=== PATIENT | male | born 1935 | race Caucasian/White ===

== ENCOUNTER 2017-03-25 14:51 | Emergency (ER) | payer OTHER, MEDICARE ==
[2017-03-25] MEDS ORDERED: DIPH/PERTUSS(ACELL)/TETANUS VAC/PF 0.5 ML SYR (>=10YO) IM ONE (15:54)
[2017-03-25] MEDS ORDERED: ONDANSETRON 4 MG TAB.RAPDIS PO ONE (15:54)
[2017-03-25] MEDS ORDERED: OXYCODONE HCL IR 5 MG TABLET PO ONE (15:54)
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
[2017-03-25] MEDS ORDERED: OXYCODONE-ACETAMINOPHEN 5-325 MG TABLET PO ONE (17:33)
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
--- NOTE | 2017-03-25 19:08 | EKG REPORT ---
SEVERITY:- ABNORMAL ECG - ATRIAL FIBRILLATION, V-RATE 50-76 : Confirmed by: Pola Last MD 25-Mar-2017 19:07:03
[2017-03-25 19:31] VITALS: BP 149/79
== END 2017-03-25 18:40 | disposition home or self-care (01) ==
LOC: ER 14:51
DX: S20.212A Contusion of left front wall of thorax, initial encounter (principal); S30.1XXA Contusion of abdominal wall, initial encounter; S80.11XA Contusion of right lower leg, initial encounter; S51.811A Laceration without foreign body of right forearm, initial encounter; R07.81 Pleurodynia; V43.52XA Car driver injured in collision with other type car in traffic accident, initial encounter; I48.91 Unspecified atrial fibrillation; I25.10 Atherosclerotic heart disease of native coronary artery without angina pectoris; E78.00 Pure hypercholesterolemia, unspecified; I10 Essential (primary) hypertension; E11.9 Type 2 diabetes mellitus without complications; K21.9 Gastro-esophageal reflux disease without esophagitis; G89.29 Other chronic pain; M54.9 Dorsalgia, unspecified; Z79.02 Long term (current) use of antithrombotics/antiplatelets; I25.2 Old myocardial infarction; Z23 Encounter for immunization
CPT/HCPCS: 93005; 99284; 90471; 71020; 73562; 73590; 70450; 90715; 93010; S0119

== ENCOUNTER 2017-07-19 10:28 | Day surgery (SDC) | payer MEDICARE ==
[2017-07-08 12:21] LABS: HEMATOCRIT 39.5 % (37.9-51.0); HEMOGLOBIN 13.1 g/dL (13.5-17.0); HGB HCT DIFFERENCE -0.2; MEAN CORPUSCULAR HEMOGLOBIN 31.2 pg (27.0-33.4); MEAN CORPUSCULAR HGB CONC 33.1 g/dL (32.0-36.0); MEAN CORPUSCULAR VOLUME 94 fl (80-97); RED CELL DISTRIBUTION WIDTH 13.9 % (11.5-14.0); WHITE BLOOD COUNT 6.4 10^3/uL (4.0-10.5)
[2017-07-08 12:24] LABS: PROTHROMBIN TIME 15.2 SEC (11.4-15.4)
[2017-07-08 12:25] LABS: PARTIAL THROMBOPLASTIN TIME 38.3 SEC (23.5-35.8)
[2017-07-08 12:56] LABS: ANION GAP 11 (5-19); BLOOD UREA NITROGEN 25 mg/dL (7-20); CALCIUM 9.8 mg/dL (8.4-10.2); CARBON DIOXIDE 26 mmol/L (22-30); CHLORIDE 103 mmol/L (98-107); CREATININE RESULT 1.49 mg/dL (0.52-1.25); GLUCOSE 159 mg/dL (75-110); POTASSIUM 4.2 mmol/L (3.6-5.0); SODIUM 140.1 mmol/L (137-145)
--- NOTE | 2017-07-08 18:44 | EKG REPORT ---
SEVERITY:- ABNORMAL ECG - ATRIAL FIBRILLATION NONSPECIFIC T ABNORMALITIES, LATERAL LEADS : Confirmed by: Pola Last MD 08-Jul-2017 18:43:58
--- NOTE | 2017-07-11 14:24 | RADIOLOGY REPORT (SQ) ---
EXAM DESCRIPTION: CHEST PA/LATERAL COMPLETED DATE/TIME: 07/11/2017 1:40 pm REASON FOR STUDY: PRE OP COMPARISON: None. EXAM PARAMETERS: NUMBER OF VIEWS: two views TECHNIQUE: Digital Frontal and Lateral radiographic views of the chest acquired. RADIATION DOSE: NA LIMITATIONS: none FINDINGS: LUNGS AND PLEURA: No opacities, masses or pneumothorax. No pleural effusion. MEDIASTINUM AND HILAR STRUCTURES: No masses or contour abnormalities. HEART AND VASCULAR STRUCTURES: Heart normal size. No evidence for failure. Tortuous thoracic aorta is identified. BONES: No acute findings. HARDWARE: None in the chest. OTHER: No other significant finding. IMPRESSION: NO SIGNIFICANT RADIOGRAPHIC FINDING IN THE CHEST. TECHNICAL DOCUMENTATION: JOB ID: [id number] [employer]- All Rights Reserved
[~2017-07-19 10:28] MED LIST: CEFAZOLIN 1 GM/D5W RTU 1 GM/50 ML RTUPB IV PRN; LIDOCAINE 1% INJ-PF (10 MG/ML) 30 ML SDV ONE; NORMAL SALINE 1000 ML 1,000 ML IV PRN; SODIUM BICARBONATE 8.4% INJ 50 MEQ/50 ML DISP.SYRIN ONE
[2017-07-19] MEDS ORDERED: KETAMINE HCL INJ 500 MG/10 ML VIAL ONE (11:23)
[2017-07-19] MEDS ORDERED: LIDOCAINE 2% INJ-PF (20 MG/ML) 10 ML AMPUL ONE (11:23)
[2017-07-19] MEDS ORDERED: ACETAMINOPHEN 100 ML IV ONE (11:24)
[2017-07-19] MEDS ORDERED: MIDAZOLAM 2 MG/2 ML INJ ONE (11:24)
[2017-07-19] MEDS ORDERED: FENTANYL CITRATE INJ/PF 100 MCG/2 ML AMPUL ONE (11:24)
[2017-07-19] MEDS ORDERED: PROPOFOL INJ 200 MG/20 ML VIAL IV ONE (11:24)
[2017-07-19] MEDS ORDERED: LIDOCAINE 0.5%/EPINEPHRINE INJ 50 ML VIAL ONE (11:30)
[2017-07-19 11:33] LABS: POTASSIUM 4.1 mmol/L (3.6-5.0)
[2017-07-19] MEDS ORDERED: DIPHENHYDRAMINE HCL 50 MG/ML VIAL IV PRN (12:32)
[2017-07-19] MEDS ORDERED: FENTANYL CITRATE INJ/PF 100 MCG/2 ML AMPUL IV PRN ×3 (12:32)
[2017-07-19] MEDS ORDERED: PROMETHAZINE HCL INJ 25 MG/1 ML VIAL IV PRN ×2 (12:32)
[2017-07-19] MEDS ORDERED: OXYCODONE-ACETAMINOPHEN 5-325 MG TABLET PO PRN ×2 (12:32)
[2017-07-19] MEDS ORDERED: MORPHINE SULFATE 10 MG/ML INJ IV PRN (12:32)
[2017-07-19] MEDS ORDERED: MEPERIDINE HCL/PF INJ 25 MG/1 ML DISP.SYRIN IV PRN (12:32)
[2017-07-19] MEDS ORDERED: ONDANSETRON HCL INJ/PF 4 MG/2 ML SDV IV PRN (12:32)
--- NOTE | 2017-07-19 13:31 | Operative Report ---
Operative Report DATE OF SURGERY: 07/19/17 PREOPERATIVE DIAGNOSIS: Basal cell carcinoma of the left distal forearm POSTOPERATIVE DIAGNOSIS: Same deep and lateral margins are free. OPERATION: Excision of basal cell carcinoma of the left distal forearm with frozen section margin control and reconstruction with a boomerang sliding advancement flap SURGEON: JERRELL BBO ANESTHESIA: LMAC TISSUE REMOVED OR ALTERED: Basal cell carcinoma COMPLICATIONS: None ESTIMATED BLOOD LOSS: Minimal PROCEDURE: Patient seen and was marked prior to being brought into the operating room. Patient was brought into the operating room and placed on the operating room table in a [supine] position. Patient was then prepped with a Betadine scrub and Betadine solution and draped in a sterile and aseptic manner. The area was then marked. 12 O'clock was marked towards the elbow 3 O'clock was marked towards the ulnar forearm 6:00 was marked towards the wrist 9:00 was marked towards the radial forearm The area was then anesthetized with half percent lidocaine with epinephrine and bicarbonate for its anesthetic and hemostatic effects. The area was then excised and marked at 12:00. The specimen was sent for frozen section. The results came back that the deep and lateral margins were free. We had considered a primary closure but this would go against the natural relaxed skin tension lines. A primary closure would be too tight and would have increased chance of dehiscence. This will leave more of a scar so we decided to use a boomerang flap reconstruction which would camouflage the scar better and take tension off of the closure so that would be less chances of complications. Then went ahead and outlined the flap and anesthetized it. Then incised the flap and developed a flap maintaining the subdermal plexus. Then we undermined 360 to allow for plate like scarring and minimize trap door deformity. Throughout the case hemostasis was achieved with the bipolar. The skin was very fragile and it was difficult to perform the reconstruction. Again the flap was designed so that would be the least amount of tension especially when the patient flexes his wrist. We were unable to do a deep closure because the tissue was so poor quality and so thin. We then sutured the flap into its new position using 4-0 Prolene . Skin was closed with a simple interrupted and vertical mattress sutures using 4- 0 Prolene with knots being tied on the outside. We then applied tincture benzoin and Steri-Strips followed by a light pressure dressing. A splint was applied to protect the repair. It was good that we had placed a splint with the wrist in extension because the patient was combative on awakening and this would have tore the reconstruction if we did not have a splint. Patient was then reversed from anesthesia and taken to the [facility] for recovery. The patient tolerated well. There were no complications. Lesion size was [approximately 1 cm] please see pathology for actual size. Portions of this note may be dictated using [employer] voice recognition software. Occasional variations and spelling and vocabulary could be possible and are unintentional. Additionally, there is a chance that some errors may not be caught or corrected. Please notify the offer of any discrepancies noted or if any statements are unclear. Subjective: No complaints Objective: Vital signs stable afebrile No bleeding Dressing intact Assessment and plan: Doing well. Elevate the operative site. Resume medications. Take antibiotics for 1 day Follow-up Full instructions were given to the patient and family and they understand Portions of this note may be dictated using [employer] voice recognition software. Occasional variations and spelling and vocabulary could be possible and are unintentional. Additionally, there is a chance that some errors may not be caught or corrected. Please notify the offer of any discrepancies noted or if any statements are unclear.
--- NOTE | 2017-07-19 13:33 | PDOC DISCHARGE SUMMARY ---
Discharge Summary (SDC) - Discharge Final Diagnosis: Basal cell carcinoma of the left distal forearm Date of Surgery: 07/19/17 Condition: Good Treatment or Instructions: Leave the top dressing on for 2 days, then removed. Leave the steri-strip tapes on for 5 days, then removal. Then cleaning wound with peroxide and apply Neosporin/bacitracin 3 times per day. Antibiotics for 1 day, then discontinue. Elevate operative area to decrease swelling. Do not strain, or lift heavy objects. Call for excessive bleeding, increased temperature of 101, uncontrolled pain, or excessive nausea or vomiting. You may reach Dr. Burger through his office at [phone]. In the event of an emergency after hours, then contact Dr. Burger through [facility]. Return to the office for a postop check on . The time will be scheduled by the nursing staff of [facility] prior to discharge. Please give the patient a copy of their labs and EKG so they can bring this to their PMD. Thank you Portions of this note may be dictated using [employer] voice recognition software. Occasional variations and spelling and vocabulary could be possible and are unintentional. Additionally, there is a chance that some errors may not be caught or corrected. Please notify the offer of any discrepancies noted or if any statements are unclear. Referrals: ANNA MARTI MD [Primary Care Provider] - Discharge Activity: No Lifting Over 10 Pounds, No Lifting/Push/Pulling - Keep the arm elevated. Limited activities with the arm that was operated on.
[2017-07-19 15:02] VITALS: BP 146/81
== END 2017-07-19 15:01 | disposition home or self-care (01) ==
LOC: OROUT 10:28
PROVIDERS: ATTEND Plastic Surgery
PROC: 0HBEXZZ Excision of Left Lower Arm Skin, External Approach (ICD-10-PCS; 2017-07-19)
PROC: 0HXEXZZ Transfer Left Lower Arm Skin, External Approach (ICD-10-PCS; principal; 2017-07-19 12:30)
DX: C44.699 Other specified malignant neoplasm of skin of left upper limb, including shoulder (principal); E11.9 Type 2 diabetes mellitus without complications; E78.5 Hyperlipidemia, unspecified; I10 Essential (primary) hypertension; K21.9 Gastro-esophageal reflux disease without esophagitis; I48.2 Chronic atrial fibrillation; N40.0 Benign prostatic hyperplasia without lower urinary tract symptoms; C44.619 Basal cell carcinoma of skin of left upper limb, including shoulder; M19.90 Unspecified osteoarthritis, unspecified site; E66.9 Obesity, unspecified; Z68.30 Body mass index [BMI] 30.0-30.9, adult; Z79.82 Long term (current) use of aspirin; Z79.01 Long term (current) use of anticoagulants; Z79.899 Other long term (current) drug therapy
CPT/HCPCS: 93005; 36415 ×2; 82947; 84132; 85027; 85610; 85730; 80048; 88305 ×2; 88331 ×2; 71020; 93010; 14020; J2250; J0690; J3010; J3490 ×4; J2704; J0131; 400

== ENCOUNTER 2017-10-15 18:27 | Emergency (ER) | payer MEDICARE ==
--- NOTE | 2017-10-15 20:10 | RADIOLOGY REPORT (SQ) ---
EXAM DESCRIPTION: CT HEAD WITHOUT COMPLETED DATE/TIME: 10/15/2017 7:58 pm REASON FOR STUDY: fall COMPARISON: 03/25/2017 TECHNIQUE: Axial images acquired through the brain without intravenous contrast. Images reviewed wi th bone, brain and subdural windows. Images stored on PACS. All CT scanners at this facility use dose modulation, iterative reconstruction, and/or weight based d osing when appropriate to reduce radiation dose to as low as reasonably achievable (ALARA). [facility]: Dose Right [facility]: CareDose [facility]: Dose Right [facility]: Teradose 4D [facility]: Smart DataSync RADIATION DOSE: CT Rad equipment meets quality standard of care and radiation dose reduction techniq ues were employed. CTDIvol: 64.6 mGy. DLP: 1163 mGy-cm.mGy. LIMITATIONS: None. FINDINGS: VENTRICLES: Stable size and configuration. CEREBRUM: No masses. No hemorrhage. No midline shift. Areas of low density in the white matter mos t likely due to chronic micro-vascular ischemic change. No evidence for acute infarction. CEREBELLUM: No masses. No hemorrhage. No alteration of density. No evidence for acute infarction. EXTRAAXIAL SPACES: Age-related involutional change. No fluid collections. No masses. ORBITS AND GLOBE: No intra- or extraconal masses. Normal contour of globe without masses. CALVARIUM: No fracture. PARANASAL SINUSES: Left maxillary mucous retention cyst versus polyp. SOFT TISSUES: No mass or hematoma. OTHER: Atherosclerotic vascular calcifications are seen within the cavernous segments of the internal carotid arteries. IMPRESSION: CHRONIC CHANGES OF ATROPHY AND MICROVASCULAR ISCHEMIA. NO ACUTE PROCESS. EVIDENCE OF ACUTE STROKE: NO. TECHNICAL DOCUMENTATION: JOB ID: [id number] Quality ID # [id number]: Final reports with documentation of one or more dose reduction techniques (e.g., Au tomated exposure control, adjustment of the mA and/or kV according to patient size, use of iterative reconstruction technique) 2010 [employer]- All Rights Reserved
[2017-10-15 20:23] VITALS: BP 162/80
--- NOTE | 2017-10-15 20:23 | ER Document Report ---
ED General - General Chief Complaint: Fall Injury Stated Complaint: FALL HEAD INJURY Time Seen by Provider: 10/15/17 19:51 TRAVEL OUTSIDE OF THE [place] IN LAST 30 DAYS: No - HPI Patient complains to provider of: Fall head injury Notes: Patient coming in for evaluation of fall and head injury. Patient states he is on Eliquis due to a "heart condition". Patient states tripped and fall hitting the left side of his head. Patient does have obvious contusion. Patient has other abrasions as well. Denies any chest pain abdominal pain fever chills nausea vomiting denies any syncope denies any loss of consciousness. - Related Data Allergies/Adverse Reactions: adhesive tape Adverse Reaction (Intermediate, Verified 10/15/17 18:49) Pruritis Past Medical History - Social History Smoking Status: Never Smoker Frequency of alcohol use: None Drug Abuse: None Family History: CAD Patient has suicidal ideation: No Patient has homicidal ideation: No - Past Medical History Cardiac Medical History: Reports: Hx Atrial Fibrillation, Hx Coronary Artery Disease, Hx Heart Attack - [place] X 2, Hx Hypercholesterolemia, Hx Hypertension Denies: Hx Congestive Heart Failure, Hx Heart Murmur Pulmonary Medical History: Denies: Hx Asthma, Hx Bronchitis, Hx COPD, Hx Pneumonia, Hx Tuberculosis Neurological Medical History: Denies: Hx Cerebrovascular Accident, Hx Seizures Endocrine Medical History: Reports: Hx Diabetes Mellitus Type 2 Renal/ Medical History: Denies: Hx Peritoneal Dialysis GI Medical History: Reports: Hx Gastroesophageal Reflux Disease, Hx Hiatal Hernia. Denies: Hx Hepatitis, Hx Ulcer Musculoskeltal Medical History: Reports Hx Arthritis, Denies Hx Muscle Weakness Psychiatric Medical History: Denies: Hx Depression Infectious Medical History: Denies: Hx Hepatitis Past Surgical History: Reports: Hx Cardiac Catheterization, Hx Coronary Stent, Hx Herniorrhaphy. Denies: Hx Pacemaker. Comment Only: Hx Open Heart Surgery - STENT PLACED - Immunizations Hx Diphtheria, Pertussis, Tetanus Vaccination: Yes Hx Pneumococcal Vaccination: 03/04/14 Review of Systems - Review of Systems Constitutional: No symptoms reported EENT: No symptoms reported Cardiovascular: No symptoms reported Respiratory: No symptoms reported Gastrointestinal: No symptoms reported Genitourinary: No symptoms reported Male Genitourinary: No symptoms reported Musculoskeletal: No symptoms reported Skin: No symptoms reported Hematologic/Lymphatic: No symptoms reported Neurological/Psychological: Other - Abrasions to the head fall head injury Physical Exam - Vital signs Vitals: Temp Pulse Resp BP Pulse Ox 98.3 F 51 L 22 H 151/69 H 96 10/15/17 18:41 10/15/17 18:41 10/15/17 18:41 10/15/17 18:41 10/15/17 18:41 Interpretation: Normal - General General appearance: Appears well, Alert - HEENT Head: Normocephalic, Other - Swelling to the left orbit some bruising lateral left orbit. No pain to palpation the pain to palpation of the poles of the face. Eyes: Normal Pupils: PERRL - Respiratory Respiratory status: No respiratory distress Chest status: Nontender Breath sounds: Normal Chest palpation: Normal - Cardiovascular Rhythm: Regular Heart sounds: Normal auscultation Murmur: No - Abdominal Inspection: Normal Distension: No distension Bowel sounds: Normal Tenderness: Nontender Organomegaly: No organomegaly - Back Back: Normal, Nontender - Extremities General upper extremity: Normal inspection, Nontender, Normal color, Normal ROM , Normal temperature, Other - Abrasions to both hands General lower extremity: Normal inspection, Nontender, Normal color, Normal ROM , Normal temperature, Normal weight bearing. No: Maru's sign - Neurological Neuro grossly intact: Yes Cognition: Normal Orientation: AAOx4 Perham Coma Scale Eye Opening: Spontaneous Amber Coma Scale Verbal: Oriented Perham Coma Scale Motor: Obeys Commands Amber Coma Scale Total: 15 Speech: Normal Motor strength normal: LUE, RUE, LLE, RLE Sensory: Normal - Psychological Associated symptoms: Normal affect, Normal mood - Skin Skin Temperature: Warm Skin Moisture: Dry Skin Color: Normal Course - Re-evaluation Re-evalutation: 10/15/17 20:22 CT scan was negative. Patient was educated about abrasion care. Patient will be discharged home family members agrees with care. - Vital Signs Vital signs: Temp Pulse Resp BP Pulse Ox 98.3 F 51 L 22 H 151/69 H 96 10/15/17 18:41 10/15/17 18:41 10/15/17 18:41 10/15/17 18:41 10/15/17 18:41 Discharge - Discharge Clinical Impression: Closed head injury Qualifiers: Encounter type: initial encounter Qualified Code(s): S09.90XA - Unspecified injury of head, initial encounter Orbital contusion Qualifiers: Encounter type: initial encounter Laterality: left Qualified Code(s): S05.12XA - Contusion of eyeball and orbital tissues, left eye, initial encounter Condition: Good Disposition: HOME, SELF-CARE Instructions: Head Injury Precautions ([facility]), Contusion ([facility]) Additional Instructions: Your CAT scan does not show any evidence of bleeding at this time. Please follow-up with your primary care physician as needed. Return to the ER for any concerning issues.
== END 2017-10-15 20:23 | disposition home or self-care (01) ==
LOC: ER 18:27
DX: S05.12XA Contusion of eyeball and orbital tissues, left eye, initial encounter (principal); S09.90XA Unspecified injury of head, initial encounter; R22.0 Localized swelling, mass and lump, head; W19.XXXA Unspecified fall, initial encounter
CPT/HCPCS: 70450; 99284

== ENCOUNTER 2018-10-31 14:34 | Emergency (ER) | payer MEDICARE ==
[2018-10-31 14:52] VITALS: BP 143/67
[2018-10-31] MEDS ORDERED: OXYCODONE-ACETAMINOPHEN 5-325 MG TABLET PO ONE (15:25)
--- NOTE | 2018-10-31 15:27 | ER Document Report ---
ED Fall - General Chief Complaint: Fall Injury Stated Complaint: FALL/ARM PAIN Time Seen by Provider: 10/31/18 15:15 TRAVEL OUTSIDE OF THE [place] IN LAST 30 DAYS: No - HPI Notes: Patient is a 82-year-old male that presents to the emergency department for chief complaint of right shoulder pain. Just prior to arrival patient was sitting in a wheelchair. He states he leaned forward in the chair went out from behind him. He fell on his right side. He denied any head injury or loss of consciousness. Since then he has had a sharp pain in his right shoulder and elbow. The pain is worse with movement. He has not taken any [id number] medications for pain. He denies any numbness or tingling. He denies any relieving factors. He is currently taking Eliquis for history of heart attacks. Past Medical History: IN, CAD Past Surgical History: reviewed in chart Social History: Denies drugs alcohol and tobacco Family History: Reviewed and noncontributory for presenting illness Allergies: Reviewed, see documented allergy list. REVIEW OF SYSTEMS: CONSTITUTIONAL : No fever No chills No diaphoresis No recent illness EENT: No vision changes No congestion No sore throat CARDIOVASCULAR: No chest pain No palpitations RESPIRATORY: No shortness of breath No cough No difficulty breathing GASTROINTESTINAL: No abdominal pain No nausea No vomiting No diarrhea GENITOURINARY: No dysuria No hematuria No difficulty urinating MUSCULOSKELETAL: No back pain No leg pain arm pain SKIN: No rashes No lesions LYMPHATIC: No swollen, enlarged glands. NEUROLOGICAL: No lightheadedness No headache No weakness No paresthesias PSYCHIATRIC: No anxiety No depression PHYSICAL EXAMINATION: Vital signs reviewed, nursing noted reviewed. GENERAL: Well-appearing, well-nourished and in no acute distress. HEAD: Atraumatic, normocephalic. EYES: Eyes appear normal, extraocular movements intact, sclera anicteric, conjunctiva are normal. ENT: nares patent, oropharynx clear without exudates. Moist mucous membranes. NECK: Normal range of motion, supple without lymphadenopathy LUNGS: Breath sounds clear to auscultation bilaterally and equal. No wheezes rales or rhonchi. HEART: Regular rate and rhythm without murmurs ABDOMEN: Soft, nontender, normoactive bowel sounds. No rebound, guarding, or rigidity. No masses appreciated. EXTREMITIES: Decreased range of motion of right shoulder, no obvious deformity, tenderness to palpation of right shoulder, humerus and elbow diffusely. Normal range of motion of right elbow. Normal right wrist exam. No overlying ecchymosis or abrasions. NEUROLOGICAL: No focal neurological deficits. Moves all extremities spontaneously Motor and sensory grossly intact on exam. PSYCH: Normal mood, normal affect. SKIN: Warm, Dry, normal turgor, no rashes or lesions noted on exposed skin - Related data Allergies/Adverse Reactions: adhesive tape Adverse Reaction (Intermediate, Verified 10/15/17 18:49) Pruritis Past Medical History - Social History Smoking Status: Unknown if Ever Smoked Family History: CAD Patient has suicidal ideation: No Patient has homicidal ideation: No - Past Medical History Cardiac Medical History: Reports: Hx Atrial Fibrillation, Hx Coronary Artery Disease, Hx Heart Attack - [place] X 2, Hx Hypercholesterolemia, Hx Hypertension Denies: Hx Congestive Heart Failure, Hx Heart Murmur Pulmonary Medical History: Denies: Hx Asthma, Hx Bronchitis, Hx COPD, Hx Pneumonia, Hx Tuberculosis Neurological Medical History: Denies: Hx Cerebrovascular Accident, Hx Seizures Endocrine Medical History: Reports: Hx Diabetes Mellitus Type 2 Renal/ Medical History: Denies: Hx Peritoneal Dialysis GI Medical History: Reports: Hx Gastroesophageal Reflux Disease, Hx Hiatal Hernia. Denies: Hx Hepatitis, Hx Ulcer Musculoskeletal Medical History: Reports Hx Arthritis, Denies Hx Muscle Weakness Psychiatric Medical History: Denies: Hx Depression Infectious Medical History: Denies: Hx Hepatitis Past Surgical History: Reports: Hx Cardiac Catheterization, Hx Coronary Stent, Hx Herniorrhaphy. Denies: Hx Pacemaker. Comment Only: Hx Open Heart Surgery - STENT PLACED - Immunizations Hx Diphtheria, Pertussis, Tetanus Vaccination: Yes Hx Pneumococcal Vaccination: 03/04/14 Physical Exam - Vital signs Vitals: Temp Pulse Resp BP Pulse Ox 98.0 F 53 L 20 143/67 H 98 10/31/18 14:49 10/31/18 14:49 10/31/18 14:49 10/31/18 14:49 10/31/18 14:49 Course - Re-evaluation Re-evalutation: 10/31/18 15:27 Vitals reviewed. Nursing notes reviewed. Patient given pain medication for symptom medic management. X-ray of the right shoulder and elbow will be obtained to evaluate for acute fracture. Patient did not have any head injury and has no active bleeding. Further blood work not currently indicated. 12/11/18 16:14 X-ray shows no acute fracture. Patient will be given a sling for comfort. He will be given a prescription for Woodland for pain management at home. He was advised to follow closely with his primary care doctor for reevaluation. He will stop using the sling as tolerated. I did encourage him to range his shoulder through full range of motion a few times a day to prevent frozen shoulder. He will return for any new or worsening symptoms. Discharged home in stable condition. - Vital Signs Vital signs: Temp Pulse Resp BP Pulse Ox 98.0 F 53 L 20 143/67 H 98 10/31/18 14:49 10/31/18 14:49 10/31/18 14:49 10/31/18 14:49 10/31/18 14:49 Discharge - Discharge Clinical Impression: Right elbow pain, Pulmonary nodule Right shoulder pain Qualifiers: Chronicity: acute Qualified Code(s): M25.511 - Pain in right shoulder Condition: Stable Disposition: HOME, SELF-CARE Instructions: Shoulder Injury ([facility]), Temporary Sling ([facility]) Additional Instructions: Please return to the emergency department if you have any worsening, or concern of your symptoms. Please return to the emergency department if you develop chest pain, difficulty breathing, severe abdominal pain, or ongoing vomiting. Please follow-up with your primary care physician in 2-3 days and any other recommended physicians. If prescribed, take all medications as directed. If you have any questions or concerns do not hesitate to return the emergency department for evaluation. There was a nodule seen on the top of your right lung which looked similar in comparison to previous studies. Follow with your primary care doctor for further management of this lung nodule. Prescriptions: Hydrocodone/Acetaminophen [[place] 5-325 mg Tablet] 1 tab PO Q6 #10 tablet Referrals: ANGELO FULTON MD [Primary Care Provider] - Follow up in 3-5 days
--- NOTE | 2018-10-31 15:58 | RADIOLOGY REPORT (SQ) ---
EXAM DESCRIPTION: ELBOW RIGHT AP/LAT COMPLETED DATE/TIME: 10/31/2018 3:50 pm REASON FOR STUDY: trauma COMPARISON: None. NUMBER OF VIEWS: Two views. TECHNIQUE: AP and lateral radiographic images acquired of the right elbow. LIMITATIONS: None. FINDINGS: MINERALIZATION: Normal. BONES: No acute fracture or dislocation. No worrisome bone lesions. JOINT: No effusion. SOFT TISSUES: No soft tissue swelling. No foreign body. OTHER: No other significant finding. IMPRESSION: No fracture or dislocation of the right elbow. No elbow joint effusion to suggest radio graphically occult fracture of the right radial head or neck. TECHNICAL DOCUMENTATION: JOB ID: [id number] [employer]- All Rights Reserved Reading location - IP/workstation name: [email or web address]
--- NOTE | 2018-10-31 16:00 | RADIOLOGY REPORT (SQ) ---
EXAM DESCRIPTION: SHOULDER RIGHT 2 OR MORE VIEWS COMPLETED DATE/TIME: 10/31/2018 3:50 pm REASON FOR STUDY: trauma COMPARISON: Chest radiograph, 07/11/2007 NUMBER OF VIEWS: Three views. TECHNIQUE: Internal rotation, external rotation, and Y view images acquired of the right shoulder. LIMITATIONS: None. FINDINGS: MINERALIZATION: Normal. BONES: No acute fracture or dislocation. No worrisome bone lesions. JOINTS: No dislocation. Severe arthrosis of the right acromioclavicular joint. VISUALIZED LUNGS AND RIBS: No pneumothorax. No rib fracture. There is a possible calcified nodule o f the right pulmonary apex, unchanged in appearance compared to prior chest radiograph dated 7. SOFT TISSUES: No radiopaque foreign body. OTHER: No other significant finding. IMPRESSION: 1. No fracture or dislocation of the right shoulder. Severe right acromioclavicular ost eoarthritis. 2. There is a possible calcified nodule of the right pulmonary apex, unchanged in appearance compared to prior chest radiograph dated 07/11/2017. TECHNICAL DOCUMENTATION: JOB ID: [id number] [employer]- All Rights Reserved Reading location - IP/workstation name: [email or web address]
== END 2018-10-31 16:26 | disposition home or self-care (01) ==
LOC: ER 14:34
DX: M25.521 Pain in right elbow (principal); M25.511 Pain in right shoulder; W05.0XXA Fall from non-moving wheelchair, initial encounter; R91.1 Solitary pulmonary nodule; E11.9 Type 2 diabetes mellitus without complications; I25.10 Atherosclerotic heart disease of native coronary artery without angina pectoris; I10 Essential (primary) hypertension; I25.2 Old myocardial infarction; Z79.01 Long term (current) use of anticoagulants
CPT/HCPCS: 99283; 73070; 73030; A9270

== ENCOUNTER → 2018-11-15 | Day surgery (SDC) | payer MEDICARE, OTHER ==
--- NOTE | 2018-11-15 14:14 | RADIOLOGY REPORT (SQ) ---
EXAM DESCRIPTION: CT RT UPPER EXTREMITY WITH COMPLETED DATE/TIME: 11/15/2018 1:59 pm REASON FOR STUDY: M25.511 PAIN IN RIGHT SHOULDER M25.511 PAIN IN RIGHT SHOULDER COMPARISON: None. TECHNIQUE: Axial imaging performed through the rightshoulder with reformatted oblique coronal and ob lique sagittal imaging windowed for bone and soft tissues. All CT scanners at this facility use dose modulation, iterative reconstruction, and/or weight based d osing when appropriate to reduce radiation dose to as low as reasonably achievable (ALARA). [facility]: Dose Right [facility]: CareDose [facility]: Dose Right [facility]: Teradose 4D [facility]: WatchGuard RADIATION DOSE: CT Rad equipment meets quality standard of care and radiation dose reduction techniq ues were employed. CTDIvol: 17.5 mGy. DLP: 465 mGy-cm. mGy. LIMITATIONS: None. FINDINGS: SOFT TISSUES: No axillary or supraclavicular adenopathy. BONY ARCHITECTURE: Normal bone density for age. No fracture. GLENOHUMERAL JOINT: No malalignment. No high-grade chondromalacia ACROMION AND AC JOINT: Type 2 acromion with mild bony spurring at the AC joint ROTATOR CUFF: Diffuse full-thickness tear of the supra and infraspinatus distal tendons. Free leakag e of contrast from the joint space into the subacromial/ subdeltoid bursa. No supraspinatus or infra spinatus muscle atrophy. Subscapularis intact. GLENOID, LABRUM AND BICEPS: Grossly intact. OTHER: No other significant finding. IMPRESSION: Diffuse full-thickness rotator cuff tear right shoulder, without fatty muscle atrophy. TECHNICAL DOCUMENTATION: JOB ID: [id number] Quality ID # [id number]: Final reports with documentation of one or more dose reduction techniques (e.g., Au tomated exposure control, adjustment of the mA and/or kV according to patient size, use of iterative reconstruction technique) 2010 [employer]- All Rights Reserved Reading location - IP/workstation name: [email or web address]
--- NOTE | 2018-11-15 14:15 | RADIOLOGY REPORT (SQ) ---
EXAM DESCRIPTION: ARTHRO SHOULDER INJECTION; FLUORO/NEEDLE PLACEMENT COMPLETED DATE/TIME: 11/15/2018 1:39 pm REASON FOR STUDY: M25.511 PAIN IN RIGHT SHOULDER M25.511 PAIN IN RIGHT SHOULDER COMPARISON: Right shoulder films 10/31/2018 FLUOROSCOPY TIME: 15 seconds 2 digital fluoroscopic images saved to PACS. LIMITATIONS: None. PROCEDURE: Procedure, risks, benefits and alternative explained to patient who then gave written con sent. The anterior right glenohumeral joint at the shoulder was marked and a time-out was called for correct marking verification. Anterior entry site marked using fluoroscopic guidance. Shoulder pre pped and draped using sterile technique. Local anesthesia achieved using 7 mL 1% lidocaine injection . A 22 gauge spinal needle introduced into the joint space under direct fluoroscopic visualization. Non-ionic contrast instilled to confirm intra-articular position. Additional dilute non-ionic contr ast instilled. Needle removed and entry site covered with sterile bandage. No immediate complicatio ns noted. TECHNIQUE: Digital images acquired during fluoroscopy and stored on PACS. Patient immediately take n to the CT suite for additional imaging. INJECTION LOCATION: Anterior right glenohumeral joint CONTRAST TYPE AND AMOUNT: 1 mL of Omnipaque 300 was injected to confirm intra-articular needle placem ent followed by 10 mL of dilute Omnipaque/saline mixture for CT arthrogram IMPRESSION: SUCCESSFUL NEEDLE PLACEMENT AND INJECTION FOR RIGHT SHOULDER CT ARTHROGRAM USING ANTERIO R APPROACH. COMMENT: Quality ID 145: Final reports for procedures using fluoroscopy that document radiation exp osure indices, or exposure time and number of fluorographic images (if radiation exposure indices are not available) TECHNICAL DOCUMENTATION: JOB ID: [id number] [employer]- All Rights Reserved Reading location - IP/workstation name: [email or web address]
--- NOTE | 2018-11-15 14:15 | RADIOLOGY REPORT (SQ) ---
EXAM DESCRIPTION: ARTHRO SHOULDER INJECTION; FLUORO/NEEDLE PLACEMENT COMPLETED DATE/TIME: 11/15/2018 1:39 pm REASON FOR STUDY: M25.511 PAIN IN RIGHT SHOULDER M25.511 PAIN IN RIGHT SHOULDER COMPARISON: Right shoulder films 10/31/2018 FLUOROSCOPY TIME: 15 seconds 2 digital fluoroscopic images saved to PACS. LIMITATIONS: None. PROCEDURE: Procedure, risks, benefits and alternative explained to patient who then gave written con sent. The anterior right glenohumeral joint at the shoulder was marked and a time-out was called for correct marking verification. Anterior entry site marked using fluoroscopic guidance. Shoulder pre pped and draped using sterile technique. Local anesthesia achieved using 7 mL 1% lidocaine injection . A 22 gauge spinal needle introduced into the joint space under direct fluoroscopic visualization. Non-ionic contrast instilled to confirm intra-articular position. Additional dilute non-ionic contr ast instilled. Needle removed and entry site covered with sterile bandage. No immediate complicatio ns noted. TECHNIQUE: Digital images acquired during fluoroscopy and stored on PACS. Patient immediately take n to the CT suite for additional imaging. INJECTION LOCATION: Anterior right glenohumeral joint CONTRAST TYPE AND AMOUNT: 1 mL of Omnipaque 300 was injected to confirm intra-articular needle placem ent followed by 10 mL of dilute Omnipaque/saline mixture for CT arthrogram IMPRESSION: SUCCESSFUL NEEDLE PLACEMENT AND INJECTION FOR RIGHT SHOULDER CT ARTHROGRAM USING ANTERIO R APPROACH. COMMENT: Quality ID 145: Final reports for procedures using fluoroscopy that document radiation exp osure indices, or exposure time and number of fluorographic images (if radiation exposure indices are not available) TECHNICAL DOCUMENTATION: JOB ID: [id number] [employer]- All Rights Reserved Reading location - IP/workstation name: [email or web address]
== END ==
LOC: RAD 12:41
PROVIDERS: ATTEND Orthopaedic Surgery Sports Medicine
DX: M25.511 Pain in right shoulder (principal)
CPT/HCPCS: 23350; 77002

== ENCOUNTER 2019-10-16 12:11 | Emergency (ER) | payer MEDICARE ==
--- NOTE | 2019-10-16 12:29 | ER Document Report ---
ED Fall - General Chief Complaint: Fall Injury Stated Complaint: FALL/NECK,BACK PAIN Time Seen by Provider: 10/16/19 12:22 Primary Care Provider: ANGELO FULTON MD [Primary Care Provider] - Follow up as needed Notes: 83-year-old male presents to the ER after falling. He was helping in a [employer] and he lost his balance and fell and hit his head. Patient does not believe he lost consciousness. He is not completely sure. The patient is on Eliquis. The patient states he has an ache in the back of his head and has noticed some blood on his hands. He was brought here for evaluation the patient describes the pain in the back of his head is mild and aching. Worse with touching the area. The patient denies any chest pain or shortness of breath. Denies extremity numbness tingling or weakness. TRAVEL OUTSIDE OF THE [place] IN LAST 30 DAYS: No - Related data Allergies/Adverse Reactions: adhesive tape Adverse Reaction (Intermediate, Verified 06/11/19 13:32) Pruritis Past Medical History - Social History Smoking Status: Unknown if Ever Smoked Family History: CAD - Past Medical History Cardiac Medical History: Reports: Hx Atrial Fibrillation, Hx Coronary Artery Disease, Hx Heart Attack - [place] X 2, Hx Hypercholesterolemia, Hx Hypertension Denies: Hx Congestive Heart Failure, Hx Heart Murmur Pulmonary Medical History: Denies: Hx Asthma, Hx Bronchitis, Hx COPD, Hx Pneumonia, Hx Tuberculosis Neurological Medical History: Denies: Hx Cerebrovascular Accident, Hx Seizures Endocrine Medical History: Reports: Hx Diabetes Mellitus Type 2 Renal/ Medical History: Denies: Hx Peritoneal Dialysis GI Medical History: Reports: Hx Gastroesophageal Reflux Disease, Hx Hiatal He rnia. Denies: Hx Hepatitis, Hx Ulcer Musculoskeletal Medical History: Reports Hx Arthritis, Denies Hx Muscle Weakness Psychiatric Medical History: Denies: Hx Depression Infectious Medical History: Denies: Hx Hepatitis Past Surgical History: Reports: Hx Cardiac Catheterization, Hx Coronary Stent, Hx Herniorrhaphy. Denies: Hx Pacemaker. Comment Only: Hx Open Heart Surgery - STENT PLACED - Immunizations Hx Diphtheria, Pertussis, Tetanus Vaccination: Yes Hx Pneumococcal Vaccination: 03/04/14 Review of Systems - Review of Systems Constitutional: denies: Chills, Fever Cardiovascular: denies: Dyspnea Respiratory: denies: Short of breath Gastrointestinal: denies: Abdominal pain Neurological/Psychological: Headaches -: Yes All other systems reviewed and negative Physical Exam - Vital signs Vitals: Resp Pulse Ox 18 100 10/16/19 12:24 10/16/19 12:24 - Notes Notes: GENERAL_APPEARANCE: well_nourished, alert, cooperative VITALS: reviewed, see vital signs table. HEAD: 3 cm hematoma with abrasion on the occiput midline EYES: PERRL, EOMI, conjunctiva_clear. NOSE: no_nasal_discharge. MOUTH: (-)decreased moisture. THROAT: no_tonsilar_inflammation, no_airway_obstruction. no_lymphadenopathy NECK: supple, vague right paraspinal tenderness at C3_neck_tenderness, (- )thyromegaly. BACK: no_back_tenderness. CHEST_WALL: no_chest_tenderness. LUNGS: no_wheezing, no_rales, no_rhonchi, (-)accessory muscle use, good air exchange bilateral. HEART: normal_rate, normal_rhythm, normal_S1, normal_S2, (-)S3, (-)S4, n o_murmur, no_rub. ABDOMEN: normal_BS, soft, no_abd_tenderness, (-)guarding, (-)rebound, no_organomegaly, no_abd_masses. EXTREMITIES: good pulses in all_extremities, no_swelling\tenderness in the ext remities, no_edema. SKIN: warm, dry, good_color, no_rash. MENTAL_STATUS: speech_clear, oriented_X_3, normal_affect, responds_appropriately to questions. NEURO: Neg Motor or Sensory Deficits on exam, CN 2-12 intact, DTR 2+ symmetric x 4, No cerbellar signs Course - Re-evaluation Re-evalutation: 10/16/19 12:29 Early male presents to the ER after a fall. He does not believe he lost consciousness. Rechecking some generalized labs. EKG. We will get a CT the head and neck. We will monitor him closely. He has a hematoma and an abrasion on the back is had nothing require suturing. He is very pleasant conversant. 10/16/19 14:24 Patient was found to have a 5 mm subdural along the falx. Patient is on Eliquis. I spoke with the patient and family --the patient wanted to sign out AMA initially but then changed his mind after family spoke with him son is an emergency physician. They chose [facility]. I spoke with [facility] spoke with Dr. Jose Guadalupe Arias trauma. Transfer the patient trauma yellow ER to ER. I started looking for ground transport for the patient. The closest ground transport we could get his 6 hours away because of the patient's anticoagulation status and known hemorrhage I think it is important to get the patient to the tertiary center faster. We do not have adnexa or kcentra here. Therefore if he has a change in status we would not have any reversal agent for the Eliquis. In order to expedite transfer to the tertiary center the patient will be sent via helicopter. - Vital Signs Vital signs: Temp Pulse Resp BP Pulse Ox 97.8 F 57 L 20 166/80 H 98 10/16/19 12:26 10/16/19 12:26 10/16/19 13:32 10/16/19 13:32 10/16/19 13:32 - Laboratory Result Diagrams: 10/16/19 12:26 10/16/19 12:26 Laboratory results interpreted by me: 10/16/19 12:26 BUN 23 H Creatinine 1.54 H Est GFR ( Amer) 52 L Est GFR (MDRD) Non-Af 43 L Glucose 224 H - Diagnostic Test Radiology reviewed: Reports reviewed Radiology results interpreted by me: 10/16/19 14:[address] 10/16/19 12:26 IMPRESSION: No acute fracture or malalignment. Multilevel central and foraminal stenosis. Head CT 10/16/19 12:26 IMPRESSION: Thin rim falx subdural without significant mass effect. No midline shift. No acute brain parenchymal changes. EVIDENCE OF ACUTE STROKE: NO. Discharge - Discharge Clinical Impression: Subdural hematoma Condition: Fair Disposition: [facility] Referrals: ANGELO FULTON MD [Primary Care Provider] - Follow up as needed
[2019-10-16 12:39] LABS: ABSOLUTE EOSINOPHILS # (AUTO) 0.2 10^3/uL (0.0-0.6); ABSOLUTE LYMPHOCYTES (AUTO) 1.4 10^3/uL (0.5-4.7); ABSOLUTE MONOCYTES (AUTO) 0.7 10^3/uL (0.1-1.4); ABSOLUTE NEUT (AUTO) 5.4 10^3/uL (1.7-8.2); BASOPHILS % (AUTO) 0.6 % (0-2); HEMATOCRIT 41.1 % (37.9-51.0); HEMOGLOBIN 13.8 g/dL (13.5-17.0); LYMPHOCYTES % (AUTO) 18.7 % (13-45); MEAN CORPUSCULAR HEMOGLOBIN 31.5 pg (27.0-33.4); MEAN CORPUSCULAR HGB CONC 33.6 g/dL (32.0-36.0); MEAN CORPUSCULAR VOLUME 94 fl (80-97); MONOCYTES % (AUTO) 8.6 % (3-13); PLATELET COUNT 225 10^3/uL (150-450); RED BLOOD COUNT 4.38 10^6/uL (4.35-5.55); SEGMENTED NEUTROPHILS % (AUTO) 70.1 % (42-78); TOTAL CELLS COUNTED % (AUTO) 100 %; WHITE BLOOD COUNT 7.6 10^3/uL (4.0-10.5)
[2019-10-16 13:06] LABS: ANION GAP 9 (5-19); BLOOD UREA NITROGEN 23 mg/dL (7-20); CALCIUM 9.3 mg/dL (8.4-10.2); CARBON DIOXIDE 25 mmol/L (22-30); CHLORIDE 104 mmol/L (98-107); GLUCOSE 224 mg/dL (75-110); POTASSIUM 4.2 mmol/L (3.6-5.0)
--- NOTE | 2019-10-16 13:25 | RADIOLOGY REPORT (SQ) ---
EXAM DESCRIPTION: CT HEAD WITHOUT COMPLETED DATE/TIME: 10/16/2019 1:10 pm REASON FOR STUDY: Head Injury headache on Eliquis COMPARISON: CT brain 06/11/2019, 10/15/2017, 12/05/2014, 02/18/2009 TECHNIQUE: Axial images acquired through the brain without intravenous contrast. Images reviewed wi th bone, brain and subdural windows. Additional sagittal and coronal reconstructions were generated. Images stored on PACS. All CT scanners at this facility use dose modulation, iterative reconstruction, and/or weight based d osing when appropriate to reduce radiation dose to as low as reasonably achievable (ALARA). [facility]: Dose Right [facility]: CareDose [facility]: Dose Right [facility]: Teradose 4D [facility]: Smart Technologies RADIATION DOSE: CT Rad equipment meets quality standard of care and radiation dose reduction techniq ues were employed. CTDIvol: 53.2 mGy. DLP: 1124 mGy-cm. mGy. LIMITATIONS: None. FINDINGS: On axial image 27, and coronal images 24-41, a thin acute subdural hemorrhage is present a long the leftward falx. No significant mass effect. No midline shift. No acute subarachnoid or par enchymal hemorrhage. This result was called as a critical finding to Dr. Taylor, 1305 hours 10/16/2019. VENTRICLES: Normal size and contour. CEREBRUM: No masses. No acute parenchymal hemorrhage. No midline shift. No evidence for acute infa rction. Normal oates/white matter differentiation. No areas of low density in the white matter. CEREBELLUM: No masses. No hemorrhage. 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 No evidence for acute infarction. EXTRAAXIAL SPACES: Thin rim acute subdural hemorrhage along the leftward falx as above. ORBITS AND GLOBE: No intra- or extraconal masses. Post cataract surgery bilaterally CALVARIUM: No fracture. PARANASAL SINUSES: No fluid or mucosal thickening. SOFT TISSUES: No mass or hematoma. OTHER: No other significant finding. IMPRESSION: Thin rim falx subdural without significant mass effect. No midline shift. No acute bra in parenchymal changes. EVIDENCE OF ACUTE STROKE: NO. COMMENT: Pertinent findings on the imaging study reported as a CRITICAL RESULT to EVENS TAYLOR MD at13:05 on 10/16/2019. Category of Critical Result: Acute thin rim falx subdural hemorrhage Quality ID # [id number]: Final reports with documentation of one or more dose reduction techniques (e.g., Au tomated exposure control, adjustment of the mA and/or kV according to patient size, use of iterative reconstruction technique) TECHNICAL DOCUMENTATION: JOB ID: [id number] [employer]- All Rights Reserved Reading location - IP/workstation name: [email or web address]
--- NOTE | 2019-10-16 13:31 | RADIOLOGY REPORT (SQ) ---
EXAM DESCRIPTION: CT CERVICAL SPINE WITHOUT COMPLETED DATE/TIME: 10/16/2019 1:10 pm REASON FOR STUDY: Head Injury COMPARISON: CT brain same date CT cervical spine 08/09/2014 TECHNIQUE: Axial images acquired through the cervical spine without intravenous contrast. Images re viewed with lung, soft tissue and bone windows. Reconstructed coronal and sagittal MPR images review ed. Images stored on PACS. All CT scanners at this facility use dose modulation, iterative reconstruction, and/or weight based d osing when appropriate to reduce radiation dose to as low as reasonably achievable (ALARA). [facility]: Dose Right [facility]: CareDose [facility]: Dose Right [facility]: Teradose 4D [facility]: Smart [employer] RADIATION DOSE: CT Rad equipment meets quality standard of care and radiation dose reduction techniq ues were employed. CTDIvol: 23.2 mGy. DLP: 451 mGy-cm. mGy. LIMITATIONS: None. FINDINGS: ALIGNMENT: Anatomic. MINERALIZATION: Normal. VERTEBRAL BODIES: No fractures or dislocation. DISCS: Craniocervical junction, C1-2 are unremarkable. At C2-3, moderate left foraminal narrowing results from asymmetric facet and ligament hypertrophy. M ild posterior disc bulging without central stenosis or significant right foraminal narrowing. At C3-4, broad diffuse posterior disc bulging is present without central or left foraminal narrowing. Moderate to high-grade right foraminal narrowing from facet and uncovertebral hypertrophy. At C4-5, mild central canal stenosis results from broad diffuse posterior disc bulging left greater t jalloh right. No right foraminal narrowing. High-grade left foraminal narrowing from facet and uncover tebral hypertrophy. At C5-6, mild central canal narrowing results from broad diffuse posterior disc bulge and bony spurri ng. No significant right foraminal narrowing. Moderate left foraminal stenosis from facet and uncov ertebral hypertrophy. At C6-7, central canal stenosis results from broad diffuse posterior disc bulging right greater than left. Moderate right, high-grade left foraminal narrowing from facet and uncovertebral hypertrophy. C7-T1 is unremarkable. FACETS, LATERAL MASSES, POSTERIOR ELEMENTS: No acute fracture HARDWARE: None in the spine. VISUALIZED RIBS: No fractures. LUNG APICES AND SOFT TISSUES: Calcified carotid bifurcations bilaterally. OTHER: No other significant finding. IMPRESSION: No acute fracture or malalignment. Multilevel central and foraminal stenosis. TECHNICAL DOCUMENTATION: JOB ID: [id number] Quality ID # [id number]: Final reports with documentation of one or more dose reduction techniques (e.g., Au tomated exposure control, adjustment of the mA and/or kV according to patient size, use of iterative reconstruction technique) 2010 [employer]- All Rights Reserved Reading location - IP/workstation name: [email or web address]
[2019-10-16 14:31] VITALS: BP 141/95
--- NOTE | 2019-10-16 18:33 | EKG REPORT ---
SEVERITY:- ABNORMAL ECG - ATRIAL FIBRILLATION, V-RATE 42-59 : Confirmed by: Natalie Millard 16-Oct-2019 18:32:51
== END 2019-10-16 14:32 | disposition short-term general hospital (02) ==
LOC: ER 12:11
DX: S06.5X9A Traumatic subdural hemorrhage with loss of consciousness of unspecified duration, initial encounter (principal); M54.2 Cervicalgia; M54.9 Dorsalgia, unspecified; W19.XXXA Unspecified fall, initial encounter; Y92.79 Other farm location as the place of occurrence of the external cause; Z79.02 Long term (current) use of antithrombotics/antiplatelets; I48.91 Unspecified atrial fibrillation; I25.10 Atherosclerotic heart disease of native coronary artery without angina pectoris; E78.00 Pure hypercholesterolemia, unspecified; I10 Essential (primary) hypertension; E11.9 Type 2 diabetes mellitus without complications; I25.2 Old myocardial infarction
CPT/HCPCS: 36415; 70450; 72125; 80048; 85025; 93005; 93010; 99285

== ENCOUNTER 2019-11-07 05:21 | Inpatient (IN) | payer MEDICARE ==
[2019-11-07 07:01] LABS: ABSOLUTE EOSINOPHILS # (AUTO) 0.1 10^3/uL (0.0-0.6); ABSOLUTE LYMPHOCYTES (AUTO) 0.9 10^3/uL (0.5-4.7); ABSOLUTE MONOCYTES (AUTO) 0.6 10^3/uL (0.1-1.4); ABSOLUTE NEUT (AUTO) 7.7 10^3/uL (1.7-8.2); BASOPHILS % (AUTO) 0.5 % (0-2); EOSINOPHILS % (AUTO) 1.5 % (0-6); HEMATOCRIT 44.2 % (37.9-51.0); HEMOGLOBIN 14.7 g/dL (13.5-17.0); LYMPHOCYTES % (AUTO) 9.5 % (13-45); MEAN CORPUSCULAR HEMOGLOBIN 31.3 pg (27.0-33.4); MEAN CORPUSCULAR HGB CONC 33.4 g/dL (32.0-36.0); MEAN CORPUSCULAR VOLUME 94 fl (80-97); MONOCYTES % (AUTO) 6.4 % (3-13); PLATELET COUNT 235 10^3/uL (150-450); RED BLOOD COUNT 4.71 10^6/uL (4.35-5.55); RED CELL DISTRIBUTION WIDTH 14.1 % (11.5-14.0); SEGMENTED NEUTROPHILS % (AUTO) 82.1 % (42-78); TOTAL CELLS COUNTED % (AUTO) 100 %; WHITE BLOOD COUNT 9.4 10^3/uL (4.0-10.5)
--- NOTE | 2019-11-07 07:07 | RADIOLOGY REPORT (SQ) ---
Chest single view on 11/07/2019 at 6:45 AM CLINICAL INDICATION: Chest pain, shortness of breath COMPARISON: 07/11/2017 FINDINGS: Vascular calcification is noted in the aorta. Heart is upper limits normal for size. There is patchy left lower lung opacity suggestive of pneumonia. Lungs are otherwise clear. Hilar and mediastinal contours are within normal limits. IMPRESSION: Patchy left lower lung opacity suggestive of pneumonia.
[2019-11-07] MEDS ORDERED: AZITHROMYCIN 250 MG TABLET PO ONE (07:14)
[2019-11-07 07:19] LABS: ALBUMIN 4.5 g/dL (3.5-5.0); ALKALINE PHOSPHATASE 117 U/L (38-126); ANION GAP 14 (5-19); ASPARTATE AMINO TRANSFERASE 24 U/L (17-59); BILIRUBIN,DIRECT 0.4 mg/dL (0.0-0.4); BILIRUBIN,TOTAL 1.2 mg/dL (0.2-1.3); BLOOD UREA NITROGEN 23 mg/dL (7-20); CALCIUM 9.6 mg/dL (8.4-10.2); CARBON DIOXIDE 23 mmol/L (22-30); CHLORIDE 102 mmol/L (98-107); GLUCOSE 201 mg/dL (75-110); POTASSIUM 4.4 mmol/L (3.6-5.0); TOTAL PROTEIN 8.3 g/dL (6.3-8.2)
[2019-11-07 07:25] LABS: VENOUS BLOOD BASE EXCESS -2.3 mmol/L; VENOUS BLOOD PCO2 41.2 mmHg (35-63); VENOUS BLOOD PH 7.36 (7.30-7.42)
[2019-11-07 07:31] LABS: NT PRO BNP 2820 pg/mL (<450)
[2019-11-07 07:35] LABS: TROPONIN I < 0.012 ng/mL
[2019-11-07] MEDS ORDERED: NORMAL SALINE 1000 ML 500 ML IV ONE (07:41)
[2019-11-07] MEDS ORDERED: ACETAMINOPHEN 325 MG TABLET PO ONE (07:42)
[2019-11-07 08:13] LABS: A TYPE INFLUENZA AG NEGATIVE (NEGATIVE); B INFLUENZA AG NEGATIVE (NEGATIVE)
--- NOTE | 2019-11-07 08:29 | ER Document Report ---
ED General - General Chief Complaint: Chest Congestion Stated Complaint: CHEST CONGESTION Time Seen by Provider: 11/07/19 06:03 Primary Care Provider: ANGELO FULTON MD [Primary Care Provider] - Follow up as needed Information source: Patient, Relative TRAVEL OUTSIDE OF THE [place] IN LAST 30 DAYS: No - HPI Notes: Patient presents complaining of shortness of breath and left-sided chest pain. He states that for several days he has had cough cold and congestion that is progressively been getting worse. He states he is also had fevers and chills. Patient states that the shortness of breath is severe. It is constant. It is worse with exertion and better with rest. His chest pain does radiate throughout his chest. But is mainly left-sided. It is sharp. He denies any previous history of COPD or CHF. States he has not a smoker. - Related Data Allergies/Adverse Reactions: adhesive tape Adverse Reaction (Intermediate, Verified 06/11/19 13:32) Pruritis Past Medical History - General Information source: Patient, Relative - Social History Smoking Status: Never Smoker Frequency of alcohol use: None Drug Abuse: None Family History: CAD Patient has suicidal ideation: No Patient has homicidal ideation: No - Past Medical History Cardiac Medical History: Reports: Hx Atrial Fibrillation, Hx Coronary Artery Disease, Hx Heart Attack - [place] X 2, Hx Hypercholesterolemia, Hx Hypertension Denies: Hx Congestive Heart Failure, Hx Heart Murmur Pulmonary Medical History: Denies: Hx Asthma, Hx Bronchitis, Hx COPD, Hx Pneumonia, Hx Tuberculosis Neurological Medical History: Denies: Hx Cerebrovascular Accident, Hx Seizures Endocrine Medical History: Reports: Hx Diabetes Mellitus Type 2 Renal/ Medical History: Denies: Hx Peritoneal Dialysis GI Medical History: Reports: Hx Gastroesophageal Reflux Disease, Hx Hiatal Hernia. Denies: Hx Hepatitis, Hx Ulcer Musculoskeletal Medical History: Reports Hx Arthritis, Denies Hx Muscle Weakness Psychiatric Medical History: Denies: Hx Depression Infectious Medical History: Denies: Hx Hepatitis Past Surgical History: Reports: Hx Cardiac Catheterization, Hx Coronary Stent, Hx Herniorrhaphy. Denies: Hx Pacemaker. Comment Only: Hx Open Heart Surgery - STENT PLACED - Immunizations Hx Diphtheria, Pertussis, Tetanus Vaccination: Yes Hx Pneumococcal Vaccination: 03/04/14 Review of Systems - Review of Systems Constitutional: Chills, Fever, Malaise Cardiovascular: Chest pain, Palpitations Respiratory: Cough, Short of breath -: Yes All other systems reviewed and negative Physical Exam - Vital signs Vitals: Temp Pulse BP Pulse Ox 98.4 F 76 175/83 H 93 11/07/19 05:27 11/07/19 05:27 11/07/19 05:27 11/07/19 05:27 Interpretation: Hypoxic - 89% on room air, Tachypneic, Febrile - General General appearance: Alert, Anxious In distress: Mild - HEENT Head: Normocephalic, Atraumatic Eyes: Normal Pupils: PERRL - Respiratory Respiratory status: Respiratory distress - Mild Chest status: Nontender Breath sounds: Rhonchi Chest palpation: Normal - Cardiovascular Rhythm: Irregularly irregular Heart sounds: Normal auscultation Murmur: No - Abdominal Inspection: Normal Distension: No distension Bowel sounds: Normal Tenderness: Nontender Organomegaly: No organomegaly - Back Back: Normal, Nontender - Extremities General upper extremity: Normal inspection, Nontender, Normal color, Normal ROM, Normal temperature General lower extremity: Normal inspection, Nontender, Edema - 1+ bilaterally, Normal color, Normal ROM, Normal temperature. No: Maru's sign - Neurological Neuro grossly intact: Yes Cognition: Normal Orientation: AAOx4 Amber Coma Scale Eye Opening: Spontaneous [place] Coma Scale Verbal: Oriented [place] Coma Scale Motor: Obeys Commands [place] Coma Scale Total: 15 Speech: Normal Motor strength normal: LUE, RUE, LLE, RLE Sensory: Normal - Psychological Associated symptoms: Normal affect, Anxious - Skin Skin Temperature: Warm Skin Moisture: Dry Skin Color: Normal Course - Re-evaluation Re-evalutation: 11/07/19 08:27 Patient presents with hypoxia, tachypnea, fever and shortness of breath with increased work of breathing. Patient was immediately placed on BiPAP. He has had significant improvement with this. He is also been given IV fluids. I did not give the sepsis fluids as patient has not tachycardic or hypotensive. He does have some edema and mildly elevated BNP so I have started off with small doses of IV fluids. Patient has also been given antibiotics. I have discussed the case with the admitting physician and the family. - Vital Signs Vital signs: Temp Pulse Resp BP Pulse Ox 98.4 F 90 22 H 154/84 H 98 11/07/19 05:27 11/07/19 07:09 11/07/19 07:09 11/07/19 07:09 11/07/19 07:09 - Laboratory Result Diagrams: 11/07/19 06:35 11/07/19 06:35 Laboratory results interpreted by me: 11/07/19 11/07/19 11/07/19 06:35 06:35 06:35 RDW 14.1 H Lymph % (Auto) 9.5 L Seg Neutrophils % 82.1 H BUN 23 H Creatinine 1.60 H Est GFR ( Amer) 50 L Est GFR (MDRD) Non-Af 41 L Glucose 201 H POC Glucose NT-Pro-B Natriuret Pep 2820 H Total Protein 8.3 H 11/07/19 06:59 RDW Lymph % (Auto) Seg Neutrophils % BUN Creatinine Est GFR ( Amer) Est GFR (MDRD) Non-Af Glucose POC Glucose 160 H NT-Pro-B Natriuret Pep Total Protein - Diagnostic Test Radiology reviewed: Image reviewed, Reports reviewed - EKG Interpretation by Me Rate: Normal - 91 Rhythm: A.Fib [place]/QRS: No: Right axis deviation, Left axis deviation Critical Care Note - Critical Care Note Total time excluding time spent on procedures (mins): 45 Comments: 45 minutes of critical care time were spent on this patient. This time was spent managing the patient's respiratory distress and hypoxia. It was also spent reviewing imaging and labs. It was spent talking with health and wellness sales consultant and with family. It was spent doing multiple reassessments. Discharge - Discharge Clinical Impression: Pneumonia Qualifiers: Pneumonia type: due to unspecified organism Laterality: left Lung location: lower lobe of lung Qualified Code(s): J18.9 - Pneumonia, unspecified organism Respiratory failure Qualifiers: Chronicity: acute Respiratory failure complication: hypoxia Qualified Code(s): J96.01 - Acute respiratory failure with hypoxia Condition: Critical Disposition: ADMITTED INPATIENT Admitting Provider: [facility] Admitted: [facility] Referrals: ANGELO FULTON MD [Primary Care Provider] - Follow up as needed
[2019-11-07] MEDS ORDERED: IPRATROPIUM/ALBUTEROL 0.5-2.5 MG/3 ML AMPUL NEB PRN (08:37)
[2019-11-07] MEDS ORDERED: GLUCAGON,HUMAN RECOMB 1 MG INJ IM PRN (08:42)
[2019-11-07] MEDS ORDERED: DEXTROSE 40% GEL 15 GM TUBE PO PRN ×2 (08:42)
[2019-11-07] MEDS ORDERED: DEXTROSE 50%-WATER 25 GM/50 ML DISP.SYRIN IV PRN ×2 (08:42)
[2019-11-07] MEDS: FAMOTIDINE 20 MG TABLET PO SCH ×2 (09:37→21:31)
[2019-11-07] MEDS: CEFEPIME 1 GM/D5W RTU 1 GM/50 ML RTUPB IV SCH ×2 (09:38→21:32)
[2019-11-07] MEDS ORDERED: AZITHROMYCIN 250 MG TABLET PO SCH (10:00)
[2019-11-07 11:44] LABS: ANION GAP 10 (5-19); BLOOD UREA NITROGEN 21 mg/dL (7-20); CALCIUM 8.7 mg/dL (8.4-10.2); CARBON DIOXIDE 23 mmol/L (22-30); CHLORIDE 104 mmol/L (98-107); CREATINE KINASE 69 U/L (55-170); GLUCOSE 192 mg/dL (75-110); POTASSIUM 3.6 mmol/L (3.6-5.0)
[2019-11-07 11:54] LABS: CREATINE KINASE MB 0.51 ng/mL (<4.55); TROPONIN I 0.015 ng/mL
[2019-11-07] MEDS ORDERED: ACETAMINOPHEN 325 MG TABLET PO PRN (12:13)
[2019-11-07] MEDS: INSULIN LISPRO 100 UNIT/ML 3 ML VIAL SUBCUT SCH ×3 (13:15→21:40)
--- NOTE | 2019-11-07 14:32 | RADIOLOGY REPORT (SQ) ---
EXAM DESCRIPTION: CT CHEST WITHOUT COMPLETED DATE/TIME: 11/07/2019 1:53 pm REASON FOR STUDY: Shortness of the breath/pneumonia COMPARISON: AP view of the chest from 11/07/2019. TECHNIQUE: CT scan performed of the chest without intravenous contrast. Images reviewed with lung, soft tissue and bone windows. Reconstructed coronal and sagittal MPR images reviewed. All images st ored on PACS. All CT scanners at this facility use dose modulation, iterative reconstruction, and/or weight based d osing when appropriate to reduce radiation dose to as low as reasonably achievable (ALARA). [facility]: Dose Right [facility]: CareDose [facility]: Dose Right [facility]: Teradose 4D [facility]: Smart [employer] RADIATION DOSE: CT Rad equipment meets quality standard of care and radiation dose reduction techniq ues were employed. CTDIvol: 17.5 mGy. DLP: 664 mGy-cm. LIMITATIONS: No technical limitations. FINDINGS: LUNGS AND PLEURA: The trachea and main bronchi are patent. There is bronchiectasis, bronc hiolectasis or segmental mucus plugging. There is an area of patchy consolidation in the left lower lobe with air bronchograms ; the consolidation extends to the pleural surface in there is a trace bryan unt of fluid in the adjacent pleural space. In addition there are scattered centrilobular nodular op acities in the left upper and superior portion of the left lower lobe. HILAR AND MEDIASTINAL STRUCTURES: Evaluation of the faith for adenopathy is limited due to the absence of intravenous contrast. There are prominent powder tracheal and sub- carinal lymph nodes that yisel ure up to 9 mm in short axis diameter HEART AND VASCULAR STRUCTURES: Evaluation is limited due to the absence of intravenous contrast. The re is atherosclerotic calcification of the aortic arch and coronary arteries. The left ventricle and atrium are enlarged. There is no pericardial effusion. UPPER ABDOMEN: Chololithiasis with associated gallbladder wall thickening or pericholecystic fluid THYROID AND OTHER SOFT TISSUES: No masses or adenopathy. BONES: No acute findings. HARDWARE: None in the chest. OTHER: No other findings. IMPRESSION: Patchy area of consolidation in the left lower lobe with air bronchograms and scattered centrilobular nodular opacities in the left upper and superior portion of the left lower lobe. Clini td correlation to exclude a multifocal infection is recommended. TECHNICAL DOCUMENTATION: JOB ID: [id number] Quality ID # [id number]: Final reports with documentation of one or more dose reduction techniques (e.g., Au tomated exposure control, adjustment of the mA and/or kV according to patient size, use of iterative reconstruction technique) 2010 [employer]- All Rights Reserved Reading location - IP/workstation name: [email or web address]
--- NOTE | 2019-11-07 15:23 | RADIOLOGY REPORT (SQ) ---
EXAM DESCRIPTION: NM LUNG VENT/PERF SCAN COMPLETED DATE/TIME: 11/07/2019 2:57 pm REASON FOR STUDY: sob/hypoxia COMPARISON: None. RADIONUCLIDE AND DOSE: 5.14 millicuries TC-99m MAA Intravenous 32.6 millicuries TC-99m DTPA Inhaled aerosol TECHNIQUE: Eight views of the lungs acquired post ventilation of DTPA aerosol. Eight matching views of the lungs acquired following injection of MAA. LIMITATIONS: Patient coughing. FINDINGS: VENTILATION: Generalized decreased uptake in the left lower lobe consistent with pneumonia . PERFUSION: Perfusion images with normal homogenous activity and no wedge-shaped or segmental defects. No ventilation-perfusion mismatches. OTHER: No other significant finding. IMPRESSION: Low probability for pulmonary embolus. TECHNICAL DOCUMENTATION: JOB ID: [id number] [employer]- All Rights Reserved Reading location - IP/workstation name: [email or web address]
--- NOTE | 2019-11-07 17:03 | PDOC H&P ---
History of Present Illness Admission Date/PCP: 11/07/19 08:35 ANGELO FULTON MD Patient complains of: sob/chest pain/cough/fever History of Present Illness: SUSY GIORDANO is a 83 year old male Is a 83-year-old male with a history of the type 2 diabetes hypertension hyperlipidemia coronary artery disease came to the emergency department with a complaining of left-sided chest pain short of breath since last 3 days and also complaining of increasing the pain and a fever and chills In the emergency department patient's chest x-ray consistent with a pneumonia danette plascencia also recently have a fall and subdural hematoma patient's went to the [facility] on September and patient was on Eliquis because of the A. fib was stopped Patient's initially put on a BiPAP due to the respiratory distressed and the patient's giving the IV antibiotic When I saw the patient's feel better denied any chest pain patient CT of the chest consistent with a pneumonia patient's VQ scan is also negative Patient have a multiple comorbidity including the patient have a coronary artery disease currently see the Dr. Gudino patient also have a chronic kidney disease currently seeing Dr. Alvarado Patient with type 2 diabetes currently very noncompliance patient also noncompli ance to taking the medications and buying the medication also Past Medical History Cardiac Medical History: Reports: Atrial Fibrillation, Coronary Artery Disease, Myocardial Infarction - [place] X 2, Hyperlipidema, Hypertension Denies: Congestive Heart Failure, Heart Murmur Pulmonary Medical History: Denies: Asthma, Bronchitis, Chronic Obstructive Pulmonary Disease (COPD), Pneumonia, Tuberculosis Neurological Medical History: Denies: Seizures Endocrine Medical History: Reports: Diabetes Mellitus Type 2 Renal/ Medical History: Reports: Chronic Kidney Disease GI Medical History: Reports: Gastroesophageal Reflux Disease, Hiatal Hernia Denies: Hepatitis Musculoskeltal Medical History: Reports: Arthritis Psychiatric Medical History: Denies: Depression Traumatic History Note: hx sub dural hematoma 09/2019 Hematology: Denies: Anemia, Hemophilia, Sickle Cell Disease Past Surgical History Past Surgical History: Reports: Cardiac Catheterization, Coronary Stent, Herniorrhaphy Denies: Pacemaker Social History Information Source: Patient Smoking Status: Never Smoker Frequency of Alcohol Use: None Hx Recreational Drug Use: No Hx Prescription Drug Abuse: No Family History Family History: Reviewed & Not Pertinent, CAD Parental Family History Reviewed: Yes Children Family History Reviewed: Yes Sibling(s) Family History Reviewed.: Yes Medication/Allergy Home Medications: Acetaminophen [Tylenol 325 mg Tablet] 650 mg PO Q6HP PRN 11/07/19 Amlodipine Besylate [Norvasc 10 mg Tablet] 10 mg PO DAILY 11/07/19 Aspirin [Adult Low Dose Aspirin EC] 81 mg PO DAILY 11/07/19 Atorvastatin Calcium [Lipitor 40 mg Tablet] 40 mg PO QHS 11/07/19 Brimonidine Tartrate [Alphagan 0.2% Oph Soln 5 ml] 1 drop OU BID 11/07/19 Donepezil HCl [Aricept] 10 mg PO QHS 11/07/19 Finasteride [Proscar 5 mg Tablet] 5 mg PO DAILY 11/07/19 Furosemide [Lasix 40 mg Tablet] 40 mg PO DAILY 11/07/19 Glimepiride [Amaryl 4 mg Tablet] 4 mg PO [id number] 11/07/19 Metoprolol Succinate [Toprol Xl 50 mg Tab.sr] 50 mg PO DAILY 11/07/19 Nateglinide [Starlix 60 mg Tablet] 60 mg PO TID 11/07/19 [place]-3 Fatty Acids/Fish Oil [Fish Oil 1,000 mg Capsule] 1 cap PO DAILY 11/07/19 Pantoprazole Sodium [Protonix [address] Tablet] 40 mg PO DAILY 11/07/19 Pramipexole Di-HCl [Mirapex 0.5 mg Tablet] 0.5 mg PO DAILY 11/07/19 Ranitidine HCl [Zantac] 150 mg PO DAILY 11/07/19 Tamsulosin HCl [Flomax 0.4 mg Cap.sr] 0.4 mg PO QPM 11/07/19 Timolol Maleate [Timoptic 0.5% Oph Soln 5 ml] 1 drop OU BID 11/07/19 Allergies/Adverse Reactions: adhesive tape Adverse Reaction (Intermediate, Verified 06/11/19 13:32) Pruritis Review of Systems Constitutional: PRESENT: chills, fever(s). ABSENT: headache(s), weight gain, weight loss Eyes: ABSENT: visual disturbances Ears: ABSENT: hearing changes Cardiovascular: PRESENT: chest pain, dyspnea on exertion. ABSENT: edema, orthropnea, palpitations Respiratory: PRESENT: cough, dyspnea. ABSENT: hemoptysis Gastrointestinal: ABSENT: abdominal pain, constipation, diarrhea, hematemesis, hematochezia, nausea, vomiting Genitourinary: ABSENT: dysuria, hematuria Musculoskeletal: ABSENT: joint swelling Integumentary: ABSENT: rash, wounds Neurological: ABSENT: abnormal gait, abnormal speech, confusion, dizziness, focal weakness, syncope Psychiatric: ABSENT: anxiety, depression, homidical ideation, suicidal ideation Endocrine: ABSENT: cold intolerance, heat intolerance, menstrual abnormalities, polydipsia, polyuria Hematologic/Lymphatic: ABSENT: easy bleeding, easy bruising, lymphadenopathy Physical Exam Vital Signs: Temp Pulse Resp BP Pulse Ox 99.8 F 90 22 H 140/90 H 94 11/07/19 09:22 11/07/19 07:09 11/07/19 09:01 11/07/19 09:01 11/07/19 09:01 Intake & Output 11/06/19 11/07/19 11/08/19 06:59 06:59 06:59 Intake Total 550 Balance 550 Weight 96 kg General appearance: PRESENT: mild distress, well-developed, well-nourished Head exam: PRESENT: atraumatic, normocephalic Eye exam: PRESENT: conjunctiva pink, EOMI, PERRLA. ABSENT: scleral icterus Ear exam: PRESENT: normal external ear exam Mouth exam: PRESENT: moist, tongue midline Neck exam: PRESENT: full ROM. ABSENT: carotid bruit, JVD, lymphadenopathy, thyromegaly Respiratory exam: PRESENT: decreased breath sounds Cardiovascular exam: PRESENT: RRR. ABSENT: diastolic murmur, rubs, systolic murmur Pulses: PRESENT: normal dorsalis pedis pul, +2 pedal pulses bilateral Vascular exam: PRESENT: normal capillary refill GI/Abdominal exam: PRESENT: normal bowel sounds, soft. ABSENT: distended, guarding, mass, organolmegaly, rebound, tenderness Rectal exam: PRESENT: deferred Extremities exam: ABSENT: pedal edema Neurological exam: PRESENT: alert, awake, oriented to person, oriented to place, oriented to time, oriented to situation, CN II-XII grossly intact. ABSENT: motor sensory deficit Psychiatric exam: PRESENT: appropriate affect, normal mood. ABSENT: homicidal ideation, suicidal ideation Skin exam: PRESENT: dry, intact, warm. ABSENT: cyanosis, rash Results Laboratory Results: 11/07/19 06:35 11/07/19 11:07 11/07/19 11/07/19 11/07/19 06:35 06:35 06:55 WBC 9.4 RBC 4.71 Hgb 14.7 Hct 44.2 MCV 94 MCH 31.3 MCHC 33.4 RDW 14.1 H Plt Count 235 Seg Neutrophils % 82.1 H VBG pH 7.36 VBG pCO2 41.2 VBG HCO3 23.0 VBG Base Excess -2.3 Sodium 139.2 Potassium 4.4 Chloride 102 Carbon Dioxide 23 Anion Gap 14 BUN 23 H Creatinine 1.60 H Est GFR ( Amer) 50 L Glucose 201 H Calcium 9.6 Total Bilirubin 1.2 AST 24 Alkaline Phosphatase 117 Total Protein 8.3 H Albumin 4.5 11/07/19 11:07 WBC RBC Hgb Hct MCV MCH MCHC RDW Plt Count Seg Neutrophils % VBG pH VBG pCO2 VBG HCO3 VBG Base Excess Sodium 137.4 Potassium 3.6 Chloride 104 Carbon Dioxide 23 Anion Gap 10 BUN 21 H Creatinine 1.46 H Est GFR ( Amer) 56 L Glucose 192 H Calcium 8.7 Total Bilirubin AST Alkaline Phosphatase Total Protein Albumin 11/07/19 11/07/19 11/07/19 06:35 11:07 11:07 Creatine Kinase 69 CK-MB (CK-2) 0.51 Troponin I < 0.012 0.015 NT-Pro-B Natriuret Pep 2820 H Impressions: Chest X-Ray 11/07/19 06:27 IMPRESSION: Patchy left lower lung opacity suggestive of pneumonia. Assessment & Plan - Diagnosis (1) Pneumonia Qualifiers: Pneumonia type: due to unspecified organism Laterality: left Lung location: lower lobe of lung Qualified Code(s): J18.9 - Pneumonia, unspecified organism Is this a current diagnosis for this admission?: Yes Plan: Start the patient on IV antibiotics nebulizer treatments (2) Chest pain Qualifiers: Chest pain type: unspecified Qualified Code(s): R07.9 - Chest pain, unspecified Is this a current diagnosis for this admission?: Yes Plan: With no significant coronary artery disease rule out any acute coronary syndromes The VQ scan is well patient is currently off the Eliquis due to the recent subdural hematoma (3) Hypertension Qualifiers: Hypertension type: essential hypertension Qualified Code(s): I10 - Essential (primary) hypertension Is this a current diagnosis for this admission?: Yes Plan: Continues to current medications (4) Type 2 diabetes mellitus Qualifiers: Chronic kidney disease stage: stage 3 (moderate) Is this a current diagnosis for this admission?: Yes Plan: Continues a sliding scales (5) Chronic kidney disease Qualifiers: Chronic kidney disease stage: stage 3 (moderate) Qualified Code(s): N18.3 - Chronic kidney disease, stage 3 (moderate) Is this a current diagnosis for this admission?: Yes Plan: Patient is currently see her Dr. Alvarado as an outpatient (6) CAD (coronary artery disease) Qualifiers: Coronary Disease-Associated Artery/Lesion type: bypass graft Associated angina: without angina Is this a current diagnosis for this admission?: Yes Plan: Consult Dr. ROMAN for further evaluated with chest pain the serial cardiac enzyme (7) Hyperlipemia Qualifiers: Hyperlipidemia type: unspecified Qualified Code(s): E78.5 - Hyperlipidemia, unspecified Is this a current diagnosis for this admission?: Yes (8) Benign prostate hyperplasia Qualifiers: Lower urinary tract symptom presence: symptoms absent Qualified Code(s): N40.0 - Benign prostatic hyperplasia without lower urinary tract symptoms Is this a current diagnosis for this admission?: Yes Plan: Continues to Flomax and finasteride (9) Respiratory failure Qualifiers: Chronicity: acute Respiratory failure complication: hypoxia Qualified Code(s): J96.01 - Acute respiratory failure with hypoxia Is this a current diagnosis for this admission?: Yes Plan: Most likely due to the pneumonia (10) Chronic a-fib Is this a current diagnosis for this admission?: Yes Plan: Currently off the Eliquis due to his recent subdural hematoma continues aspirin continues to monitor we will consult Dr. ROMAN - Time Time Spent: 50 to 70 Minutes Medications reviewed and adjusted accordingly: Yes Anticipated discharge: Home with Homehealth Within: Other - Inpatient Certification Based on my medical assessment, after consideration of the patient's comorbidities, presenting symptoms, or acuity I expect that the services needed warrant INPATIENT care.: Yes I certify that my determination is in accordance with my understanding of [employer] 's requirements for reasonable and necessary INPATIENT services [42 CFR 412.3e].: Yes Medical Necessity: Significant Comorbidiites Make Outpatient Treatment Too Risky, Need Close Monitoring Due to Risk of Patient Decompensation, Need For Continuous Telemetry Monitoring, Need for Nebulizer Therapy and Monitoring of Response, Need for IV Antibiotics 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
[2019-11-07] MEDS ORDERED: LEVOFLOXACIN 500 MG/D5W RTU 500 MG/100 ML RTUPB IV SCH (18:00)
--- NOTE | 2019-11-07 19:14 | PDOC CONSULTATION ---
Consultation-Blank Consultation: CARDIOLOGY CONSULTATION by Dr. Aminta Gudino on 11/07/2019. Patient seen at 7 PM on 11/07/2019. 60 minutes spent on this patient more than 50% of time spent in direct patient care. REASON FOR CONSULTATION: Patient with a history of coronary artery disease admitted with shortness of breath and chest pain. Assess cardiac status. CONSULT REQUESTING PHYSICIAN: Dr. Arjun Deras HISTORY OF PRESENT ILLNESS: Patient is a 83-year-old male with known history of coronary artery disease, history of myocardial infarction in the past, with no recent anginal symptoms, chronic atrial fibrillation, hypertension, diabetes mellitus, and chronic kidney disease stage III admitted with 2-day history of cough productive of yellowish sputum. He is also complained of fever chills and Reiger's. Exact temperature elevation level is not known. He also states that he has been having chest pains which is lasting few minutes and is reproduced by movements of the chest. He also has some sharp pains which increases with deep breathing especially on the left side. The pains are situated on the left side only. There is no radiation. The patient also complains of shortness of breath. He has some orthopnea since the last 2 days but no PND. He has chronic atrial fibrillation. He was on Eliquis, but about more than a month ago the patient had an accidental fall and sustained a subdural hematoma and hence his Eliquis is on hold. There is no TIA CVA symptoms. The patient denies any syncopal episodes. He denies any palpitations or rapid beating of his heart. He has no hemoptysis. His ventilation/perfusion scan shows low probability for pulmonary embolus. His CAT scan of the chest shows significant pneumonia left side. Past Medical History Cardiac Medical History: Reports: Atrial Fibrillation, Coronary Artery Disease, Myocardial Infarction - [place] X 2, history of stents in the LAD and circumflex. Hyperlipidema, Hypertension Denies: Congestive Heart Failure, Heart Murmur Pulmonary Medical History: Denies: Asthma, Bronchitis, Chronic Obstructive Pulmonary Disease (COPD), Pneumonia, Tuberculosis Neurological Medical History: Denies: Seizures Endocrine Medical History: Reports: Diabetes Mellitus Type 2 Renal/ Medical History: Reports: Chronic Kidney Disease GI Medical History: Reports: Gastroesophageal Reflux Disease, Hiatal Hernia Denies: Hepatitis Musculoskeltal Medical History: Reports: Arthritis Psychiatric Medical History: Denies: Depression Traumatic History Note: hx sub dural hematoma 09/2019 Hematology: Denies: Anemia, Hemophilia, Sickle Cell Disease Past Surgical History Past Surgical History: Reports: Cardiac Catheterization, Coronary Stent spent in the LAD and circumflex, Herniorrhaphy Denies: Pacemaker Social History Information Source: Patient Smoking Status: Never Smoker Frequency of Alcohol Use: None Hx Recreational Drug Use: No Hx Prescription Drug Abuse: No Family History Family History: Reviewed & Not Pertinent, CAD Parental Family History Reviewed: Yes Children Family History Reviewed: Yes Sibling(s) Family History Reviewed.: Yes Medication/Allergy Home Medications: Acetaminophen [Tylenol 325 mg Tablet] 650 mg PO Q6HP PRN 11/07/19 Amlodipine Besylate [Norvasc 10 mg Tablet] 10 mg PO DAILY 11/07/19 Aspirin [Adult Low Dose Aspirin EC] 81 mg PO DAILY 11/07/19 Atorvastatin Calcium [Lipitor 40 mg Tablet] 40 mg PO QHS 11/07/19 Brimonidine Tartrate [Alphagan 0.2% Oph Soln 5 ml] 1 drop OU BID 11/07/19 Donepezil HCl [Aricept] 10 mg PO QHS 11/07/19 Finasteride [Proscar 5 mg Tablet] 5 mg PO DAILY 11/07/19 Furosemide [Lasix 40 mg Tablet] 40 mg PO DAILY 11/07/19 Glimepiride [Amaryl 4 mg Tablet] 4 mg PO [id number] 11/07/19 Metoprolol Succinate [Toprol Xl 50 mg Tab.sr] 50 mg PO DAILY 11/07/19 Nateglinide [Starlix 60 mg Tablet] 60 mg PO TID 11/07/19 Whitmer-3 Fatty Acids/Fish Oil [Fish Oil 1,000 mg Capsule] 1 cap PO DAILY 11/07/19 Pantoprazole Sodium [Protonix [address] Tablet] 40 mg PO DAILY 11/07/19 Pramipexole Di-HCl [Mirapex 0.5 mg Tablet] 0.5 mg PO DAILY 11/07/19 Ranitidine HCl [Zantac] 150 mg PO DAILY 11/07/19 Tamsulosin HCl [Flomax 0.4 mg Cap.sr] 0.4 mg PO QPM 11/07/19 Timolol Maleate [Timoptic 0.5% Oph Soln 5 ml] 1 drop OU BID 11/07/19 Allergies/Adverse Reactions: adhesive tape Adverse Reaction (Intermediate, Verified 06/11/19 13:32) Pruritis Review of Systems Constitutional: PRESENT: chills, fever(s). ABSENT: headache(s), weight gain, weight loss Eyes: ABSENT: visual disturbances Ears: ABSENT: hearing changes Cardiovascular: PRESENT: chest pain, dyspnea on exertion. ABSENT: edema, orthropnea, palpitations Respiratory: PRESENT: cough, dyspnea. ABSENT: hemoptysis Gastrointestinal: ABSENT: abdominal pain, constipation, diarrhea, hematemesis, hematochezia, nausea, vomiting Genitourinary: ABSENT: dysuria, hematuria Musculoskeletal: ABSENT: joint swelling Integumentary: ABSENT: rash, wounds Neurological: ABSENT: abnormal gait, abnormal speech, confusion, dizziness, focal weakness, syncope Psychiatric: ABSENT: anxiety, depression, homidical ideation, suicidal ideation Endocrine: ABSENT: cold intolerance, heat intolerance, menstrual abnormalities, polydipsia, polyuria Hematologic/Lymphatic: ABSENT: easy bleeding, easy bruising, lymphadenopathy Current Medications Generic Name Dose Route Start Last Admin Trade Name Freq PRN Reason Stop Dose Admin Acetaminophen 650 mg 11/07/19 08:37 Tylenol 325 Mg Tablet PO 12/07/19 08:36 Q4HP PRN FOR PAIN OR TEMP Albuterol/Ipratropium 3 ml 11/07/19 08:37 Duoneb 3 Ml Ampul NEB 12/07/19 08:36 RTQ4HP PRN SHORTNESS OF BREATH Amlodipine Besylate 10 mg 11/08/19 10:00 Norvasc 10 Mg Tablet PO 12/08/19 09:59 DAILY JESSE Aspirin 81 mg 11/08/19 10:00 Ecotrin 81 Mg Ec Tablet PO 12/08/19 09:59 DAILY JESSE Atorvastatin Calcium 40 mg 11/07/19 22:00 11/07/19 21:31 Lipitor 40 Mg Tablet PO 12/07/19 21:59 40 mg QHS JESSE Administration Brimonidine Tartrate 1 drop 11/07/19 18:00 11/07/19 21:38 Alphagan 0.2% Oph Soln 5 Ml OU 12/07/19 17:59 1 drop Q12A JESSE Administration Dextrose 12.5 gm 11/07/19 08:42 Dextrose Inj 50% Syringe (25 Gm/50 Ml) IV 12/07/19 08:41 PRN PRN FOR BG 50-69 IN ALERT PATIENT Protocol Dextrose 25 gm 11/07/19 08:42 Dextrose Inj 50% Syringe (25 Gm/50 Ml) IV 12/07/19 08:41 PRN PRN PER PROTOCOL Protocol Donepezil HCl 10 mg 11/07/19 22:00 11/07/19 21:31 Aricept 5 Mg Tablet PO 12/07/19 21:59 10 mg QHS JESSE Administration Famotidine 20 mg 11/07/19 10:00 11/07/19 21:31 Pepcid 20 Mg Tablet PO 12/07/19 09:59 20 mg Q12 JESSE Administration Finasteride 5 mg 11/08/19 10:00 Proscar 5 Mg Tablet PO 12/08/19 09:59 DAILY [facility] Furosemide 40 mg 11/08/19 10:00 Lasix 40 Mg Tablet PO 12/08/19 09:59 DAILY [facility] Glucagon 1 mg 11/07/19 08:42 Glucagen Inj 1 Mg Vial IM 12/07/19 08:41 PRN PRN Evaluate for BG < 70 Protocol Glucose 15 gm 11/07/19 08:42 Glutose 40% Gel 15 Gm Tube PO 12/07/19 08:41 PRN PRN FOR BG 50-69 IN ALERT PATIENT Protocol Glucose 30 gm 11/07/19 08:42 Glutose 40% Gel 15 Gm Tube PO 12/07/19 08:41 PRN PRN FOR BG < 50 IN ALERT PATIENT Protocol Cefepime HCl 1 gm in 50 mls @ 100 mls/hr 11/07/19 10:00 11/07/19 21:32 Maxipime Rtu 1 Gm/D5w 50 Ml Premix Bag IV 11/14/19 09:59 100 mls/hr Q12 JESSE Administration Levofloxacin/Dextrose 500 mg in 100 mls @ 100 mls/hr 11/07/19 21:00 Levaquin Rtu 500mg/D5w 100 Ml Premix IV 11/14/19 20:59 DAILY@2100 [facility] Insulin Human Lispro 0 - 12 unit 11/07/19 11:00 11/07/19 21:40 Humalog Insulin 100 Unit/1 Ml 3 Ml Vial SUBCUT 12/07/19 10:59 Not Given ACHS [facility] Protocol Metoprolol Succinate 50 mg 11/08/19 10:00 Toprol Xl 50 Mg Tab.Sr PO 12/08/19 09:59 DAILY JESSE Nateglinide 60 mg 11/07/19 16:00 11/07/19 21:31 Starlix 60 Mg Tablet PO 12/07/19 15:59 60 mg AC JESSE Administration Pantoprazole Sodium 40 mg 11/08/19 10:[address] Tablet PO 12/08/19 09:59 DAILY JESSE Pramipexole Dihydrochloride 0.5 mg 11/08/19 10:00 Mirapex 0.5 Mg Tablet PO 12/08/19 09:59 DAILY JESSE Tamsulosin HCl 0.4 mg 11/07/19 18:00 11/07/19 19:56 Flomax 0.4 Mg Cap.Sr PO 12/07/19 17:59 0.4 mg QPM JESSE Administration Timolol Maleate 1 drop 11/07/19 22:00 Timoptic 0.5% Oph Soln 5 Ml OU 12/07/19 21:59 Q12 JESSE Discontinued Medications Generic Name Dose Route Start Last Admin Trade Name Freq PRN Reason Stop Dose Admin Acetaminophen 975 mg 11/07/19 07:42 11/07/19 08:01 Tylenol 325 Mg Tablet PO 11/07/19 07:43 975 mg NOW ONE Administration Acetaminophen 650 mg 11/07/19 12:13 Tylenol 325 Mg Tablet PO 12/07/19 12:12 Q6HP PRN FOR PAIN Azithromycin 500 mg 11/07/19 07:14 11/07/19 07:31 Zithromax 250 Mg Tablet PO 11/07/19 07:15 500 mg NOW ONE Administration Azithromycin 250 mg 11/07/19 10:00 11/07/19 09:37 Zithromax 250 Mg Tablet PO 11/14/19 09:59 250 mg DAILY JESSE Administration Sodium Chloride 500 mls @ 0 mls/hr 11/07/19 07:41 11/07/19 08:38 Nacl 0.9% 1000 Ml Iv Soln IV 11/07/19 07:42 Infused BOLUS ONE Infusion Wide Open Levofloxacin/Dextrose 500 mg in 100 mls @ 100 mls/hr 11/07/19 18:00 Levaquin Rtu 500mg/D5w 100 Ml Premix IV 11/14/19 17:59 QPM JESSE PHYSICAL EXAMINATION: The patient is mildly obese. At present in no acute distress. Selected Entries 11/07/19 11/07/19 11/07/19 18:02 18:30 18:36 Temperature 100.3 F Temperature Oral Source Pulse Rate 75 Pulse Rate [ 78 Left Finger] Respiratory 20 Rate Blood Pressure 147/78 H Blood Pressure 168/72 H [Left Upper Arm ] Blood Pressure 101 Mean Blood Pressure 104 Mean [Left Upper Arm] Blood Pressure Supine Position [Left Upper Arm] O2 Sat by Pulse 96 93 Oximetry Fraction of Inspired Oxygen (FIO2) Oxygen Flow 3 Rate 11/07/19 20:22 Temperature Temperature Source Pulse Rate Pulse Rate [ Left Finger] Respiratory Rate Blood Pressure Blood Pressure [Left Upper Arm ] Blood Pressure Mean Blood Pressure Mean [Left Upper Arm] Blood Pressure Position [Left Upper Arm] O2 Sat by Pulse Oximetry Fraction of 40 Inspired Oxygen (FIO2) Oxygen Flow Rate HEAD: Atraumatic normocephalic. EYES: Pupils are equal round regular reactive to light and accommodation. Extraocular movements are normal. There is no conjunctival pallor. There is no scleral icterus. EARS: Tympanic membranes are intact. External auditory canals are clear. THROAT: There is no redness of the oropharynx. There is no exudates. NOSE: There is no deviated nasal septum. There is no inflammation nasal mucous membrane. MOUTH:. Mucous membranes of mouth are moist. Tongue is moist. There is no ulcers. There is no bleeding from the gums. SKIN: There is no skin rashes. There is no skin lesions. There is no particular ecchymosis. NECK: Is supple. There is no JVD. Carotids are equal there is no bruit. There is no lymphadenopathy. There is no goiter. There is no accessory muscle respiration use. Trachea central. LUNGS: There is tubular breath sounds in the left upper left mid and lower lobe. With egophony heard here. There are also a few dry crackles. There is no rales of CHF. HEART: S1-S2 is heard. There is no S3 gallop. There is no S4 gallop. S1 is of variable intensity. There is systolic murmur left sternal border and the apex t here is no rub. ABDOMEN: Is soft. Nontender. There is no paraspinal megaly. Bowel sounds are well heard. EXTREMITIES: Femorals are well felt. There is no femoral bruits. Leg pulses are well felt. There is no pedal edema. There is no DVT or cellulitis. There is no calf tenderness. There is no cyanosis or clubbing. BLIND EYELETTER: The patient is conscious awake alert oriented x3 with no focal deficits. PSYCHIATRIC: The patient judgment insight are intact his affect is normal. Labs- Entire Visit 11/07/19 11/07/19 11/07/19 06:35 06:35 06:35 WBC 9.4 RBC 4.71 Hgb 14.7 Hct 44.2 MCV 94 MCH 31.3 MCHC 33.4 RDW 14.1 H Plt Count 235 Lymph % (Auto) 9.5 L Bull[place] % (Auto) 6.4 Eos % (Auto) 1.5 Baso % (Auto) 0.5 Absolute Neuts (auto) 7.7 Absolute Lymphs (auto) 0.9 Absolute Monos (auto) 0.6 Absolute Eos (auto) 0.1 Absolute Basos (auto) 0.0 Seg Neutrophils % 82.1 H VBG pH VBG pCO2 VBG HCO3 VBG Base Excess Sodium 139.2 Potassium 4.4 Chloride 102 Carbon Dioxide 23 Anion Gap 14 BUN 23 H Creatinine 1.60 H Est GFR ( Amer) 50 L Est GFR (MDRD) Non-Af 41 L Glucose 201 H POC Glucose Lactic Acid (Sepsis) Calcium 9.6 Total Bilirubin 1.2 Direct Bilirubin 0.4 Neonat Total Bilirubin Not Reportable Neonat Direct Bilirubin Not Reportable Neonat Indirect Bili Not Reportable AST 24 ALT 14 Alkaline Phosphatase 117 Creatine Kinase CK-MB (CK-2) Troponin I < 0.012 NT-Pro-B Natriuret Pep 2820 H Total Protein 8.3 H Albumin 4.5 Influenza A (Rapid) Influenza B (Rapid) 11/07/19 11/07/19 11/07/19 06:55 06:55 06:59 WBC RBC Hgb Hct MCV MCH MCHC RDW Plt Count Lymph % (Auto) [place] % (Auto) Eos % (Auto) Baso % (Auto) Absolute Neuts (auto) Absolute Lymphs (auto) Absolute Monos (auto) Absolute Eos (auto) Absolute Basos (auto) Seg Neutrophils % VBG pH 7.36 VBG pCO2 41.2 VBG HCO3 23.0 VBG Base Excess -2.3 Sodium Potassium Chloride Carbon Dioxide Anion Gap BUN Creatinine Est GFR ( Amer) Est GFR (MDRD) Non-Af Glucose POC Glucose 160 H Lactic Acid (Sepsis) 1.6 Calcium Total Bilirubin Direct Bilirubin Neonat Total Bilirubin Neonat Direct Bilirubin Neonat Indirect Bili AST ALT Alkaline Phosphatase Creatine Kinase CK-MB (CK-2) Troponin I NT-Pro-B Natriuret Pep Total Protein Albumin Influenza A (Rapid) Influenza B (Rapid) 11/07/19 11/07/19 11/07/19 07:20 09:20 11:07 WBC RBC Hgb Hct MCV MCH MCHC RDW Plt Count Lymph % (Auto) [place] % (Auto) Eos % (Auto) Baso % (Auto) Absolute Neuts (auto) Absolute Lymphs (auto) Absolute Monos (auto) Absolute Eos (auto) Absolute Basos (auto) Seg Neutrophils % VBG pH VBG pCO2 VBG HCO3 VBG Base Excess Sodium Potassium Chloride Carbon Dioxide Anion Gap BUN Creatinine Est GFR ( Amer) Est GFR (MDRD) Non-Af Glucose POC Glucose 189 H Lactic Acid (Sepsis) 1.0 Calcium Total Bilirubin Direct Bilirubin Neonat Total Bilirubin Neonat Direct Bilirubin Neonat Indirect Bili AST ALT Alkaline Phosphatase Creatine Kinase CK-MB (CK-2) Troponin I NT-Pro-B Natriuret Pep Total Protein Albumin Influenza A (Rapid) NEGATIVE Influenza B (Rapid) NEGATIVE 11/07/19 11/07/19 11/07/19 11:07 11:07 12:55 WBC RBC Hgb Hct MCV MCH MCHC RDW Plt Count Lymph % (Auto) [place] % (Auto) Eos % (Auto) Baso % (Auto) Absolute Neuts (auto) Absolute Lymphs (auto) Absolute Monos (auto) Absolute Eos (auto) Absolute Basos (auto) Seg Neutrophils % VBG pH VBG pCO2 VBG HCO3 VBG Base Excess Sodium 137.4 Potassium 3.6 Chloride 104 Carbon Dioxide 23 Anion Gap 10 BUN 21 H Creatinine 1.46 H Est GFR ( Amer) 56 L Est GFR (MDRD) Non-Af 46 L Glucose 192 H POC Glucose 179 H Lactic Acid (Sepsis) Calcium 8.7 Total Bilirubin Direct Bilirubin Neonat Total Bilirubin Neonat Direct Bilirubin Neonat Indirect Bili AST ALT Alkaline Phosphatase Creatine Kinase 69 CK-MB (CK-2) 0.51 Troponin I 0.015 NT-Pro-B Natriuret Pep Total Protein Albumin Influenza A (Rapid) Influenza B (Rapid) 11/07/19 11/07/19 11/07/19 13:36 19:03 19:03 WBC RBC Hgb Hct MCV MCH MCHC RDW Plt Count Lymph % (Auto) [place] % (Auto) Eos % (Auto) Baso % (Auto) Absolute Neuts (auto) Absolute Lymphs (auto) Absolute Monos (auto) Absolute Eos (auto) Absolute Basos (auto) Seg Neutrophils % VBG pH VBG pCO2 VBG HCO3 VBG Base Excess Sodium Potassium Chloride Carbon Dioxide Anion Gap BUN Creatinine Est GFR ( Amer) Est GFR (MDRD) Non-Af Glucose POC Glucose Lactic Acid (Sepsis) 1.9 Calcium Total Bilirubin Direct Bilirubin Neonat Total Bilirubin Neonat Direct Bilirubin Neonat Indirect Bili AST ALT Alkaline Phosphatase Creatine Kinase 86 CK-MB (CK-2) 0.59 Troponin I 0.019 NT-Pro-B Natriuret Pep Total Protein Albumin Influenza A (Rapid) Influenza B (Rapid) 11/07/19 21:24 WBC RBC Hgb Hct MCV MCH MCHC RDW Plt Count Lymph % (Auto) [place] % (Auto) Eos % (Auto) Baso % (Auto) Absolute Neuts (auto) Absolute Lymphs (auto) Absolute Monos (auto) Absolute Eos (auto) Absolute Basos (auto) Seg Neutrophils % VBG pH VBG pCO2 VBG HCO3 VBG Base Excess Sodium Potassium Chloride Carbon Dioxide Anion Gap BUN Creatinine Est GFR ( Amer) Est GFR (MDRD) Non-Af Glucose POC Glucose 210 H Lactic Acid (Sepsis) Calcium Total Bilirubin Direct Bilirubin Neonat Total Bilirubin Neonat Direct Bilirubin Neonat Indirect Bili AST ALT Alkaline Phosphatase Creatine Kinase CK-MB (CK-2) Troponin I NT-Pro-B Natriuret Pep Total Protein Albumin Influenza A (Rapid) Influenza B (Rapid) Chest CT 11/07/19 00:00 IMPRESSION: Patchy area of consolidation in the left lower lobe with air bronchograms and scattered centrilobular nodular opacities in the left upper and superior portion of the left lower lobe. Clinical correlation to exclude a multifocal infection is recommended. Lung Scan-VQ NM 11/07/19 00:00 IMPRESSION: Low probability for pulmonary embolus. Chest X-Ray 11/07/19 06:27 IMPRESSION: Patchy left lower lung opacity suggestive of pneumonia. ECHOCARDIOGRAM done January 27, 2019.: Left ventricle is of normal size. There is no LVH. Normal global wall motion and LV ejection fraction normal 65%. Normal diastolic filling pattern. Left atrial cavity is moderately dilated. There is mild aortic regurgitation with no aortic stenosis. There is no LVOT obstr uction. There is mild to moderate mitral regurgitation. There is mild mitral annular calcification. There is no mitral stenosis. There is no mitral valve prolapse. There is no tricuspid stenosis. There is mild tricuspid regurgitation. Right ventricle systolic pressure was 31 mmHg. There is no pericardial effusion. In depth discussions done with the patient and patient's regarding the patient's current clinical status, and diagnosis. IMPRESSION/RECOMMENDATION: 1. Chest pain: Noncardiac. Secondary to musculoskeletal and secondary to his pneumonia. No evidence of acute coronary syndrome. The patient EKG shows no acute changes. And the patient's troponin is negative. 2. Multifocal left lung pneumonia: Continue antibiotics. 3. History of recent subdural hematoma after accidental fall. . Chronic atrial fibrillation: At present ventricular rate well controlled continue current medications. 5. Coronary artery disease: Prior history of myocardial infarction. No anginal symptoms in the long time. History of stents in the LAD and circumflex. 6. Hypertension: Blood pressure slightly elevated most likely secondary to his acute infectious process and discomfort due to his pneumonia. 7. Diabetes mellitus. Type II [id number] continue antidiabetic medication. 8. Chronic kidney disease stage III: Avoid nephrotoxic drugs. Medications reviewed. Management plan discussed along with the medical regimen with Dr. Deras medical decision making is of high complexity. 60 minutes spent as patient more than 50% of time spent in direct patient care will follow.
[2019-11-07 19:50] LABS: CREATINE KINASE MB 0.59 ng/mL (<4.55); TROPONIN I 0.019 ng/mL
[2019-11-07] MEDS: TAMSULOSIN HCL 0.4 MG CAP.SR.24H PO SCH (19:56)
[2019-11-07] MEDS: ATORVASTATIN CALCIUM 40 MG TABLET PO SCH (21:31)
[2019-11-07] MEDS: DONEPEZIL HCL 5 MG TABLET PO SCH (21:31)
[2019-11-07] MEDS: NATEGLINIDE 60 MG TABLET PO SCH (21:31)
[2019-11-07] MEDS: BRIMONIDINE TARTRATE 0.2% OPH SOLN 5 ML OU SCH (21:38)
--- NOTE | 2019-11-07 21:46 | EKG REPORT ---
SEVERITY:- ABNORMAL ECG - ATRIAL FIBRILLATION, V-RATE 69-110 : Confirmed by: Natalie Millard 07-Nov-2019 21:45:31
[2019-11-07] MEDS ORDERED: (PENDING PHARMACY ID) (Donepezil Hcl [Aricept] 10 MG) PO SCH (22:00)
[2019-11-07] MEDS ORDERED: TIMOLOL MALEATE 0.5% OPH SOLN 5 ML ONE (22:14)
[2019-11-07] MEDS: TIMOLOL MALEATE 0.5% OPH SOLN 5 ML OU SCH (22:38)
[2019-11-07] MEDS: LEVOFLOXACIN 500 MG/D5W RTU 500 MG/100 ML RTUPB IV SCH (22:41)
[2019-11-08 01:19] LABS: CREATINE KINASE MB 0.53 ng/mL (<4.55); TROPONIN I 0.029 ng/mL
[2019-11-08] MEDS: BRIMONIDINE TARTRATE 0.2% OPH SOLN 5 ML OU SCH ×2 (08:24→17:10)
[2019-11-08] MEDS: NATEGLINIDE 60 MG TABLET PO SCH ×3 (08:28→16:56)
[2019-11-08] MEDS: INSULIN LISPRO 100 UNIT/ML 3 ML VIAL SUBCUT SCH ×4 (08:28→22:31)
[2019-11-08 08:41] LABS: ABSOLUTE EOSINOPHILS # (AUTO) 0.1 10^3/uL (0.0-0.6); ABSOLUTE LYMPHOCYTES (AUTO) 0.9 10^3/uL (0.5-4.7); ABSOLUTE MONOCYTES (AUTO) 0.6 10^3/uL (0.1-1.4); ABSOLUTE NEUT (AUTO) 6.5 10^3/uL (1.7-8.2); BASOPHILS % (AUTO) 0.2 % (0-2); HEMATOCRIT 38.3 % (37.9-51.0); HEMOGLOBIN 12.8 g/dL (13.5-17.0); LYMPHOCYTES % (AUTO) 10.7 % (13-45); MEAN CORPUSCULAR HEMOGLOBIN 31.3 pg (27.0-33.4); MEAN CORPUSCULAR HGB CONC 33.4 g/dL (32.0-36.0); MEAN CORPUSCULAR VOLUME 94 fl (80-97); MONOCYTES % (AUTO) 7.7 % (3-13); PLATELET COUNT 206 10^3/uL (150-450); RED BLOOD COUNT 4.08 10^6/uL (4.35-5.55); RED CELL DISTRIBUTION WIDTH 14.3 % (11.5-14.0); SEGMENTED NEUTROPHILS % (AUTO) 80.4 % (42-78); TOTAL CELLS COUNTED % (AUTO) 100 %; WHITE BLOOD COUNT 8.1 10^3/uL (4.0-10.5)
[2019-11-08 09:22] LABS: ANION GAP 9 (5-19); BLOOD UREA NITROGEN 21 mg/dL (7-20); CALCIUM 8.9 mg/dL (8.4-10.2); CARBON DIOXIDE 24 mmol/L (22-30); CHLORIDE 105 mmol/L (98-107); GLUCOSE 84 mg/dL (75-110); POTASSIUM 3.6 mmol/L (3.6-5.0)
[2019-11-08] MEDS: CEFEPIME 1 GM/D5W RTU 1 GM/50 ML RTUPB IV SCH ×2 (10:12→22:11)
[2019-11-08] MEDS: ASPIRIN 81 MG TABLET, ENT COATED PO SCH (10:12)
[2019-11-08] MEDS: FUROSEMIDE 40 MG TABLET PO SCH (10:12)
[2019-11-08] MEDS: PANTOPRAZOLE SODIUM 40 MG TABLET.DR PO SCH (10:13)
[2019-11-08] MEDS: METOPROLOL SUCCINATE 50 MG TAB.SR.24H PO SCH (10:13)
[2019-11-08] MEDS: FINASTERIDE 5 MG TABLET PO SCH (10:13)
[2019-11-08] MEDS: FAMOTIDINE 20 MG TABLET PO SCH ×2 (10:13→22:25)
[2019-11-08] MEDS: TIMOLOL MALEATE 0.5% OPH SOLN 5 ML OU SCH (10:13)
[2019-11-08] MEDS: AMLODIPINE BESYLATE 10 MG TABLET PO SCH (10:13)
[2019-11-08] MEDS: PRAMIPEXOLE DI-HCL 0.5 MG TABLET PO SCH (10:14)
--- NOTE | 2019-11-08 11:16 | PDOC PROGRESS REPORT ---
Subjective Progress Note for:: 11/08/19 Subjective:: Patient is currently doing better Denied any chest pain no short of breath Currently on nasal cannula comfortable laying in the bed Since seen by the cardiology all stable Family on the bedside Blood Work is all stable Reason For Visit: PNEMONIA Physical Exam Vital Signs: Temp Pulse Resp BP Pulse Ox 97.6 F 63 21 H 142/68 H 96 11/08/19 07:32 11/08/19 07:32 11/08/19 07:32 11/08/19 07:32 11/08/19 07:32 Intake & Output 11/07/19 11/08/19 11/09/19 06:59 06:59 06:59 Intake Total 700 Balance 700 Weight 96 kg 95.4 kg General appearance: PRESENT: no acute distress, well-developed, well-nourished Head exam: PRESENT: atraumatic, normocephalic Eye exam: PRESENT: conjunctiva pink, EOMI, PERRLA. ABSENT: scleral icterus Ear exam: PRESENT: normal external ear exam Mouth exam: PRESENT: moist, tongue midline Neck exam: PRESENT: full ROM. ABSENT: carotid bruit, JVD, lymphadenopathy, t hyromegaly Respiratory exam: PRESENT: clear to auscultation [place] Cardiovascular exam: PRESENT: RRR. ABSENT: diastolic murmur, rubs, systolic murmur Pulses: PRESENT: normal dorsalis pedis pul, +2 pedal pulses bilateral Vascular exam: PRESENT: normal capillary refill GI/Abdominal exam: PRESENT: normal bowel sounds, soft. ABSENT: distended, guarding, mass, organolmegaly, rebound, tenderness Rectal exam: PRESENT: deferred Neurological exam: PRESENT: alert, awake, oriented to person, oriented to place, oriented to time, oriented to situation, CN II-XII grossly intact. ABSENT: motor sensory deficit Psychiatric exam: PRESENT: appropriate affect, normal mood. ABSENT: homicidal ideation, suicidal ideation Skin exam: PRESENT: dry, intact, warm. ABSENT: cyanosis, rash Results Laboratory Results: 11/08/19 07:39 11/08/19 07:39 11/07/19 11/08/19 11/08/19 11:07 06:40 07:39 WBC 8.1 RBC 4.08 L Hgb 12.8 L Hct 38.3 MCV 94 MCH 31.3 MCHC 33.4 RDW 14.3 H Plt Count 206 Seg Neutrophils % 80.4 H Carbonic Acid Cancelled HCO3/H2CO3 Ratio Cancelled ABG pH Cancelled ABG pCO2 Cancelled ABG pO2 Cancelled ABG HCO3 Cancelled ABG O2 Saturation Cancelled ABG Base Excess Cancelled FiO2 Cancelled Sodium 137.4 Potassium 3.6 Chloride 104 Carbon Dioxide 23 Anion Gap 10 BUN 21 H Creatinine 1.46 H Est GFR ( Amer) 56 L Glucose 192 H Calcium 8.7 Magnesium 11/08/19 11/08/19 07:39 07:39 WBC RBC Hgb Hct MCV MCH MCHC RDW Plt Count Seg Neutrophils % Carbonic Acid HCO3/H2CO3 Ratio ABG pH ABG pCO2 ABG pO2 ABG HCO3 ABG O2 Saturation ABG Base Excess FiO2 Sodium 138.2 Potassium 3.6 Chloride 105 Carbon Dioxide 24 Anion Gap 9 BUN 21 H Creatinine 1.38 H Est GFR ( Amer) 59 L Glucose 84 Calcium 8.9 Magnesium 2.0 11/07/19 06:55 Blood Blood Culture (PCR) - Final Streptococcus Species 11/07/19 11/07/19 11/07/19 06:35 11:07 11:07 Creatine Kinase 69 CK-MB (CK-2) 0.51 Troponin I < 0.012 0.015 NT-Pro-B Natriuret Pep 2820 H 11/07/19 11/07/19 11/08/19 19:03 19:03 00:38 Creatine Kinase 86 79 CK-MB (CK-2) 0.59 Troponin I 0.019 NT-Pro-B Natriuret Pep 11/08/19 11/08/19 00:38 07:39 Creatine Kinase CK-MB (CK-2) 0.53 Troponin I 0.029 NT-Pro-B Natriuret Pep 6210 H Impressions: Chest CT 11/07/19 00:00 IMPRESSION: Patchy area of consolidation in the left lower lobe with air bronchograms and scattered centrilobular nodular opacities in the left upper and superior portion of the left lower lobe. Clinical correlation to exclude a multifocal infection is recommended. Lung Scan-VQ NM 11/07/19 00:00 IMPRESSION: Low probability for pulmonary embolus. Chest X-Ray 11/07/19 06:27 IMPRESSION: Patchy left lower lung opacity suggestive of pneumonia. Assessment & Plan - Diagnosis (1) Pneumonia Qualifiers: Pneumonia type: due to unspecified organism Laterality: left Lung location: lower lobe of lung Qualified Code(s): J18.9 - Pneumonia, unspecified organism Is this a current diagnosis for this admission?: Yes Plan: Continues IV cefepime and Levaquin (2) Chest pain Qualifiers: Chest pain type: unspecified Qualified Code(s): R07.9 - Chest pain, unspecified Is this a current diagnosis for this admission?: Yes Plan: Most likely noncardiac currently all stable denied any complaints (3) Hypertension Qualifiers: Hypertension type: essential hypertension Qualified Code(s): I10 - Essential (primary) hypertension Is this a current diagnosis for this admission?: Yes Plan: Continues to current medications (4) Type 2 diabetes mellitus Qualifiers: Chronic kidney disease stage: stage 3 (moderate) Is this a current diagnosis for this admission?: Yes Plan: Continues a sliding scales (5) Chronic kidney disease Qualifiers: Chronic kidney disease stage: stage 3 (moderate) Qualified Code(s): N18.3 - Chronic kidney disease, stage 3 (moderate) Is this a current diagnosis for this admission?: Yes Plan: Patient is currently see her Dr. Alvarado as an outpatient (6) CAD (coronary artery disease) Qualifiers: Coronary Disease-Associated Artery/Lesion type: bypass graft Associated angina: without angina Is this a current diagnosis for this admission?: Yes Plan: Consult Dr. ROMAN for further evaluated with chest pain the serial cardiac enzyme (7) Hyperlipemia Qualifiers: Hyperlipidemia type: unspecified Qualified Code(s): E78.5 - Hyperlipidemia, unspecified Is this a current diagnosis for this admission?: Yes (8) Benign prostate hyperplasia Qualifiers: Lower urinary tract symptom presence: symptoms absent Qualified Code(s): N40.0 - Benign prostatic hyperplasia without lower urinary tract symptoms Is this a current diagnosis for this admission?: Yes Plan: Continues to Flomax and finasteride (9) Respiratory failure Qualifiers: Chronicity: acute Respiratory failure complication: hypoxia Qualified Code(s): J96.01 - Acute respiratory failure with hypoxia Is this a current diagnosis for this admission?: Yes Plan: Currently back to the nasal cannula all stable (10) Chronic a-fib Is this a current diagnosis for this admission?: Yes Plan: Currently off the Eliquis due to his recent subdural hematoma continues aspirin continues to monitor we will consult Dr. ROMAN - Time Time Spent with patient: 25-34 minutes Level of Care: TELE Medications reviewed and adjusted accordingly: Yes Anticipated discharge: Home with Homehealth Within: Other - Plan Summary Plan Summary: Continues to IV antibiotic dis Cussed with the patient family at bedside
[2019-11-08] MEDS ORDERED: INFLUENZA QUAD (6MOS+) 2019-20 VAC 0.5 ML SYR IM ONE (14:14)
[2019-11-08] MEDS: TAMSULOSIN HCL 0.4 MG CAP.SR.24H PO SCH (17:09)
--- NOTE | 2019-11-08 18:34 | Progress Note ---
Provider Note Provider Note: CARDIOLOGY PROGRESS NOTE by Dr. Aminta Gudino on 11/08/2019. Subjective: The patient has no further noncardiac chest pain. He has no anginal symptoms. He states his shortness of breath is better. His cough is also improved. He has no PND orthopnea. The patient continues to be in atrial fibrillation with controlled ventricular response. There is no TIA CVA symptoms. I am still not able to get hold of the neurosurgeon to get his opinion about the safety of restarting the patient on Eliquis. There is no ventricular arrhythmia seen on the monitor. PHYSICAL EXAMINATION: The patient is mildly obese. In no acute distress. He is well-groomed Selected Entries 11/08/19 15:25 Temperature 98.2 F Temperature Oral Source Pulse Rate 56 L Respiratory 17 Rate Blood Pressure 149/78 H Blood Pressure 101 Mean BP Location Right Arm BP Position Supine O2 Sat by Pulse 97 Oximetry Oxygen Flow 2.50 Rate Oxygen Delivery Nasal Cannula Method HEAD: Atraumatic normocephalic. EYES: Pupils are equal round regular reactive to light and accommodation. Extraocular movements are normal. There is no conjunctival pallor. There is no scleral icterus. EARS: Tympanic membranes are intact. External auditory canals are clear. THROAT: There is no redness of the oropharynx. There is no exudates. NOSE: There is no deviated nasal septum. There is no inflammation nasal mucous membrane. MOUTH:. Mucous membranes of mouth are moist. Tongue is moist. There is no ulcers. There is no bleeding from the gums. SKIN: There is no skin rashes. There is no skin lesions. There is no particular ecchymosis. NECK: Is supple. There is no JVD. Carotids are equal there is no bruit. There is no lymphadenopathy. There is no goiter. There is no accessory muscle respiration use. Trachea central. LUNGS: There is tubular breath sounds in the left upper left mid and lower lobe. With egophony heard here. There are also a few dry crackles. There is no rales of CHF. HEART: S1-S2 is heard. There is no S3 gallop. There is no S4 gallop. S1 is of variable intensity. There is systolic murmur left sternal border and the apex there is no rub. ABDOMEN: Is soft. Nontender. There is no paraspinal megaly. Bowel sounds are well heard. EXTREMITIES: Femorals are well felt. There is no femoral bruits. Leg pulses are well felt. There is no pedal edema. There is no DVT or cellulitis. There is no calf tenderness. There is no cyanosis or clubbing. 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 PSYCHIATRIC: The patient judgment insight are intact his affect is normal. Labs- All tests 24 hr 11/07/19 11/08/19 11/08/19 18:33 00:38 00:38 WBC RBC Hgb Hct MCV MCH MCHC RDW Plt Count Lymph % (Auto) [place] % (Auto) Eos % (Auto) Baso % (Auto) Absolute Neuts (auto) Absolute Lymphs (auto) Absolute Monos (auto) Absolute Eos (auto) Absolute Basos (auto) Seg Neutrophils % Carbonic Acid HCO3/H2CO3 Ratio ABG pH ABG pCO2 ABG pO2 ABG HCO3 ABG Total CO2 ABG O2 Saturation ABG Base Excess FiO2 Sodium Potassium Chloride Carbon Dioxide Anion Gap BUN Creatinine Est GFR ( Amer) Est GFR (MDRD) Non-Af Glucose POC Glucose 182 H Calcium Magnesium Creatine Kinase 79 CK-MB (CK-2) 0.53 Troponin I 0.029 NT-Pro-B Natriuret Pep 11/08/19 11/08/19 11/08/19 06:40 07:07 07:39 WBC 8.1 RBC 4.08 L Hgb 12.8 L Hct 38.3 MCV 94 MCH 31.3 MCHC 33.4 RDW 14.3 H Plt Count 206 Lymph % (Auto) 10.7 L [place] % (Auto) 7.7 Eos % (Auto) 1.0 Baso % (Auto) 0.2 Absolute Neuts (auto) 6.5 Absolute Lymphs (auto) 0.9 Absolute Monos (auto) 0.6 Absolute Eos (auto) 0.1 Absolute Basos (auto) 0.0 Seg Neutrophils % 80.4 H Carbonic Acid Cancelled HCO3/H2CO3 Ratio Cancelled ABG pH Cancelled ABG pCO2 Cancelled ABG pO2 Cancelled ABG HCO3 Cancelled ABG Total CO2 Cancelled ABG O2 Saturation Cancelled ABG Base Excess Cancelled FiO2 Cancelled Sodium Potassium Chloride Carbon Dioxide Anion Gap BUN Creatinine Est GFR ( Amer) Est GFR (MDRD) Non-Af Glucose POC Glucose 83 Calcium Magnesium Creatine Kinase CK-MB (CK-2) Troponin I NT-Pro-B Natriuret Pep 11/08/19 11/08/19 11/08/19 07:39 07:39 07:39 WBC RBC Hgb Hct MCV MCH MCHC RDW Plt Count Lymph % (Auto) [place] % (Auto) Eos % (Auto) Baso % (Auto) Absolute Neuts (auto) Absolute Lymphs (auto) Absolute Monos (auto) Absolute Eos (auto) Absolute Basos (auto) Seg Neutrophils % Carbonic Acid HCO3/H2CO3 Ratio ABG pH ABG pCO2 ABG pO2 ABG HCO3 ABG Total CO2 ABG O2 Saturation ABG Base Excess FiO2 Sodium 138.2 Potassium 3.6 Chloride 105 Carbon Dioxide 24 Anion Gap 9 BUN 21 H Creatinine 1.38 H Est GFR ( Amer) 59 L Est GFR (MDRD) Non-Af 49 L Glucose 84 POC Glucose Calcium 8.9 Magnesium 2.0 Creatine Kinase CK-MB (CK-2) Troponin I NT-Pro-B Natriuret Pep 6210 H 11/08/19 11/08/19 11/08/19 11:12 15:24 21:29 WBC RBC Hgb Hct MCV MCH MCHC RDW Plt Count Lymph % (Auto) [place] % (Auto) Eos % (Auto) Baso % (Auto) Absolute Neuts (auto) Absolute Lymphs (auto) Absolute Monos (auto) Absolute Eos (auto) Absolute Basos (auto) Seg Neutrophils % Carbonic Acid HCO3/H2CO3 Ratio ABG pH ABG pCO2 ABG pO2 ABG HCO3 ABG Total CO2 ABG O2 Saturation ABG Base Excess FiO2 Sodium Potassium Chloride Carbon Dioxide Anion Gap BUN Creatinine Est GFR ( Amer) Est GFR (MDRD) Non-Af Glucose POC Glucose 169 H 221 H 228 H Calcium Magnesium Creatine Kinase CK-MB (CK-2) Troponin I NT-Pro-B Natriuret Pep Chest CT 11/07/19 00:00 IMPRESSION: Patchy area of consolidation in the left lower lobe with air bronchograms and scattered centrilobular nodular opacities in the left upper and superior portion of the left lower lobe. Clinical correlation to exclude a multifocal infection is recommended. Lung Scan-VQ NM 11/07/19 00:00 IMPRESSION: Low probability for pulmonary embolus. Chest X-Ray 11/07/19 06:27 IMPRESSION: Patchy left lower lung opacity suggestive of pneumonia. IMPRESSION/RECOMMENDATION: 1. Chest pain: Noncardiac. Secondary to musculoskeletal and secondary to his pneumonia. No evidence of acute coronary syndrome. The patient EKG shows no acute changes. And the patient's troponin is negative. 2. Multifocal left lung pneumonia: Continue antibiotics. 3. History of recent subdural hematoma after accidental fall. . Chronic atrial fibrillation: At present ventricular rate well controlled continue current medications. 5. Coronary artery disease: Prior history of myocardial infarction. No anginal symptoms in the long time. History of stents in the LAD and circumflex. 6. Hypertension: Blood pressure slightly elevated most likely secondary to his acute infectious process and discomfort due to his pneumonia. 7. Diabetes mellitus. Type II [id number] continue antidiabetic medication. 8. Chronic kidney disease stage III: Avoid nephrotoxic drugs. Medications reviewed. Medical regimen and management plan discussed with the attending physician Dr. Deras. Medical decision making is of moderate complexity. 40 minutes spent on this patient with more than 50% of time spent in direct patient care. Will follow
[2019-11-08] MEDS: LEVOFLOXACIN 500 MG/D5W RTU 500 MG/100 ML RTUPB IV SCH (20:29)
[2019-11-08] MEDS: DONEPEZIL HCL 5 MG TABLET PO SCH (22:25)
[2019-11-08] MEDS: ATORVASTATIN CALCIUM 40 MG TABLET PO SCH (22:25)
[2019-11-09 02:07] LABS: C DIFFICILE GDH POSITIVE (NEGATIVE)
[2019-11-09 06:36] LABS: ABSOLUTE EOSINOPHILS # (AUTO) 0.2 10^3/uL (0.0-0.6); ABSOLUTE LYMPHOCYTES (AUTO) 1.1 10^3/uL (0.5-4.7); ABSOLUTE MONOCYTES (AUTO) 0.6 10^3/uL (0.1-1.4); ABSOLUTE NEUT (AUTO) 4.5 10^3/uL (1.7-8.2); BASOPHILS % (AUTO) 0.3 % (0-2); EOSINOPHILS % (AUTO) 2.5 % (0-6); HEMOGLOBIN 12.1 g/dL (13.5-17.0); LYMPHOCYTES % (AUTO) 17.6 % (13-45); MEAN CORPUSCULAR HEMOGLOBIN 31.4 pg (27.0-33.4); MEAN CORPUSCULAR HGB CONC 33.6 g/dL (32.0-36.0); MEAN CORPUSCULAR VOLUME 93 fl (80-97); MONOCYTES % (AUTO) 9.5 % (3-13); PLATELET COUNT 197 10^3/uL (150-450); RED BLOOD COUNT 3.85 10^6/uL (4.35-5.55); RED CELL DISTRIBUTION WIDTH 13.8 % (11.5-14.0); SEGMENTED NEUTROPHILS % (AUTO) 70.1 % (42-78); TOTAL CELLS COUNTED % (AUTO) 100 %; WHITE BLOOD COUNT 6.5 10^3/uL (4.0-10.5)
[2019-11-09] MEDS: INSULIN LISPRO 100 UNIT/ML 3 ML VIAL SUBCUT SCH ×4 (08:01→21:18)
[2019-11-09] MEDS: NATEGLINIDE 60 MG TABLET PO SCH ×3 (08:04→15:31)
[2019-11-09] MEDS: TIMOLOL MALEATE 0.5% OPH SOLN 5 ML OU SCH ×2 (08:06→21:08)
[2019-11-09] MEDS: BRIMONIDINE TARTRATE 0.2% OPH SOLN 5 ML OU SCH ×2 (08:07→21:08)
[2019-11-09] MEDS: PANTOPRAZOLE SODIUM 40 MG TABLET.DR PO SCH (09:04)
[2019-11-09] MEDS: CEFEPIME 1 GM/D5W RTU 1 GM/50 ML RTUPB IV SCH ×2 (09:04→21:09)
[2019-11-09] MEDS: FAMOTIDINE 20 MG TABLET PO SCH ×2 (09:05→21:09)
[2019-11-09] MEDS: METOPROLOL SUCCINATE 50 MG TAB.SR.24H PO SCH (09:05)
[2019-11-09] MEDS: ASPIRIN 81 MG TABLET, ENT COATED PO SCH (09:05)
[2019-11-09] MEDS: FINASTERIDE 5 MG TABLET PO SCH (09:05)
[2019-11-09] MEDS: FUROSEMIDE 40 MG TABLET PO SCH (09:05)
[2019-11-09] MEDS: PRAMIPEXOLE DI-HCL 0.5 MG TABLET PO SCH (09:05)
[2019-11-09] MEDS: AMLODIPINE BESYLATE 10 MG TABLET PO SCH (09:44)
--- NOTE | 2019-11-09 11:46 | PDOC PROGRESS REPORT ---
Subjective Progress Note for:: 11/09/19 Subjective:: Patient is currently doing well except patient having some loose stool patient is to sample of C. difficile is negative Patient's denied any chest pain denied any shortness of the breath Reason For Visit: PNEMONIA Physical Exam Vital Signs: Temp Pulse Resp BP Pulse Ox 98.5 F 57 L 17 129/70 H 98 11/09/19 10:56 11/09/19 10:56 11/09/19 10:56 11/09/19 10:56 11/09/19 10:56 Intake & Output 11/08/19 11/09/19 11/10/19 06:59 06:59 06:59 Intake Total 700 1312 Balance 700 1312 Weight 95.4 kg 94.3 kg General appearance: PRESENT: no acute distress, well-developed, well-nourished Head exam: PRESENT: atraumatic, normocephalic Eye exam: PRESENT: conjunctiva pink, EOMI, PERRLA. ABSENT: scleral icterus Ear exam: PRESENT: normal external ear exam Mouth exam: PRESENT: moist, tongue midline Neck exam: PRESENT: full ROM. ABSENT: carotid bruit, JVD, lymphadenopathy, thyromegaly Respiratory exam: PRESENT: clear to auscultation [place] Cardiovascular exam: PRESENT: RRR. ABSENT: diastolic murmur, rubs, systolic murmur Pulses: PRESENT: normal dorsalis pedis pul, +2 pedal pulses bilateral Vascular exam: PRESENT: normal capillary refill GI/Abdominal exam: PRESENT: normal bowel sounds, soft. ABSENT: distended, guarding, mass, organolmegaly, rebound, tenderness Rectal exam: PRESENT: deferred Neurological exam: PRESENT: alert, awake, oriented to person, oriented to place, oriented to time, oriented to situation, CN II-XII grossly intact. ABSENT: motor sensory deficit Psychiatric exam: PRESENT: appropriate affect, normal mood. ABSENT: homicidal ideation, suicidal ideation Skin exam: PRESENT: dry, intact, warm. ABSENT: cyanosis, rash Results Laboratory Results: 11/09/19 04:53 11/08/19 07:39 11/08/19 11/09/19 19:45 04:53 WBC 6.5 RBC 3.85 L Hgb 12.1 L Hct 36.0 L MCV 93 MCH 31.4 MCHC 33.6 RDW 13.8 Plt Count 197 Seg Neutrophils % 70.1 Stl C.difficile Tox PCR NEGATIVE 11/07/19 07:20 Clean Catch Midstream Urine Culture - Final 2,000 col/ml 11/07/19 06:55 Blood Blood Culture (PCR) - Final Streptococcus Species 11/07/19 11/07/19 11/07/19 06:35 11:07 11:07 Creatine Kinase 69 CK-MB (CK-2) 0.51 Troponin I < 0.012 0.015 NT-Pro-B Natriuret Pep 2820 H 11/07/19 11/07/19 11/08/19 19:03 19:03 00:38 Creatine Kinase 86 79 CK-MB (CK-2) 0.59 Troponin I 0.019 NT-Pro-B Natriuret Pep 11/08/19 11/08/19 00:38 07:39 Creatine Kinase CK-MB (CK-2) 0.53 Troponin I 0.029 NT-Pro-B Natriuret Pep 6210 H Impressions: Chest CT 11/07/19 00:00 IMPRESSION: Patchy area of consolidation in the left lower lobe with air bronchograms and scattered centrilobular nodular opacities in the left upper and superior portion of the left lower lobe. Clinical correlation to exclude a multifocal infection is recommended. Lung Scan-VQ NM 11/07/19 00:00 IMPRESSION: Low probability for pulmonary embolus. Chest X-Ray 11/07/19 06:27 IMPRESSION: Patchy left lower lung opacity suggestive of pneumonia. Assessment & Plan - Diagnosis (1) Pneumonia Qualifiers: Pneumonia type: due to unspecified organism Laterality: left Lung location: lower lobe of lung Qualified Code(s): J18.9 - Pneumonia, unspecified organism Is this a current diagnosis for this admission?: Yes Plan: Continues IV cefepime and Levaquin (2) Chest pain Qualifiers: Chest pain type: unspecified Qualified Code(s): R07.9 - Chest pain, unspecified Is this a current diagnosis for this admission?: Yes Plan: Most likely noncardiac currently all stable denied any complaints (3) Hypertension Qualifiers: Hypertension type: essential hypertension Qualified Code(s): I10 - Essential (primary) hypertension Is this a current diagnosis for this admission?: Yes Plan: Continues to current medications (4) Type 2 diabetes mellitus Qualifiers: Chronic kidney disease stage: stage 3 (moderate) Is this a current diagnosis for this admission?: Yes Plan: Continues a sliding scales (5) Chronic kidney disease Qualifiers: Chronic kidney disease stage: stage 3 (moderate) Qualified Code(s): N18.3 - Chronic kidney disease, stage 3 (moderate) Is this a current diagnosis for this admission?: Yes Plan: Patient is currently see her Dr. Alvarado as an outpatient (6) CAD (coronary artery disease) Qualifiers: Coronary Disease-Associated Artery/Lesion type: bypass graft Associated angina: without angina Is this a current diagnosis for this admission?: Yes Plan: Consult Dr. ROMAN for further evaluated with chest pain the serial cardiac enzyme (7) Hyperlipemia Qualifiers: Hyperlipidemia type: unspecified Qualified Code(s): E78.5 - Hyperlipidemia, unspecified Is this a current diagnosis for this admission?: Yes (8) Benign prostate hyperplasia Qualifiers: Lower urinary tract symptom presence: symptoms absent Qualified Code(s): N40.0 - Benign prostatic hyperplasia without lower urinary tract symptoms Is this a current diagnosis for this admission?: Yes Plan: Continues to Flomax and finasteride (9) Respiratory failure Qualifiers: Chronicity: acute Respiratory failure complication: hypoxia Qualified Code(s): J96.01 - Acute respiratory failure with hypoxia Is this a current diagnosis for this admission?: Yes Plan: Currently back to the nasal cannula all stable (10) Chronic a-fib Is this a current diagnosis for this admission?: Yes Plan: Currently off the Eliquis due to his recent subdural hematoma continues aspirin continues to monitor we will consult Dr. ROMAN - Time Time Spent with patient: 15-24 minutes Level of Care: TELE Medications reviewed and adjusted accordingly: Yes Anticipated discharge: Other Within: Other - Plan Summary Plan Summary: Continues IV antibiotic Add the Flagyl p.o. Discussed with the family on the bedside
--- NOTE | 2019-11-09 13:57 | RADIOLOGY REPORT (SQ) ---
EXAM DESCRIPTION: CHEST 2 VIEWS COMPLETED DATE/TIME: 11/09/2019 12:59 pm REASON FOR STUDY: Pneumonia COMPARISON: CT of the chest without contrast from 11/07/2019. EXAM PARAMETERS: NUMBER OF VIEWS: two views TECHNIQUE: PA and lateral views of the chest were obtained. RADIATION DOSE: NA LIMITATIONS: none FINDINGS: LUNGS AND PLEURA: Unchanged patchy parenchymal opacities in the left retrocardiac space. There is no sizable pleural effusion or pneumothorax. MEDIASTINUM AND HILAR STRUCTURES: Stable mediastinal and hilar contours. HEART AND VASCULAR STRUCTURES: Stable cardiac silhouette. BONES: No acute findings. HARDWARE: None in the chest. OTHER: No other finding. IMPRESSION: Unchanged patchy parenchymal opacities in the left retrocardiac space that corresponds t o the patchy areas of consolidation described on the correlative CT. TECHNICAL DOCUMENTATION: JOB ID: [id number] [employer]- All Rights Reserved Reading location - IP/workstation name: [email or web address]
[2019-11-09] MEDS: METRONIDAZOLE 500 MG TABLET PO SCH ×2 (15:31→21:09)
[2019-11-09] MEDS: TAMSULOSIN HCL 0.4 MG CAP.SR.24H PO SCH (18:14)
[2019-11-09] MEDS: LEVOFLOXACIN 500 MG/D5W RTU 500 MG/100 ML RTUPB IV SCH (21:09)
[2019-11-09] MEDS: ATORVASTATIN CALCIUM 40 MG TABLET PO SCH (21:09)
[2019-11-09] MEDS: DONEPEZIL HCL 5 MG TABLET PO SCH (21:09)
--- NOTE | 2019-11-09 21:13 | Progress Note ---
Provider Note Provider Note: CARDIOLOGY PROGRESS NOTE by Dr. Aminta Gudino on 11/09/2019. SUBJECTIVE: The patient states she feels that he is feeling better. He denies any chest pain or discomfort. His shortness of breath is much improved. His cough is also much improved he still coughing up a lot of yellowish sputum. There is no hemoptysis. There is no pleuritic chest pain.. There is no TIA CVA symptoms. There is no ventricular arrhythmias. His atrial fibrillation is well controlled. Physical EXAMINATION: The patient is mildly obese in no acute distress. Selected Entries 11/09/19 11/09/19 10:56 15:37 Temperature 98.5 F 97.2 F Temperature Oral Oral Source Pulse Rate 57 L 65 Respiratory 17 17 Rate Blood Pressure 129/70 H 166/77 H Blood Pressure 106 Mean BP Location Left Arm Right Arm BP Position Sitting Supine O2 Sat by Pulse 98 93 Oximetry Oxygen Flow 2.00 Rate Oxygen Delivery Nasal Cannula Room Air Method HEAD: Atraumatic normocephalic. EYES: Pupils are equal round regular reactive to light and accommodation. Extraocular movements are normal. There is no conjunctival pallor. There is no scleral icterus. EARS: Tympanic membranes are intact. External auditory canals are clear. THROAT: There is no redness of the oropharynx. There is no exudates. NOSE: There is no deviated nasal septum. There is no inflammation nasal mucous membrane. MOUTH:. Mucous membranes of mouth are moist. Tongue is moist. There is no ulcers. There is no bleeding from the gums. SKIN: There is no skin rashes. There is no skin lesions. There is no particular ecchymosis. NECK: Is supple. There is no JVD. Carotids are equal there is no bruit. There is no lymphadenopathy. There is no goiter. There is no accessory muscle respiration use. Trachea central. LUNGS: There is tubular breath sounds in the left upper left mid and lower lobe. With egophony heard here. There are also a few dry crackles. There is no rales of CHF. HEART: S1-S2 is heard. There is no S3 gallop. There is no S4 gallop. S1 is of variable intensity. There is systolic murmur left sternal border and the apex there is no rub. ABDOMEN: Is soft. Nontender. There is no paraspinal megaly. Bowel sounds are well heard. EXTREMITIES: Femorals are well felt. There is no femoral bruits. Leg pulses are well felt. There is no pedal edema. There is no DVT or cellulitis. There is no calf tenderness. There is no cyanosis or clubbing. ACCOUNT DIRECTOR: The patient is conscious awake alert oriented x3 with no focal deficits. PSYCHIATRIC: The patient judgment insight are intact his affect is normal. Labs- All tests 24 hr 11/08/19 11/09/19 11/09/19 19:45 04:53 06:19 WBC 6.5 RBC 3.85 L Hgb 12.1 L Hct 36.0 L MCV 93 MCH 31.4 MCHC 33.6 RDW 13.8 Plt Count 197 Lymph % (Auto) 17.6 Armstrong % (Auto) 9.5 Eos % (Auto) 2.5 Baso % (Auto) 0.3 Absolute Neuts (auto) 4.5 Absolute Lymphs (auto) 1.1 Absolute Monos (auto) 0.6 Absolute Eos (auto) 0.2 Absolute Basos (auto) 0.0 Seg Neutrophils % 70.1 POC Glucose 115 H Stl C. Difficile GDH Ag POSITIVE Stl C.difficile Tox A&B NEGATIVE Stl C.difficile Tox PCR NEGATIVE 11/09/19 11/09/19 11/09/19 11:48 18:58 21:16 WBC RBC Hgb Hct MCV MCH MCHC RDW Plt Count Lymph % (Auto) Armstrong % (Auto) Eos % (Auto) Baso % (Auto) Absolute Neuts (auto) Absolute Lymphs (auto) Absolute Monos (auto) Absolute Eos (auto) Absolute Basos (auto) Seg Neutrophils % POC Glucose 197 H 271 H 273 H Stl C. Difficile GDH Ag Stl C.difficile Tox A&B Stl C.difficile Tox PCR Chest CT 11/07/19 00:00 IMPRESSION: Patchy area of consolidation in the left lower lobe with air bronc hograms and scattered centrilobular nodular opacities in the left upper and superior portion of the left lower lobe. Clinical correlation to exclude a multifocal infection is recommended. Lung Scan-VQ NM 11/07/19 00:00 IMPRESSION: Low probability for pulmonary embolus. Chest X-Ray 11/07/19 06:27 IMPRESSION: Patchy left lower lung opacity suggestive of pneumonia. Chest X-Ray 11/09/19 00:00 IMPRESSION: Unchanged patchy parenchymal opacities in the left retrocardiac space that corresponds to the patchy areas of consolidation described on the correlative CT. IMPRESSION/RECOMMENDATION: 1. Chest pain: Noncardiac. Secondary to musculoskeletal and secondary to his pneumonia. No evidence of acute coronary syndrome. The patient EKG shows no acute changes. And the patient's troponin is negative. 2. Multifocal left lung pneumonia: Continue antibiotics. 3. History of recent subdural hematoma after accidental fall. . Chronic atrial fibrillation: At present ventricular rate well controlled continue current medications. 5. Coronary artery disease: Prior history of myocardial infarction. No anginal symptoms in the long time. History of stents in the LAD and circumflex. 6. Hypertension: Blood pressure slightly elevated most likely secondary to his acute infectious process and discomfort due to his pneumonia. 7. Diabetes mellitus. Type II [id number] continue antidiabetic medication. 8. Chronic kidney disease stage III: Avoid nephrotoxic drugs. I HAVE left a message for Dr. Sultana, the trauma surgeon will discharge the patient. He has not called back. This to see if we can restart the patient's Eliquis. In the meantime will get CT scan of the head, for the status of the subdural hematoma. Medications reviewed. Medical regimen and management plan discussed with the attending physician Dr. Deras. Medical decision making is of moderate complexity. 40 minutes spent on this patient with more than 50% of time spent in direct patient care. Will follow.
[2019-11-09 23:27] LABS: ARTERIAL BLOOD BASE EXCESS 0.6 mmol/L; ARTERIAL BLOOD FIO2 21%; ARTERIAL BLOOD H2CO3 1.18 mmol/L (1.05-1.35); ARTERIAL BLOOD O2 SATURATION 94.4 % (94-98); ARTERIAL BLOOD PCO2 39.3 mmHg (35-45); ARTERIAL BLOOD PH 7.42 (7.35-7.45); ARTERIAL BLOOD PO2 69.8 mmHg (80-100); ARTERIAL BLOOD TOTAL CO2 26.2 mmol/L (23-27)
[2019-11-10] MEDS: ACETAMINOPHEN 325 MG TABLET PO PRN (00:19)
[2019-11-10] MEDS: METRONIDAZOLE 500 MG TABLET PO SCH ×3 (05:42→21:06)
[2019-11-10 06:03] LABS: ABSOLUTE EOSINOPHILS # (AUTO) 0.2 10^3/uL (0.0-0.6); ABSOLUTE LYMPHOCYTES (AUTO) 1.2 10^3/uL (0.5-4.7); ABSOLUTE MONOCYTES (AUTO) 0.4 10^3/uL (0.1-1.4); ABSOLUTE NEUT (AUTO) 3.5 10^3/uL (1.7-8.2); BASOPHILS % (AUTO) 0.2 % (0-2); EOSINOPHILS % (AUTO) 3.3 % (0-6); HEMATOCRIT 37.2 % (37.9-51.0); HEMOGLOBIN 12.6 g/dL (13.5-17.0); LYMPHOCYTES % (AUTO) 22.2 % (13-45); MEAN CORPUSCULAR HEMOGLOBIN 31.5 pg (27.0-33.4); MEAN CORPUSCULAR HGB CONC 33.9 g/dL (32.0-36.0); MEAN CORPUSCULAR VOLUME 93 fl (80-97); MONOCYTES % (AUTO) 7.9 % (3-13); PLATELET COUNT 215 10^3/uL (150-450); RED CELL DISTRIBUTION WIDTH 13.5 % (11.5-14.0); SEGMENTED NEUTROPHILS % (AUTO) 66.4 % (42-78); TOTAL CELLS COUNTED % (AUTO) 100 %; WHITE BLOOD COUNT 5.3 10^3/uL (4.0-10.5)
[2019-11-10] MEDS: NATEGLINIDE 60 MG TABLET PO SCH ×3 (07:53→15:10)
[2019-11-10] MEDS: BRIMONIDINE TARTRATE 0.2% OPH SOLN 5 ML OU SCH ×2 (07:54→21:06)
[2019-11-10] MEDS: TIMOLOL MALEATE 0.5% OPH SOLN 5 ML OU SCH ×2 (07:54→21:06)
[2019-11-10] MEDS: INSULIN LISPRO 100 UNIT/ML 3 ML VIAL SUBCUT SCH ×4 (08:03→22:26)
[2019-11-10] MEDS: CEFEPIME 1 GM/D5W RTU 1 GM/50 ML RTUPB IV SCH ×2 (09:05→21:06)
[2019-11-10] MEDS: METOPROLOL SUCCINATE 50 MG TAB.SR.24H PO SCH (09:06)
[2019-11-10] MEDS: PRAMIPEXOLE DI-HCL 0.5 MG TABLET PO SCH (09:06)
[2019-11-10] MEDS: FINASTERIDE 5 MG TABLET PO SCH (09:06)
[2019-11-10] MEDS: FAMOTIDINE 20 MG TABLET PO SCH ×2 (09:06→21:06)
[2019-11-10] MEDS: ASPIRIN 81 MG TABLET, ENT COATED PO SCH (09:06)
[2019-11-10] MEDS: FUROSEMIDE 40 MG TABLET PO SCH (09:06)
[2019-11-10] MEDS: AMLODIPINE BESYLATE 10 MG TABLET PO SCH (09:07)
[2019-11-10] MEDS: PANTOPRAZOLE SODIUM 40 MG TABLET.DR PO SCH (09:07)
[2019-11-10] MEDS: TAMSULOSIN HCL 0.4 MG CAP.SR.24H PO SCH (17:03)
--- NOTE | 2019-11-10 19:22 | RADIOLOGY REPORT (SQ) ---
EXAM DESCRIPTION: CT HEAD WITHOUT COMPLETED DATE/TIME: 11/10/2019 7:00 pm REASON FOR STUDY: History of subdural hematoma COMPARISON: 10/16/2019 TECHNIQUE: Axial images acquired through the brain without intravenous contrast. Images reviewed wit h bone, brain and subdural windows. Images stored on PACS. All CT scanners at this facility use dose modulation, iterative reconstruction, and/or weight based d osing when appropriate to reduce radiation dose to as low as reasonably achievable (ALARA). [facility]: Dose Right [facility]: CareDose [facility]: Dose Right [facility]: Teradose 4D [facility]: [employer] RADIATION DOSE: CT Rad equipment meets quality standard of care and radiation dose reduction techniq ues were employed. CTDIvol: 53.2 mGy. DLP: 991 mGy-cm.. LIMITATIONS: None. FINDINGS: VENTRICLES: Normal size and contour. CEREBRUM: Small subdural on the falx noted previously has resolved. . No hemorrhage. No midline shif t. Age appropriate white matter. No evidence for acute infarction. CEREBELLUM: No masses. No hemorrhage. No alteration of density. No evidence for acute infarction. EXTRA-AXIAL SPACES: No fluid collections. ORBITS AND GLOBE: No intra- or extraconal masses. Normal contour of globe without masses. CALVARIUM: No fracture. PARANASAL SINUSES: Mild ethmoid mucosal thickening. SOFT TISSUES: No mass or hematoma. OTHER: No other significant finding. IMPRESSION: NO ACUTE INTRACRANIAL FINDINGS.Small subdural on the falx noted previously has resolved. EVIDENCE OF ACUTE STROKE: NO. TECHNICAL DOCUMENTATION: JOB ID: [id number] [place]-72 Quality ID # [id number]: Final reports with documentation of one or more dose reduction techniques (e.g., Au tomated exposure control, adjustment of the mA and/or kV according to patient size, use of iterative reconstruction technique) 2010 [id number]- All Rights Reserved Reading location - IP/workstation name: [employer]
--- NOTE | 2019-11-10 19:22 | Progress Note ---
Provider Note Provider Note: CARDIOLOGY PROGRESS NOTE by Dr. Aminta Gudino on 11/10/2019. Subjective: The patient denies any chest pain or discomfort. He is shortness of breath is much improved and he has no shortness of breath at rest. There is no PND orthopnea. He is coughing up yellowish sputum. Although his chest x-ray shows no significant changes his clinical examination shows remarkable improvement. The patient continues to be in atrial fibrillation with controlled ventricular response. There is no ventricular arrhythmias. There is no TIA CVA symptoms. There is still no reply from Dr. Sultana. PHYSICAL EXAMINATION: The patient is mildly obese. In no acute distress. He is well-groomed. Selected Entries 11/10/19 12:00 Temperature 97.3 F Temperature Oral Source Pulse Rate 68 Respiratory 16 Rate Blood Pressure 169/75 H [Left Upper Arm ] Blood Pressure 106 Mean [Left Upper Arm] Blood Pressure Supine Position [Left Upper Arm] O2 Sat by Pulse 95 Oximetry Oxygen Delivery Room Air Method ( includes room air) HEAD: Atraumatic normocephalic. EYES: Pupils are equal round regular reactive to light and accommodation. Extraocular movements are normal. There is no conjunctival pallor. There is no scleral icterus. EARS: Tympanic membranes are intact. External auditory canals are clear. THROAT: There is no redness of the oropharynx. There is no exudates. NOSE: There is no deviated nasal septum. There is no inflammation nasal mucous membrane. MOUTH:. Mucous membranes of mouth are moist. Tongue is moist. There is no ulcers. There is no bleeding from the gums. SKIN: There is no skin rashes. There is no skin lesions. There is no particular ecchymosis. NECK: Is supple. There is no JVD. Carotids are equal there is no bruit. There is no lymphadenopathy. There is no goiter. There is no accessory muscle respiration use. Trachea central. LUNGS: There is tubular breath sounds in the left upper left mid and lower lobe. . There are also a few dry crackles. There is no rales of CHF. HEART: S1-S2 is heard. There is no S3 gallop. There is no S4 gallop. S1 is of variable intensity. There is systolic murmur left sternal border and the apex there is no rub. ABDOMEN: Is soft. Nontender. There is no paraspinal megaly. Bowel sounds are well heard. EXTREMITIES: Femorals are well felt. There is no femoral bruits. Leg pulses are well felt. There is no pedal edema. There is no DVT or cellulitis. There is no calf tenderness. There is no cyanosis or clubbing. CHOKE REAMER: The patient is conscious awake alert oriented x3 with no focal deficits. PSYCHIATRIC: The patient judgment insight are intact his affect is normal. Labs- All tests 24 hr 11/09/19 11/09/19 11/10/19 17:25 21:16 05:37 WBC 5.3 RBC 4.00 L Hgb 12.6 L Hct 37.2 L MCV 93 MCH 31.5 MCHC 33.9 RDW 13.5 Plt Count 215 Lymph % (Auto) 22.2 Dale % (Auto) 7.9 Eos % (Auto) 3.3 Baso % (Auto) 0.2 Absolute Neuts (auto) 3.5 Absolute Lymphs (auto) 1.2 Absolute Monos (auto) 0.4 Absolute Eos (auto) 0.2 Absolute Basos (auto) 0.0 Seg Neutrophils % 66.4 Carbonic Acid 1.18 HCO3/H2CO3 Ratio 21:1 ABG pH 7.42 ABG pCO2 39.3 ABG pO2 69.8 L ABG HCO3 25.0 H ABG Total CO2 26.2 ABG O2 Saturation 94.4 ABG Base Excess 0.6 FiO2 21% POC Glucose 273 H 11/10/19 11/10/19 11/10/19 06:27 11:37 15:09 WBC RBC Hgb Hct MCV MCH MCHC RDW Plt Count Lymph % (Auto) Dale % (Auto) Eos % (Auto) Baso % (Auto) Absolute Neuts (auto) Absolute Lymphs (auto) Absolute Monos (auto) Absolute Eos (auto) Absolute Basos (auto) Seg Neutrophils % Carbonic Acid HCO3/H2CO3 Ratio ABG pH ABG pCO2 ABG pO2 ABG HCO3 ABG Total CO2 ABG O2 Saturation ABG Base Excess FiO2 POC Glucose 129 H [address] 11/07/19 00:00 IMPRESSION: Patchy area of consolidation in the left lower lobe with air bronchograms and scattered centrilobular nodular opacities in the left upper and superior portion of the left lower lobe. Clinical correlation to exclude a multifocal infection is recommended. Lung Scan-VQ NM 11/07/19 00:00 IMPRESSION: Low probability for pulmonary embolus. Chest X-Ray 11/07/19 06:27 IMPRESSION: Patchy left lower lung opacity suggestive of pneumonia. Chest X-Ray 11/09/19 00:00 IMPRESSION: Unchanged patchy parenchymal opacities in the left retrocardiac space that corresponds to the patchy areas of consolidation described on the correlative CT. Head CT 11/10/19 00:00 IMPRESSION: NO ACUTE INTRACRANIAL FINDINGS.Small subdural on the falx noted previously has resolved. EVIDENCE OF ACUTE STROKE: NO. IMPRESSION/RECOMMENDATION: 1. Chest pain: Noncardiac. Secondary to musculoskeletal and secondary to his pneumonia. No evidence of acute coronary syndrome. The patient EKG shows no acute changes. And the patient's troponin is negative. 2. Multifocal left lung pneumonia: Continue antibiotics. 3. History of recent subdural hematoma after accidental fall. CT scan of the head shows resolution of the small subdural hematoma. Hence we will discuss with the patient and his and then start.Angel. Will discuss with the patient. . Chronic atrial fibrillation: At present ventricular rate well controlled continue current medications. 5. Coronary artery disease: Prior history of myocardial infarction. No anginal symptoms in the long time. History of stents in the LAD and circumflex. 6. Hypertension: Blood pressure slightly elevated most likely secondary to his acute infectious process and discomfort due to his pneumonia. 7. Diabetes mellitus. Type II [id number] continue antidiabetic medication. 8. Chronic kidney disease stage III: Avoid nephrotoxic drugs. Occasions reviewed. Medical regimen and management plan discussed with attending physician Dr. Ashley covering for Drs. Deras. Medical decision making is of high complexity. 40 minutes spent on this patient with more than 50% of time spent in direct patient care. Will follow.
--- NOTE | 2019-11-10 20:48 | PDOC PROGRESS REPORT ---
Subjective Progress Note for:: 11/10/19 Subjective:: Patient seen by the bedside, he was admitted for the management of pneumonia, he has a history of subdural hematoma, traumatic, due to fall he was on anticoagulant for atrial fibrillation, the anticoagulant was held because of the subdural hematoma, a repeat CAT scan that was done today suggests complete resolution of the subdural hematoma it is probably safe to restart Angel Garcia is following patient Reason For Visit: PNEMONIA Physical Exam Vital Signs: Temp Pulse Resp BP Pulse Ox 97.3 F 58 L 20 170/89 H 92 11/10/19 15:13 11/10/19 15:13 11/10/19 15:13 11/10/19 15:13 11/10/19 15:13 Intake & Output 11/09/19 11/10/19 11/11/19 06:59 06:59 06:59 Intake Total 1312 1000 632 Balance 1312 1000 632 Weight 94.3 kg 95.1 kg General appearance: PRESENT: no acute distress Eye exam: PRESENT: PERRLA Respiratory exam: PRESENT: clear to auscultation hselby Cardiovascular exam: PRESENT: +S1, +S2 GI/Abdominal exam: PRESENT: soft Neurological exam: PRESENT: alert Results Laboratory Results: 11/10/19 05:37 11/08/19 07:39 11/09/19 11/10/19 17:25 05:37 WBC 5.3 RBC 4.00 L Hgb 12.6 L Hct 37.2 L MCV 93 MCH 31.5 MCHC 33.9 RDW 13.5 Plt Count 215 Seg Neutrophils % 66.4 Carbonic Acid 1.18 HCO3/H2CO3 Ratio 21:1 ABG pH 7.42 ABG pCO2 39.3 ABG pO2 69.8 L ABG HCO3 25.0 H ABG O2 Saturation 94.4 ABG Base Excess 0.6 FiO2 21% 11/07/19 19:30 Sputum Gram Stain - Final 11/07/19 06:55 Blood Blood Culture (PCR) - Final Streptococcus Species 11/07/19 11/07/19 11/07/19 06:35 11:07 11:07 Creatine Kinase 69 CK-MB (CK-2) 0.51 Troponin I < 0.012 0.015 NT-Pro-B Natriuret Pep 2820 H 11/07/19 11/07/19 11/08/19 19:03 19:03 00:38 Creatine Kinase 86 79 CK-MB (CK-2) 0.59 Troponin I 0.019 NT-Pro-B Natriuret Pep 11/08/19 11/08/19 00:38 07:39 Creatine Kinase CK-MB (CK-2) 0.53 Troponin I 0.029 NT-Pro-B Natriuret Pep 6210 H Impressions: Chest CT 11/07/19 00:00 IMPRESSION: Patchy area of consolidation in the left lower lobe with air bronchograms and scattered centrilobular nodular opacities in the left upper and superior portion of the left lower lobe. Clinical correlation to exclude a multifocal infection is recommended. Lung Scan-VQ NM 11/07/19 00:00 IMPRESSION: Low probability for pulmonary embolus. Chest X-Ray 11/09/19 00:00 IMPRESSION: Unchanged patchy parenchymal opacities in the left retrocardiac space that corresponds to the patchy areas of consolidation described on the correlative CT. Head CT 11/10/19 00:00 IMPRESSION: NO ACUTE INTRACRANIAL FINDINGS.Small subdural on the falx noted previously has resolved. EVIDENCE OF ACUTE STROKE: NO. Assessment & Plan - Diagnosis (1) Pneumonia Qualifiers: Pneumonia type: due to unspecified organism Laterality: left Lung loca tion: lower lobe of lung Qualified Code(s): J18.9 - Pneumonia, unspecified organism Is this a current diagnosis for this admission?: Yes Plan: Continue present treatment (2) Respiratory failure Qualifiers: Chronicity: acute Respiratory failure complication: hypoxia Qualified Code(s): J96.01 - Acute respiratory failure with hypoxia Is this a current diagnosis for this admission?: Yes Plan: Continue oxygen (3) Chronic kidney disease Qualifiers: Chronic kidney disease stage: stage 3 (moderate) Qualified Code(s): N18.3 - Chronic kidney disease, stage 3 (moderate) Is this a current diagnosis for this admission?: Yes (4) Chronic a-fib Is this a current diagnosis for this admission?: Yes - Time Time Spent with patient: 35 or more minutes Level of Care: TELE
[2019-11-10] MEDS: ATORVASTATIN CALCIUM 40 MG TABLET PO SCH (21:06)
[2019-11-10] MEDS: DONEPEZIL HCL 5 MG TABLET PO SCH (21:06)
[2019-11-10] MEDS: LEVOFLOXACIN 500 MG/D5W RTU 500 MG/100 ML RTUPB IV SCH (21:06)
[2019-11-11] MEDS: METRONIDAZOLE 500 MG TABLET PO SCH ×3 (06:27→21:23)
[2019-11-11] MEDS: NATEGLINIDE 60 MG TABLET PO SCH ×3 (07:56→17:04)
[2019-11-11] MEDS: INSULIN LISPRO 100 UNIT/ML 3 ML VIAL SUBCUT SCH ×4 (07:57→21:33)
[2019-11-11] MEDS: TIMOLOL MALEATE 0.5% OPH SOLN 5 ML OU SCH ×2 (07:57→21:28)
[2019-11-11] MEDS: BRIMONIDINE TARTRATE 0.2% OPH SOLN 5 ML OU SCH ×2 (07:57→21:28)
[2019-11-11] MEDS: CEFEPIME 1 GM/D5W RTU 1 GM/50 ML RTUPB IV SCH ×2 (09:00→21:24)
[2019-11-11] MEDS: FINASTERIDE 5 MG TABLET PO SCH (09:47)
[2019-11-11] MEDS: ASPIRIN 81 MG TABLET, ENT COATED PO SCH (09:47)
[2019-11-11] MEDS: AMLODIPINE BESYLATE 10 MG TABLET PO SCH (09:47)
[2019-11-11] MEDS: FAMOTIDINE 20 MG TABLET PO SCH ×2 (09:48→21:23)
[2019-11-11] MEDS: FUROSEMIDE 40 MG TABLET PO SCH (09:48)
[2019-11-11] MEDS: METOPROLOL SUCCINATE 50 MG TAB.SR.24H PO SCH (09:48)
[2019-11-11] MEDS: PANTOPRAZOLE SODIUM 40 MG TABLET.DR PO SCH (09:49)
[2019-11-11] MEDS: PRAMIPEXOLE DI-HCL 0.5 MG TABLET PO SCH (09:49)
--- NOTE | 2019-11-11 16:20 | PDOC PROGRESS REPORT ---
Subjective Progress Note for:: 11/11/19 Subjective:: Blood culture grew Streptococcus mitis, a member of the Streptococcus viridans, this bacteria is notorious for causing endocarditis, patient presently on IV antibiotic, cefepime and Levaquin which is adequate coverage, he probably should have JETT done. Patient wants to go home today, I explained to him that he has Streptococcus mitis with the potential for endocarditis, I would not advise for him to be discharged home unless he is willing to leave AMA. CT scan of the head that was done yesterday suggests complete resolution of the subdural hematoma, it is probably reasonable to restart anticoagulant but I leave that to Dr. Garcia Reason For Visit: PNEMONIA Physical Exam Vital Signs: Temp Pulse Resp BP Pulse Ox 97.8 F 64 12 151/76 H 97 11/11/19 11:16 11/11/19 11:16 11/11/19 11:16 11/11/19 11:16 11/11/19 11:16 Intake & Output 11/10/19 11/11/19 11/12/19 06:59 06:59 06:59 Intake Total 1000 1192 50 Balance 1000 1192 50 Weight 95.1 kg 97.2 kg General appearance: PRESENT: no acute distress Eye exam: PRESENT: PERRLA Respiratory exam: PRESENT: clear to auscultation shelby Cardiovascular exam: PRESENT: +S1, +S2 GI/Abdominal exam: PRESENT: soft Neurological exam: PRESENT: alert Results Laboratory Results: 11/10/19 05:37 11/08/19 07:39 11/07/19 06:55 VBG pH 7.36 VBG pCO2 41.2 VBG HCO3 23.0 VBG Base Excess -2.3 11/07/19 06:55 Blood Blood Culture (PCR) - Final Streptococcus Species 11/07/19 06:55 Blood Blood Culture - Final Streptococcus Mitis 11/07/19 19:30 Sputum Gram Stain - Final 11/07/19 11/07/19 11/07/19 06:35 11:07 11:07 Creatine Kinase 69 CK-MB (CK-2) 0.51 Troponin I < 0.012 0.015 NT-Pro-B Natriuret Pep 2820 H 11/07/19 11/07/19 11/08/19 19:03 19:03 00:38 Creatine Kinase 86 79 CK-MB (CK-2) 0.59 Troponin I 0.019 NT-Pro-B Natriuret Pep 11/08/19 11/08/19 00:38 07:39 Creatine Kinase CK-MB (CK-2) 0.53 Troponin I 0.029 NT-Pro-B Natriuret Pep 6210 H Impressions: Chest CT 11/07/19 00:00 IMPRESSION: Patchy area of consolidation in the left lower lobe with air bronchograms and scattered centrilobular nodular opacities in the left upper and superior portion of the left lower lobe. Clinical correlation to exclude a multifocal infection is recommended. Lung Scan-VQ NM 11/07/19 00:00 IMPRESSION: Low probability for pulmonary embolus. Chest X-Ray 11/09/19 00:00 IMPRESSION: Unchanged patchy parenchymal opacities in the left retrocardiac space that corresponds to the patchy areas of consolidation described on the correlative CT. Head CT 11/10/19 00:00 IMPRESSION: NO ACUTE INTRACRANIAL FINDINGS.Small subdural on the falx noted previously has resolved. EVIDENCE OF ACUTE STROKE: NO. Assessment & Plan - Diagnosis (1) Pneumonia Qualifiers: Pneumonia type: due to unspecified organism Laterality: left Lung location: lower lobe of lung Qualified Code(s): J18.9 - Pneumonia, unspecified organism Is this a current diagnosis for this admission?: Yes (2) Respiratory failure Qualifiers: Chronicity: acute Respiratory failure complication: hypoxia Qualified Code(s): J96.01 - Acute respiratory failure with hypoxia Is this a current diagnosis for this admission?: Yes (3) Chronic kidney disease Qualifiers: Chronic kidney disease stage: stage 3 (moderate) Qualified Code(s): N18.3 - Chronic kidney disease, stage 3 (moderate) Is this a current diagnosis for this admission?: Yes (4) Chronic a-fib Is this a current diagnosis for this admission?: Yes (5) Infection due to Streptococcus mitis group Is this a current diagnosis for this admission?: Yes (6) Septicemia, streptococcal Is this a current diagnosis for this admission?: Yes Plan: Continue present IV antibiotic - Time Time Spent with patient: 35 or more minutes Level of Care: TELE
[2019-11-11] MEDS: TAMSULOSIN HCL 0.4 MG CAP.SR.24H PO SCH (17:06)
--- NOTE | 2019-11-11 17:11 | Progress Note ---
Provider Note Provider Note: CARDIOLOGY PROGRESS NOTE by Dr. Aminta Gudino on 11/11/2019. SUBJECTIVE: The patient states he has no further shortness of breath. His cough is also much improved. He has no PND orthopnea. He is in atrial fibrillation controlled ventricular response. There is no TIA CVA symptoms. His CT scan of the head yesterday showed complete resolution of the subdural hematoma. Hence it should be safe to restart the patient Eliquis since the patient's corrected Eris vas 2 score is 5 and hence patient is at high risk for stroke. There is no ventricular arrhythmia seen on the monitor. The patient's blood cultures did grow Streptococcus mitis. There is no clinical evidence of endocarditis. PHYSICAL EXAMINATION: The patient is mildly obese in no acute distress. The patient is slightly 'peeved' to not being able to go home today. Selected Entries 11/11/19 11:16 Temperature 97.8 F Temperature Oral Source Pulse Rate 64 Respiratory 12 Rate Blood Pressure 151/76 H Blood Pressure 101 Mean BP Location Right Arm BP Position Sitting O2 Sat by Pulse 97 Oximetry Oxygen Delivery Room Air Method HEAD: Atraumatic normocephalic. EYES: Pupils are equal round regular reactive to light and accommodation. Extraocular movements are normal. There is no conjunctival pallor. There is no scleral icterus. EARS: Tympanic membranes are intact. External auditory canals are clear. THROAT: There is no redness of the oropharynx. There is no exudates. NOSE: There is no deviated nasal septum. There is no inflammation nasal mucous membrane. MOUTH:. Mucous membranes of mouth are moist. Tongue is moist. There is no ulcers. There is no bleeding from the gums. SKIN: There is no skin rashes. There is no skin lesions. There is no particular ecchymosis. NECK: Is supple. There is no JVD. Carotids are equal there is no bruit. There is no lymphadenopathy. There is no goiter. There is no accessory muscle respiration use. Trachea central. LUNGS: There is tubular breath sounds in the left upper left mid and lower lobe. . There are also a few dry crackles. There is no rales of CHF. HEART: S1-S2 is heard. There is no S3 gallop. There is no S4 gallop. S1 is of variable intensity. There is systolic murmur left sternal border and the apex there is no rub. ABDOMEN: Is soft. Nontender. There is no paraspinal megaly. Bowel sounds are well heard. EXTREMITIES: Femorals are well felt. There is no femoral bruits. Leg pulses are well felt. There is no pedal edema. There is no DVT or cellulitis. There is no calf tenderness. There is no cyanosis or clubbing. [employer]: The patient is conscious awake alert oriented x3 with no focal deficits. PSYCHIATRIC: The patient judgment insight are intact his affect is normal. Labs- All tests 24 hr 11/07/19 11/10/19 11/11/19 06:55 21:22 06:29 VBG pH 7.36 VBG pCO2 41.2 VBG HCO3 23.0 VBG Base Excess -2.3 POC Glucose 245 H 155 H 11/11/19 11/11/19 11:36 15:58 VBG pH VBG pCO2 VBG HCO3 VBG Base Excess POC Glucose [address] 11/07/19 00:00 IMPRESSION: Patchy area of consolidation in the left lower lobe with air bronchograms and scattered centrilobular nodular opacities in the left upper and superior portion of the left lower lobe. Clinical correlation to exclude a multifocal infection is recommended. Lung Scan-VQ NM 11/07/19 00:00 IMPRESSION: Low probability for pulmonary embolus. Chest X-Ray 11/07/19 06:27 IMPRESSION: Patchy left lower lung opacity suggestive of pneumonia. Chest X-Ray 11/09/19 00:00 IMPRESSION: Unchanged patchy parenchymal opacities in the left retrocardiac space that corresponds to the patchy areas of consolidation described on the correlative CT. Head CT 11/10/19 00:00 IMPRESSION: NO ACUTE INTRACRANIAL FINDINGS.Small subdural on the falx noted previously has resolved. EVIDENCE OF ACUTE STROKE: NO. IMPRESSION/RECOMMENDATION: 1. Chest pain: Noncardiac. Secondary to musculoskeletal and secondary to his pneumonia. No evidence of acute coronary syndrome. The patient EKG shows no acute changes. And the patient's troponin is negative. 2. Multifocal left lung pneumonia: Continue antibiotics. 3. History of recent subdural hematoma after accidental fall. CT scan of the head shows resolution of the small subdural hematoma. Hence we will discuss with the patient and his and then start.Eliquis. Discussed with the patient will start the patient on Eliquis at 2.5 mg p.o. twice daily. The patient is aware that risk of bleeding complications with Eliquis. He is also aware of the benefits of stroke prophylaxis with Eliquis. 4. Chronic atrial fibrillation: At present ventricular rate well controlled continue current medications. 5. Coronary artery disease: Prior history of myocardial infarction. No anginal symptoms in the long time. History of stents in the LAD and circumflex. 6. Hypertension: Blood pressure slightly elevated most likely secondary to his acute infectious process and discomfort due to his pneumonia. 7. Diabetes mellitus. Type II [id number] continue antidiabetic medication. 8. Chronic kidney disease stage III: Avoid nephrotoxic drugs. 9. The patient's corrected Eris vas 2 score is 5. Hence high risk of stroke occurrence in this patient. Medications reviewed. Medical regimen and management plan discussed with attending physician. Discussed restarting her Eliquis with the patient. He is aware of the benefits risks of bleeding with Eliquis. Medical decision making is of high complexity. 40 minutes spent as patient with more than 50% of time spent direct patient care. Will follow
[2019-11-11] MEDS: APIXABAN 2.5 MG TABLET PO SCH (17:58)
[2019-11-11] MEDS: DONEPEZIL HCL 5 MG TABLET PO SCH (21:23)
[2019-11-11] MEDS: LEVOFLOXACIN 500 MG/D5W RTU 500 MG/100 ML RTUPB IV SCH (21:23)
[2019-11-11] MEDS: ATORVASTATIN CALCIUM 40 MG TABLET PO SCH (21:23)
[2019-11-12] MEDS: ACETAMINOPHEN 325 MG TABLET PO PRN (01:32)
[2019-11-12] MEDS: METRONIDAZOLE 500 MG TABLET PO SCH (05:31)
[2019-11-12] MEDS: INSULIN LISPRO 100 UNIT/ML 3 ML VIAL SUBCUT SCH (09:15)
[2019-11-12] MEDS: METOPROLOL SUCCINATE 50 MG TAB.SR.24H PO SCH (09:23)
[2019-11-12] MEDS: FINASTERIDE 5 MG TABLET PO SCH (09:23)
[2019-11-12] MEDS: AMLODIPINE BESYLATE 10 MG TABLET PO SCH (09:23)
[2019-11-12] MEDS: ASPIRIN 81 MG TABLET, ENT COATED PO SCH (09:23)
[2019-11-12] MEDS: FUROSEMIDE 40 MG TABLET PO SCH (09:23)
[2019-11-12] MEDS: FAMOTIDINE 20 MG TABLET PO SCH (09:23)
[2019-11-12] MEDS: APIXABAN 2.5 MG TABLET PO SCH (09:23)
[2019-11-12] MEDS: PANTOPRAZOLE SODIUM 40 MG TABLET.DR PO SCH (09:23)
[2019-11-12] MEDS: NATEGLINIDE 60 MG TABLET PO SCH (09:24)
[2019-11-12] MEDS: TIMOLOL MALEATE 0.5% OPH SOLN 5 ML OU SCH (09:25)
[2019-11-12] MEDS: PRAMIPEXOLE DI-HCL 0.5 MG TABLET PO SCH (09:25)
[2019-11-12] MEDS: BRIMONIDINE TARTRATE 0.2% OPH SOLN 5 ML OU SCH (09:25)
[2019-11-12] MEDS ORDERED: LEVOFLOXACIN 500 MG TABLET PO SCH (10:00)
--- NOTE | 2019-11-12 11:37 | PDOC PROGRESS REPORT ---
Subjective Progress Note for:: 11/12/19 Subjective:: Patient is currently doing well Denied any chest pain no short of breath Patient wants to go home Discussed with the Dr. Jaime suggest no need for any echocardiograms patient is currently not looks like any septic's and one blood culture is positive and 1- currently on a p.o. antibiotic Restarted the Angel Cussed with the patient and the daughter regarding the all the test reports we will repeat the chest x-ray If the chest x-ray looks stable will continues the patient on p.o. Levaquin continues to monitor discharged home with home health follow outpatients Dr. Gudino Reason For Visit: PNEMONIA Physical Exam Vital Signs: Temp Pulse Resp BP Pulse Ox 98.1 F 68 16 139/61 H 93 11/12/19 07:36 11/12/19 07:36 11/12/19 07:36 11/12/19 07:36 11/12/19 07:36 Intake & Output 11/11/19 11/12/19 11/13/19 06:59 06:59 06:59 Intake Total 1192 1384 Balance 1192 1384 Weight 97.2 kg 92.6 kg General appearance: PRESENT: no acute distress, well-developed, well-nourished Head exam: PRESENT: atraumatic, normocephalic Eye exam: PRESENT: conjunctiva pink, EOMI, PERRLA. ABSENT: scleral icterus Ear exam: PRESENT: normal external ear exam Mouth exam: PRESENT: moist, tongue midline Neck exam: PRESENT: full ROM. ABSENT: carotid bruit, JVD, lymphadenopathy, thyromegaly Cardiovascular exam: PRESENT: RRR. ABSENT: diastolic murmur, rubs, systolic murmur Pulses: PRESENT: normal dorsalis pedis pul, +2 pedal pulses bilateral Vascular exam: PRESENT: normal capillary refill GI/Abdominal exam: PRESENT: normal bowel sounds, soft. ABSENT: distended, guarding, mass, organolmegaly, rebound, tenderness Rectal exam: PRESENT: deferred Musculoskeletal exam: PRESENT: ambulatory Neurological exam: PRESENT: alert, awake, oriented to person, oriented to place, oriented to time, oriented to situation, CN II-XII grossly intact. ABSENT: motor sensory deficit Psychiatric exam: PRESENT: appropriate affect, normal mood. ABSENT: homicidal ideation, suicidal ideation Skin exam: PRESENT: dry, intact, warm. ABSENT: cyanosis, rash Results Laboratory Results: 11/10/19 05:37 11/08/19 07:39 11/07/19 08:24 Blood Blood Culture - Final NO GROWTH IN 5 DAYS 11/07/19 19:30 Sputum Gram Stain - Final 11/07/19 19:30 Sputum Sputum Culture - Final NORMAL DASIA 11/07/19 06:55 Blood Blood Culture (PCR) - Final Streptococcus Species 11/07/19 06:55 Blood Blood Culture - Final Streptococcus Mitis 11/07/19 11/07/19 11/07/19 06:35 11:07 11:07 Creatine Kinase 69 CK-MB (CK-2) 0.51 Troponin I < 0.012 0.015 NT-Pro-B Natriuret Pep 2820 H 11/07/19 11/07/19 11/08/19 19:03 19:03 00:38 Creatine Kinase 86 79 CK-MB (CK-2) 0.59 Troponin I 0.019 NT-Pro-B Natriuret Pep 11/08/19 11/08/19 00:38 07:39 Creatine Kinase CK-MB (CK-2) 0.53 Troponin I 0.029 NT-Pro-B Natriuret Pep 6210 H Impressions: Chest CT 11/07/19 00:00 IMPRESSION: Patchy area of consolidation in the left lower lobe with air bronchograms and scattered centrilobular nodular opacities in the left upper and superior portion of the left lower lobe. Clinical correlation to exclude a multifocal infection is recommended. Lung Scan-VQ NM 11/07/19 00:00 IMPRESSION: Low probability for pulmonary embolus. Chest X-Ray 11/09/19 00:00 IMPRESSION: Unchanged patchy parenchymal opacities in the left retrocardiac space that corresponds to the patchy areas of consolidation described on the c orrelative CT. Head CT 11/10/19 00:00 IMPRESSION: NO ACUTE INTRACRANIAL FINDINGS.Small subdural on the falx noted previously has resolved. EVIDENCE OF ACUTE STROKE: NO. Assessment & Plan - Diagnosis (1) Pneumonia Qualifiers: Pneumonia type: due to unspecified organism Laterality: left Lung location: lower lobe of lung Qualified Code(s): J18.9 - Pneumonia, unspecified organism Is this a current diagnosis for this admission?: Yes Plan: Currently continues to p.o. Levaquin (2) Chest pain Qualifiers: Chest pain type: unspecified Qualified Code(s): R07.9 - Chest pain, un specified Is this a current diagnosis for this admission?: Yes Plan: Most likely noncardiac currently all stable denied any complaints (3) Hypertension Qualifiers: Hypertension type: essential hypertension Qualified Code(s): I10 - Essential (primary) hypertension Is this a current diagnosis for this admission?: Yes Plan: Continues to current medications (4) Type 2 diabetes mellitus Qualifiers: Chronic kidney disease stage: stage 3 (moderate) Is this a current diagnosis for this admission?: Yes Plan: Continues a sliding scales (5) Chronic kidney disease Qualifiers: Chronic kidney disease stage: stage 3 (moderate) Qualified Code(s): N18.3 - Chronic kidney disease, stage 3 (moderate) Is this a current diagnosis for this admission?: Yes (6) CAD (coronary artery disease) Qualifiers: Coronary Disease-Associated Artery/Lesion type: bypass graft Associated angina: without angina Is this a current diagnosis for this admission?: Yes Plan: Consult Dr. ROMAN for further evaluated with chest pain the serial cardiac enzyme (7) Hyperlipemia Qualifiers: Hyperlipidemia type: unspecified Qualified Code(s): E78.5 - Hyperlipidemia, unspecified Is this a current diagnosis for this admission?: Yes (8) Benign prostate hyperplasia Qualifiers: Lower urinary tract symptom presence: symptoms absent Qualified Code(s): N40.0 - Benign prostatic hyperplasia without lower urinary tract symptoms Is this a current diagnosis for this admission?: Yes (9) Respiratory failure Qualifiers: Chronicity: acute Respiratory failure complication: hypoxia Qualified Code(s): J96.01 - Acute respiratory failure with hypoxia Is this a current diagnosis for this admission?: Yes (10) Chronic a-fib Is this a current diagnosis for this admission?: Yes - Time Time Spent with patient: 15-24 minutes Level of Care: IMCU Medications reviewed and adjusted accordingly: Yes Anticipated discharge: Home Within: within 24 hours - Plan Summary Plan Summary: The patient is remained stable we will discharge the patient's to the home
--- NOTE | 2019-11-12 12:03 | RADIOLOGY REPORT (SQ) ---
EXAM DESCRIPTION: CHEST 2 VIEWS COMPLETED DATE/TIME: 11/12/2019 11:43 am REASON FOR STUDY: pnemonia COMPARISON: None. EXAM PARAMETERS: NUMBER OF VIEWS: two views TECHNIQUE: Digital Frontal and Lateral radiographic views of the chest acquired. RADIATION DOSE: NA LIMITATIONS: none FINDINGS: LUNGS AND PLEURA: Bandlike scarring in the left retrocardiac region. No fluffy alveolar infiltrates worrisome for edema or pneumonia. No pleural effusion. No pneumothorax. MEDIASTINUM AND HILAR STRUCTURES: No masses or contour abnormalities. HEART AND VASCULAR STRUCTURES: Heart normal size. No evidence for failure. BONES: No acute findings. HARDWARE: None in the chest. OTHER: No other significant finding. IMPRESSION: Bandlike scarring or atelectasis in the medial left lung base. TECHNICAL DOCUMENTATION: JOB ID: [id number] [employer]- All Rights Reserved Reading location - IP/workstation name: [email or web address]
--- NOTE | 2019-11-12 12:49 | PDOC DISCHARGE SUMMARY ---
Impression - Admit/DC Date/PCP Admission Date/Primary Care Provider: 11/07/19 08:35 ANGELO FULTON MD Discharge Date: 11/12/19 - Discharge Diagnosis (1) Pneumonia Is this a current diagnosis for this admission?: Yes (2) Chest pain Is this a current diagnosis for this admission?: Yes (3) Hypertension Is this a current diagnosis for this admission?: Yes (4) Type 2 diabetes mellitus Is this a current diagnosis for this admission?: Yes (5) Chronic kidney disease Is this a current diagnosis for this admission?: Yes (6) CAD (coronary artery disease) Is this a current diagnosis for this admission?: Yes (7) Hyperlipemia Is this a current diagnosis for this admission?: Yes (8) Benign prostate hyperplasia Is this a current diagnosis for this admission?: Yes (9) Respiratory failure Is this a current diagnosis for this admission?: Yes (10) Chronic a-fib Is this a current diagnosis for this admission?: Yes - Additional Information Discharge Diet: Diabetic Discharge Activity: Activity As Tolerated Referrals: TERA VELAZQUEZ MD [ACTIVE STAFF] - 11/17/19 2:30 pm ANGELO FULTON MD [Primary Care Provider] - 11/27/19 2:00 pm Prescriptions: Apixaban [Eliquis 2.5 mg Tablet] 2.5 mg PO BID #60 tablet Levofloxacin [Levaquin 500 mg Tablet] 500 mg PO DAILY #7 tablet Home Medications: Acetaminophen [Tylenol 325 mg Tablet] 650 mg PO Q6HP PRN 11/07/19 Amlodipine Besylate [Norvasc 10 mg Tablet] 10 mg PO DAILY 11/07/19 Aspirin [Adult Low Dose Aspirin EC] 81 mg PO DAILY 11/07/19 Atorvastatin Calcium [Lipitor 40 mg Tablet] 40 mg PO QHS 11/07/19 Brimonidine Tartrate [Alphagan 0.2% Oph Soln 5 ml] 1 drop OU BID 11/07/19 Donepezil HCl [Aricept] 10 mg PO QHS 11/07/19 Finasteride [Proscar 5 mg Tablet] 5 mg PO DAILY 11/07/19 Furosemide [Lasix 40 mg Tablet] 40 mg PO DAILY 11/07/19 Glimepiride [Amaryl 4 mg Tablet] 4 mg PO [id number] 11/07/19 Metoprolol Succinate [Toprol Xl 50 mg Tab.sr] 50 mg PO DAILY 11/07/19 Nateglinide [Starlix 60 mg Tablet] 60 mg PO TID 11/07/19 [place]-3 Fatty Acids/Fish Oil [Fish Oil 1,000 mg Capsule] 1 cap PO DAILY 11/07/19 Pantoprazole Sodium [Protonix [address] Tablet] 40 mg PO DAILY 11/07/19 Pramipexole Di-HCl [Mirapex 0.5 mg Tablet] 0.5 mg PO DAILY 11/07/19 Ranitidine HCl [Zantac] 150 mg PO DAILY 11/07/19 Tamsulosin HCl [Flomax 0.4 mg Cap.sr] 0.4 mg PO QPM 11/07/19 Timolol Maleate [Timoptic 0.5% Oph Soln 5 ml] 1 drop OU BID 11/07/19 Apixaban [Eliquis 2.5 mg Tablet] 2.5 mg PO BID #60 tablet 11/12/19 Levofloxacin [Levaquin 500 mg Tablet] 500 mg PO DAILY #7 tablet 11/12/19 History of Present Illiness History of Present Illness: SUSY GIORDANO is a 83 year old male Is a 83-year-old male with a history of the type 2 diabetes hypertension hyperlipidemia coronary artery disease came to the emergency department with a complaining of left-sided chest pain short of breath since last 3 days and also complaining of increasing the pain and a fever and chills In the emergency department patient's chest x-ray consistent with a pneumonia patient also recently have a fall and subdural hematoma patient's went to the [facility] on September and patient was on Eliquis because of the A. fib was stopped Patient's initially put on a BiPAP due to the respiratory distressed and the patient's giving the IV antibiotic When I saw the patient's feel better denied any chest pain patient CT of the chest consistent with a pneumonia patient's VQ scan is also negative Patient have a multiple comorbidity including the patient have a coronary artery disease currently see the Dr. Velazquez patient also have a chronic kidney disease currently seeing Dr. 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 intake is good Patient otherwise expressed to go home's very anxiously discussed with the patient and the daughter at the bedside with the all the test reports close follow-up continues to antibiotics check the blood sugar Patient follows a diet Patient is to follow-up with 1 week And other medical problem was all stable Discussed with the patient about the Eliquis in the fall precautions Also arranged home health Physical Exam Vital Signs: Temp Pulse Resp BP Pulse Ox 98.1 F 68 16 139/61 H 93 11/12/19 07:36 11/12/19 07:36 11/12/19 07:36 11/12/19 07:36 11/12/19 07:36 Intake & Output 11/11/19 11/12/19 11/13/19 06:59 06:59 06:59 Intake Total 1192 1384 Balance 1192 1384 Weight 97.2 kg 92.6 kg General appearance: PRESENT: no acute distress, well-developed, well-nourished Head exam: PRESENT: atraumatic, normocephalic Eye exam: PRESENT: conjunctiva pink, EOMI, PERRLA. ABSENT: scleral icterus Ear exam: PRESENT: normal external ear exam Mouth exam: PRESENT: moist, tongue midline Neck exam: ABSENT: carotid bruit, JVD, lymphadenopathy, thyromegaly Respiratory exam: PRESENT: clear to auscultation [place]. ABSENT: rales, rhonchi, wheezes Cardiovascular exam: PRESENT: RRR. ABSENT: diastolic murmur, rubs, systolic murmur Pulses: PRESENT: normal dorsalis pedis pul Vascular exam: PRESENT: normal capillary refill GI/Abdominal exam: PRESENT: normal bowel sounds, soft. ABSENT: distended, guarding, mass, organolmegaly, rebound, tenderness Rectal exam: PRESENT: deferred Extremities exam: PRESENT: full ROM. ABSENT: calf tenderness, clubbing, pedal edema Neurological exam: PRESENT: alert, awake, oriented to person, oriented to place, oriented to time, oriented to situation, CN II-XII grossly intact. ABSENT: motor sensory deficit Psychiatric exam: PRESENT: appropriate affect, normal mood. ABSENT: homicidal ideation, suicidal ideation Skin exam: PRESENT: dry, intact, warm. ABSENT: cyanosis, rash Results Laboratory Results: WBC 5.3 10^3/uL (4.0-10.5) 11/10/19 05:37 RBC 4.00 10^6/uL (4.35-5.55) L 11/10/19 05:37 Hgb 12.6 g/dL (13.5-17.0) L 11/10/19 05:37 Hct 37.2 % (37.9-51.0) L 11/10/19 05:37 MCV 93 fl (80-97) 11/10/19 05:37 MCH 31.5 pg (27.0-33.4) 11/10/19 05:37 MCHC 33.9 g/dL (32.0-36.0) 11/10/19 05:37 RDW 13.5 % (11.5-14.0) 11/10/19 05:37 Plt Count 215 10^3/uL (150-450) 11/10/19 05:37 Lymph % (Auto) 22.2 % (13-45) 11/10/19 05:37 Cavalier % (Auto) 7.9 % (3-13) 11/10/19 05:37 Eos % (Auto) 3.3 % (0-6) 11/10/19 05:37 Baso % (Auto) 0.2 % (0-2) 11/10/19 05:37 Absolute Neuts (auto) 3.5 10^3/uL (1.7-8.2) 11/10/19 05:37 Absolute Lymphs (auto) 1.2 10^3/uL (0.5-4.7) 11/10/19 05:37 Absolute Monos (auto) 0.4 10^3/uL (0.1-1.4) 11/10/19 05:37 Absolute Eos (auto) 0.2 10^3/uL (0.0-0.6) 11/10/19 05:37 Absolute Basos (auto) 0.0 10^3/uL (0.0-0.2) 11/10/19 05:37 Seg Neutrophils % 66.4 % (42-78) 11/10/19 05:37 Carbonic Acid 1.18 mmol/L (1.05-1.35) 11/09/19 17:25 HCO3/H2CO3 Ratio 21:1 11/09/19 17:25 ABG pH 7.42 (7.35-7.45) 11/09/19 17:25 ABG pCO2 39.3 mmHg (35-45) 11/09/19 17:25 ABG pO2 69.8 mmHg (80-100) L 11/09/19 17:25 ABG HCO3 25.0 mmol/L (20-24) H 11/09/19 17:25 ABG Total CO2 26.2 mmol/L (23-27) 11/09/19 17:25 ABG O2 Saturation 94.4 % (94-98) 11/09/19 17:25 ABG Base Excess 0.6 mmol/L 11/09/19 17:25 VBG pH 7.36 (7.30-7.42) 11/07/19 06:55 VBG pCO2 41.2 mmHg (35-63) 11/07/19 06:55 VBG HCO3 23.0 mmol/L (20-32) 11/07/19 06:55 VBG Base Excess -2.3 mmol/L 11/07/19 06:55 FiO2 21% 11/09/19 17:25 Sodium 138.2 mmol/L (137-145) 11/08/19 07:39 Potassium 3.6 mmol/L (3.6-5.0) 11/08/19 07:39 Chloride 105 mmol/L (98-107) 11/08/19 07:39 Carbon Dioxide 24 mmol/L (22-30) 11/08/19 07:39 Anion Gap 9 (5-19) 11/08/19 07:39 BUN 21 mg/dL (7-20) H 11/08/19 07:39 Creatinine 1.38 mg/dL (0.52-1.25) H 11/08/19 07:39 Est GFR ( Amer) 59 (>60) L 11/08/19 07:39 Est GFR (MDRD) Non-Af 49 (>60) L 11/08/19 07:39 Glucose 84 mg/dL (75-110) 11/08/19 07:39 POC Glucose 204 mg/dL (70-110) H 11/12/19 11:28 Lactic Acid (Sepsis) 1.9 mmol/L (0.7-2.1) 11/07/19 13:36 Calcium 8.9 mg/dL (8.4-10.2) 11/08/19 07:39 Magnesium 2.0 mg/dL (1.6-2.3) 11/08/19 07:39 Total Bilirubin 1.2 mg/dL (0.2-1.3) 11/07/19 06:35 Direct Bilirubin 0.4 mg/dL (0.0-0.4) 11/07/19 06:35 Neonat Total Bilirubin Not Reportable 11/07/19 06:35 Neonat Direct Bilirubin Not Reportable 11/07/19 06:35 Neonat Indirect Bili Not Reportable 11/07/19 06:35 AST 24 U/L (17-59) 11/07/19 06:35 ALT 14 U/L (<50) 11/07/19 06:35 Alkaline Phosphatase 117 U/L (38-126) 11/07/19 06:35 Creatine Kinase 79 U/L (55-170) 11/08/19 00:38 CK-MB (CK-2) 0.53 ng/mL (<4.55) 11/08/19 00:38 Troponin I 0.029 ng/mL 11/08/19 00:38 NT-Pro-B Natriuret Pep 6210 pg/mL (<450) H 11/08/19 07:39 Total Protein 8.3 g/dL (6.3-8.2) H 11/07/19 06:35 Albumin 4.5 g/dL (3.5-5.0) 11/07/19 06:35 Stl C. Difficile GDH Ag POSITIVE (NEGATIVE) 11/08/19 19:45 Stl C.difficile Tox A&B NEGATIVE (NEGATIVE) 11/08/19 19:45 Stl C.difficile Tox PCR NEGATIVE (NEGATIVE) 11/08/19 19:45 Influenza A (Rapid) NEGATIVE (NEGATIVE) 11/07/19 07:20 Influenza B (Rapid) NEGATIVE (NEGATIVE) 11/07/19 07:20 11/07/19 11/07/19 11/07/19 06:35 11:07 19:03 CK-MB (CK-2) 0.51 0.59 Troponin I < 0.012 0.015 0.019 NT-Pro-B Natriuret Pep 2820 H 11/08/19 11/08/19 00:38 07:39 CK-MB (CK-2) 0.53 Troponin I 0.029 NT-Pro-B Natriuret Pep 6210 H Impressions: Chest CT 11/07/19 00:00 IMPRESSION: Patchy area of consolidation in the left lower lobe with air bronchograms and scattered centrilobular nodular opacities in the left upper and superior portion of the left lower lobe. Clinical correlation to exclude a multifocal infection is recommended. Lung Scan-VQ NM 11/07/19 00:00 IMPRESSION: Low probability for pulmonary embolus. Chest X-Ray 11/07/19 06:27 IMPRESSION: Patchy left lower lung opacity suggestive of pneumonia. Chest X-Ray 11/09/19 00:00 IMPRESSION: Unchanged patchy parenchymal opacities in the left retrocardiac space that corresponds to the patchy areas of consolidation described on the correlative CT. Head CT 11/10/19 00:00 IMPRESSION: NO ACUTE INTRACRANIAL FINDINGS.Small subdural on the falx noted previously has resolved. EVIDENCE OF ACUTE STROKE: NO. Chest X-Ray 11/12/19 00:00 IMPRESSION: Bandlike scarring or atelectasis in the medial left lung base. Plan Time Spent: Greater than 30 Minutes - Follow with the cardiology in 1 week and follow in office 1 week we will repeat the CBC and Chem-7 Stroke Is this a Stroke Patient?: No Acute Heart Failure - Is this a Heart Failure Patient?: No
[2019-11-12 12:55] VITALS: BP 118/71
== END 2019-11-12 15:27 | disposition home health service (06) | DRG 193 ==
LOC: ER 05:21 → EH 08:35 → 4N 18:34
PROVIDERS: ADMIT Family Medicine; ATTEND Family Medicine
PROC: 5A09457 Assistance with Respiratory Ventilation, 24-96 Consecutive Hours, Continuous Positive Airway Pressure (ICD-10-PCS; principal; 2019-11-07)
DX: J18.9 Pneumonia, unspecified organism (principal); J96.01 Acute respiratory failure with hypoxia; I48.20 Chronic atrial fibrillation, unspecified; E78.5 Hyperlipidemia, unspecified; B95.4 Other streptococcus as the cause of diseases classified elsewhere; I25.10 Atherosclerotic heart disease of native coronary artery without angina pectoris; E11.22 Type 2 diabetes mellitus with diabetic chronic kidney disease; N18.3 Chronic kidney disease, stage 3 (moderate); I12.9 Hypertensive chronic kidney disease with stage 1 through stage 4 chronic kidney disease, or unspecified chronic kidney disease; Z91.14 Patient's other noncompliance with medication regimen; I25.2 Old myocardial infarction; K21.9 Gastro-esophageal reflux disease without esophagitis; K44.9 Diaphragmatic hernia without obstruction or gangrene; M19.90 Unspecified osteoarthritis, unspecified site; Z79.82 Long term (current) use of aspirin; Z79.899 Other long term (current) drug therapy; N40.0 Benign prostatic hyperplasia without lower urinary tract symptoms; Z95.5 Presence of coronary angioplasty implant and graft; Z79.01 Long term (current) use of anticoagulants; Z91.81 History of falling
CPT/HCPCS: 36415; 36600; 70450; 71045; 71046; 71250; 78582; 80048; 80053; 82550; 82553; 82803; 82962; 83605; 83735; 83880; 84484; 85025; 87040; 87070; 87077; 87086; 87150; 87186; 87205; 87324; 87449; 87493; 87804; 93005; 93010; 94660; 96360; 99291; A9540; A9567; J0692; J1956; J3490; J7030; Q9969

== ENCOUNTER → 2020-07-10 | Outpatient (CLI) | payer MEDICARE ==
--- NOTE | 2020-07-10 15:26 | RADIOLOGY REPORT (SQ) ---
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 TECHNIQUE: Axial images acquired through the brain without intravenous contrast. Images reviewed wi th bone, brain and subdural windows. Additional sagittal and coronal reconstructions were generated. Images stored on PACS. All CT scanners at this facility use dose modulation, iterative reconstruction, and/or weight based d osing when appropriate to reduce radiation dose to as low as reasonably achievable (ALARA). [facility]: Dose Right [facility]: CareDose [facility]: Dose Right [facility]: Teradose 4D [facility]: Edxact RADIATION DOSE: CT Rad equipment meets quality standard of care and radiation dose reduction techniq ues were employed. CTDIvol: 48.6 mGy. DLP: 978 mGy-cm. mGy. LIMITATIONS: None. FINDINGS: VENTRICLES: Prominent. CEREBRUM: No masses. No hemorrhage. No midline shift. Areas of low density in the white matter mos t likely due to chronic micro-vascular ischemic change. No evidence for acute infarction. CEREBELLUM: No masses. No hemorrhage. No alteration of density. No evidence for acute infarction. EXTRAAXIAL SPACES: Mild age-related involutional change. No fluid collections. No masses. ORBITS AND GLOBE: No intra- or extraconal masses. Normal contour of globe without masses. CALVARIUM: No fracture. PARANASAL SINUSES: No fluid or mucosal thickening. SOFT TISSUES: No mass or hematoma. OTHER: No other significant finding. IMPRESSION: MILD CHRONIC CHANGES OF ATROPHY AND MICROVASCULAR ISCHEMIA. NO ACUTE PROCESS. EVIDENCE OF ACUTE STROKE: NO. TECHNICAL DOCUMENTATION: JOB ID: [id number] Quality ID # [id number]: Final reports with documentation of one or more dose reduction techniques (e.g., Au tomated exposure control, adjustment of the mA and/or kV according to patient size, use of iterative reconstruction technique) 2010 [employer]- All Rights Reserved Reading location - IP/workstation name: [email or web address]
== END ==
LOC: RAD 13:42
PROVIDERS: ATTEND Family Medicine
DX: F03.91 Unspecified dementia, unspecified severity, with behavioral disturbance (principal); R41.82 Altered mental status, unspecified
CPT/HCPCS: 70450; 82565

== ENCOUNTER 2020-10-17 09:39 | Emergency (ER) | payer MEDICARE ==
--- NOTE | 2020-10-17 10:10 | ER Document Report ---
ED Medical Screen (RME) - General Chief Complaint: Flu Symptoms Stated Complaint: FALL/LEFT SHOULDER PAIN,COUGH Time Seen by Provider: 10/17/20 10:05 Primary Care Provider: ANNA MARTI MD [Primary Care Provider] - Follow up as needed Mode of Arrival: Wheelchair Information source: Patient Notes: 84-year-old male presented to ED pathology with dizziness dizziness staggering fell Tuesday just fell backwards for no reason landed in the shower has pain to both shoulders very dizzy and weak has a history of A. fib with 2 MIs and 2 stents. He is alert oriented respirations regular nonlabored lungs clear at this time. The patient was evaluated during the global Covid 19 pandemic, and that diagnosis was suspected/considered upon their initial presentation. Their evaluation, treatment and testing was consistent with current guidelines for patients who present with complaints or symptoms that may be related to Covid 19. I have greeted and performed a rapid initial assessment of this patient. A comprehensive ED assessment and evaluation of the patient, analysis of test results and completion of medical decision making process will be conducted by an additional ED providers. TRAVEL OUTSIDE OF THE [place] IN LAST 30 DAYS: No - Related Data Allergies/Adverse Reactions: adhesive tape Adverse Reaction (Intermediate, Verified 10/17/20 10:06) Pruritis Home Medications: afib Past Medical History - Social History Chew tobacco use (# tins/day): No Frequency of alcohol use: None Drug Abuse: None - Past Medical History Cardiac Medical History: Reports: Hx Atrial Fibrillation, Hx Coronary Artery Disease, Hx Heart Attack - [place] X 2, Hx Hypercholesterolemia, Hx Hypertension Denies: Hx Congestive Heart Failure, Hx Heart Murmur Pulmonary Medical History: Denies: Hx Asthma, Hx Bronchitis, Hx COPD, Hx Pneumonia, Hx Tuberculosis Neurological Medical History: Denies: Hx Cerebrovascular Accident, Hx Seizures Endocrine Medical History: Reports: Hx Diabetes Mellitus Type 2 Renal/ Medical History: Denies: Hx Peritoneal Dialysis GI Medical History: Reports: Hx Gastroesophageal Reflux Disease, Hx Hiatal Hernia. Denies: Hx Hepatitis, Hx Ulcer Musculoskeltal Medical History: Reports Hx Arthritis, Denies Hx Muscle Weakness Psychiatric Medical History: Denies: Hx Depression Infectious Medical History: Denies: Hx Hepatitis Past Surgical History: Reports: Hx Cardiac Catheterization, Hx Coronary Stent, Hx Herniorrhaphy. Denies: Hx Pacemaker. Comment Only: Hx Open Heart Surgery - STENT PLACED - Immunizations Hx Diphtheria, Pertussis, Tetanus Vaccination: Yes Physical Exam - Vital signs Vitals: Temp Pulse Resp BP 98.1 F 62 20 103/58 L 10/17/20 09:51 10/17/20 09:51 10/17/20 09:51 10/17/20 09:51 Course - Vital Signs Vital signs: Temp Pulse Resp BP Pulse Ox 98.1 F 62 20 103/58 L 10/17/20 10:01 10/17/20 09:51 10/17/20 09:51 10/17/20 09:51 Doctor's Discharge - Discharge Referrals: ANNA MARTI MD [Primary Care Provider] - Follow up as needed
[2020-10-17 10:50] LABS: APPEARANCE,URINE CLEAR; BILIRUBIN,URINE NEGATIVE (NEGATIVE); COLOR,URINE STRAW; GLUCOSE, URINE NEGATIVE (NEGATIVE); KETONES,URINE NEGATIVE (NEGATIVE); LEUKOCYTE ESTERASE,URINE NEGATIVE (NEGATIVE); NITRITE,URINE NEGATIVE (NEGATIVE); PROTEIN,URINE NEGATIVE (NEGATIVE); URINE SPECIFIC GRAVITY 1.009; UROBILINOGEN,URINE NEGATIVE mg/dL (<2.0)
[2020-10-17 10:58] LABS: A TYPE INFLUENZA AG NEGATIVE (NEGATIVE); B INFLUENZA AG NEGATIVE (NEGATIVE)
[2020-10-17 11:22] LABS: ABSOLUTE EOSINOPHILS # (AUTO) 0.2 10^3/uL (0.0-0.6); ABSOLUTE LYMPHOCYTES (AUTO) 1.1 10^3/uL (0.5-4.7); ABSOLUTE MONOCYTES (AUTO) 0.5 10^3/uL (0.1-1.4); ABSOLUTE NEUT (AUTO) 4.7 10^3/uL (1.7-8.2); BASOPHILS % (AUTO) 0.7 % (0-2); EOSINOPHILS % (AUTO) 3.2 % (0-6); HEMATOCRIT 39.8 % (37.9-51.0); HEMOGLOBIN 13.1 g/dL (13.5-17.0); LYMPHOCYTES % (AUTO) 16.9 % (13-45); MEAN CORPUSCULAR HEMOGLOBIN 31.4 pg (27.0-33.4); MEAN CORPUSCULAR VOLUME 95 fl (80-97); MONOCYTES % (AUTO) 7.1 % (3-13); PLATELET COUNT 241 10^3/uL (150-450); RED BLOOD COUNT 4.18 10^6/uL (4.35-5.55); RED CELL DISTRIBUTION WIDTH 14.4 % (11.5-14.0); SEGMENTED NEUTROPHILS % (AUTO) 72.1 % (42-78); TOTAL CELLS COUNTED % (AUTO) 100 %; WHITE BLOOD COUNT 6.5 10^3/uL (4.0-10.5)
[2020-10-17 11:27] LABS: INTERNATIONAL RATION (INR) 1.23; PROTHROMBIN TIME 15.7 SEC (11.4-15.4)
[2020-10-17 11:28] LABS: PARTIAL THROMBOPLASTIN TIME 34.8 SEC (23.5-35.8)
--- NOTE | 2020-10-17 11:40 | RADIOLOGY REPORT (SQ) ---
EXAM DESCRIPTION: SHOULDER LEFT 2 OR MORE VIEWS; SHOULDER RIGHT 2 OR MORE VIEWS IMAGES COMPLETED DATE/TIME: 10/17/2020 11:31 am REASON FOR STUDY: fall injury COMPARISON: Chest films same date Left shoulder films 02/20/2008, 06/11/2019 NUMBER OF VIEWS: Three views right shoulder, three views left shoulder. TECHNIQUE: Internal rotation, external rotation, and Y view images acquired of the right and left sh oulder. LIMITATIONS: None. FINDINGS: MINERALIZATION: Osteopenic BONES: No acute fracture. No worrisome bone lesions. JOINTS: Bilateral glenohumeral joint space narrowing with mild bony spurring. No dislocation. Bilat eral AC joint bony spurring without widening. VISUALIZED LUNGS AND RIBS: No pneumothorax. No rib fracture. SOFT TISSUES: No radiopaque foreign body. OTHER: No other significant finding. IMPRESSION: No acute findings TECHNICAL DOCUMENTATION: JOB ID: [id number] 2010 [employer]- All Rights Reserved Reading location - IP/workstation name: [id number]
--- NOTE | 2020-10-17 11:40 | RADIOLOGY REPORT (SQ) ---
EXAM DESCRIPTION: SHOULDER LEFT 2 OR MORE VIEWS; SHOULDER RIGHT 2 OR MORE VIEWS IMAGES COMPLETED DATE/TIME: 10/17/2020 11:31 am REASON FOR STUDY: fall injury COMPARISON: Chest films same date Left shoulder films 02/20/2008, 06/11/2019 NUMBER OF VIEWS: Three views right shoulder, three views left shoulder. TECHNIQUE: Internal rotation, external rotation, and Y view images acquired of the right and left sh oulder. LIMITATIONS: None. FINDINGS: MINERALIZATION: Osteopenic BONES: No acute fracture. No worrisome bone lesions. JOINTS: Bilateral glenohumeral joint space narrowing with mild bony spurring. No dislocation. Bilat eral AC joint bony spurring without widening. VISUALIZED LUNGS AND RIBS: No pneumothorax. No rib fracture. SOFT TISSUES: No radiopaque foreign body. OTHER: No other significant finding. IMPRESSION: No acute findings TECHNICAL DOCUMENTATION: JOB ID: [id number] 2010 [employer]- All Rights Reserved Reading location - IP/workstation name: [id number]
[2020-10-17 11:42] LABS: ALBUMIN 3.8 g/dL (3.5-5.0); ALKALINE PHOSPHATASE 72 U/L (38-126); ANION GAP 7 (5-19); ASPARTATE AMINO TRANSFERASE 22 U/L (17-59); BILIRUBIN,DIRECT 0.1 mg/dL (0.0-0.4); BILIRUBIN,TOTAL 0.9 mg/dL (0.2-1.3); BLOOD UREA NITROGEN 29 mg/dL (7-20); CALCIUM 9.3 mg/dL (8.4-10.2); CARBON DIOXIDE 26 mmol/L (22-30); CHLORIDE 102 mmol/L (98-107); CREATINE KINASE 155 U/L (55-170); GLUCOSE 331 mg/dL (75-110); TOTAL PROTEIN 6.8 g/dL (6.3-8.2)
--- NOTE | 2020-10-17 11:42 | RADIOLOGY REPORT (SQ) ---
EXAM DESCRIPTION: CHEST SINGLE VIEW IMAGES COMPLETED DATE/TIME: 10/17/2020 11:31 am REASON FOR STUDY: cough weak fall COMPARISON: CT chest 11/07/2019 Chest films 11/09/2019, 11/12/2019 EXAM PARAMETERS: NUMBER OF VIEWS: One view. TECHNIQUE: Single frontal radiographic view of the chest acquired. RADIATION DOSE: NA LIMITATIONS: None. FINDINGS: LUNGS AND PLEURA: No opacities, masses or pneumothorax. No pleural effusion. MEDIASTINUM AND HILAR STRUCTURES: No masses. Contour normal. HEART AND VASCULAR STRUCTURES: Heart normal in size. Normal vasculature. BONES: No acute findings. HARDWARE: None in the chest. OTHER: No other significant finding. IMPRESSION: NO ACUTE RADIOGRAPHIC FINDING IN THE CHEST. TECHNICAL DOCUMENTATION: JOB ID: [id number] 2010 [employer]- All Rights Reserved Reading location - IP/workstation name: [id number]
--- NOTE | 2020-10-17 11:54 | ER Document Report ---
ED General - General Chief Complaint: Flu Symptoms Stated Complaint: FALL/LEFT SHOULDER PAIN,COUGH Time Seen by Provider: 10/17/20 10:05 Primary Care Provider: PARKER SANDOVAL MD [ACTIVE STAFF] - Follow up as needed KEHINDE CHERRY JR, DO [ACTIVE PROVISIONAL STAFF] - Follow up as needed Mode of Arrival: Wheelchair Information source: Patient Notes: 84-year-old male patient with history of A. fib presenting to the emergency department complaining of bilateral shoulder pain. Patient reports he fell 4 days ago backwards. He states he is now not sought medical treatment since this happened. He is not sure why he fell. His daughters urged him to come and get checked out today. He denies any chest pain, shortness of breath, nausea, vomiting, diarrhea, fever or chills. TRAVEL OUTSIDE OF THE [place] IN LAST 30 DAYS: No - Related Data Allergies/Adverse Reactions: adhesive tape Adverse Reaction (Intermediate, Verified 10/17/20 10:06) Pruritis Home Medications: afib Past Medical History - General Information source: Patient - Social History Smoking Status: Unknown if Ever Smoked Chew tobacco use (# tins/day): No Frequency of alcohol use: None Drug Abuse: None Family History: CAD, Hypertension Patient has homicidal ideation: No - Past Medical History Cardiac Medical History: Reports: Hx Atrial Fibrillation, Hx Coronary Artery Disease, Hx Heart Attack - [place] X 2, Hx Hypercholesterolemia, Hx Hypertension Denies: Hx Congestive Heart Failure, Hx Heart Murmur Pulmonary Medical History: Denies: Hx Asthma, Hx Bronchitis, Hx COPD, Hx Pneumonia, Hx Tuberculosis Neurological Medical History: Denies: Hx Cerebrovascular Accident, Hx Seizures Endocrine Medical History: Reports: Hx Diabetes Mellitus Type 2 Renal/ Medical History: Denies: Hx Peritoneal Dialysis GI Medical History: Reports: Hx Gastroesophageal Reflux Disease, Hx Hiatal Hernia. Denies: Hx Hepatitis, Hx Ulcer Musculoskeletal Medical History: Reports Hx Arthritis, Denies Hx Muscle Weakness Psychiatric Medical History: Denies: Hx Depression Infectious Medical History: Denies: Hx Hepatitis Past Surgical History: Reports: Hx Cardiac Catheterization, Hx Coronary Stent, Hx Herniorrhaphy. Denies: Hx Pacemaker. Comment Only: Hx Open Heart Surgery - STENT PLACED - Immunizations Hx Diphtheria, Pertussis, Tetanus Vaccination: Yes Hx Pneumococcal Vaccination: 03/04/14 Review of Systems - Review of Systems Constitutional: Other - Intermittent dizziness Musculoskeletal: Other - Bilateral shoulder pain -: Yes All other systems reviewed and negative Physical Exam - Vital signs Vitals: Temp Pulse Resp BP 98.1 F 62 20 103/58 L 10/17/20 09:51 10/17/20 09:51 10/17/20 09:51 10/17/20 09:51 - Notes Notes: PHYSICAL EXAMINATION: GENERAL: Well-appearing, well-nourished and in no acute distress. HEAD: Atraumatic, normocephalic. EYES: Pupils equal round and reactive to light, extraocular movements intact, sclera anicteric, conjunctiva are normal. ENT: Nares patent, oropharynx clear without exudates. Moist mucous membranes. NECK: Normal range of motion, supple without lymphadenopathy LUNGS: Breath sounds clear to auscultation bilaterally and equal. No wheezes rales or rhonchi. HEART: Regular rate and rhythm without murmurs ABDOMEN: Soft, nontender, nondistended abdomen. No guarding, no rebound. No masses appreciated. Musculoskeletal: Normal range of motion, no pitting or edema. No cyanosis. See below for left shoulder exam. NEUROLOGICAL: Cranial nerves grossly intact. Normal speech, normal gait. Normal sensory, motor exams PSYCH: Normal mood, normal affect. SKIN: Ecchymosis noted to posterior left scapular area. Tenderness with palpation. No crepitus. Course - Re-evaluation Re-evalutation: Patient appears well, nontoxic. He does have ecchymosis to his posterior left shoulder/scapular area. X-rays are unremarkable. His work-up today was reassuring, shows no acute pathology. Creatinine elevated at 1.73, this is at or near patient's baseline as he has CKD. Patient reports he feels much better and wants to go home. Patient will follow up with Ortho due to the pain that he is having in his shoulder as I am unable to rule out a ligament injury or internal shoulder injury. Patient agreeable to this plan. Patient declines arm sling. - Vital Signs Vital signs: Temp Pulse Resp BP Pulse Ox 98.1 F 62 15 143/72 H 99 10/17/20 10:01 10/17/20 09:51 10/17/20 12:01 10/17/20 12:01 10/17/20 12:01 - Laboratory Result Diagrams: 10/17/20 11:04 10/17/20 11:04 Laboratory results interpreted by me: 10/17/20 10/17/20 10/17/20 11:04 11:04 11:04 RBC 4.18 L Hgb 13.1 L RDW 14.4 H PT 15.7 H Sodium 135.3 L BUN 29 H Creatinine 1.73 H Est GFR ( Amer) 46 L Est GFR (MDRD) Non-Af 38 L Glucose 331 H - Diagnostic Test Radiology reviewed: Image reviewed, Reports reviewed Discharge - Discharge Clinical Impression: Cough, Person under investigation for COVID-19 Shoulder injury Qualifiers: Encounter type: initial encounter Laterality: left Qualified Code(s): S49.92XA - Unspecified injury of left shoulder and upper arm, initial encounter Condition: Stable Disposition: HOME, SELF-CARE Additional Instructions: the x-rays of your chest and both of her shoulders did not show any acute injuries. X-rays look at bones only so this does not necessarily rule out a ligament injury or a rotator cuff injury. I would like you to see the orthopedic doctor for follow up on your shoulder pain. Call them to schedule an appointment. In the meantime please continue taking [id number] medications for pain and discomfort. You may also put some ice to the area. Your lab work today was reassuring. Your creatinine level was elevated, it is consistent with what your baseline creatinine level is. Please continue to follow-up with nephrology as originally scheduled regarding this. You are pending a COVID-19 test. Someone will contact you with the results of this test, this is typically taking 2 to 3 days. Please return with any new or worsening symptoms, and we are happy to reevaluate you at any time. Referrals: KEHINDE CHERRY JR, [ACTIVE PROVISIONAL STAFF] - Follow up as needed PARKER SANDOVAL MD [ACTIVE STAFF] - Follow up as needed
[2020-10-17] MEDS ORDERED: HYDROCODONE/ACETAMINOPHEN 5-325 MG (6 TAB/ER DISP) PO PRN (12:30)
[2020-10-17 12:33] VITALS: BP 143/72
== END 2020-10-17 12:45 | disposition home or self-care (01) ==
LOC: ER 09:39
DX: S40.012A Contusion of left shoulder, initial encounter (principal); M25.512 Pain in left shoulder; M25.511 Pain in right shoulder; W18.2XXA Fall in (into) shower or empty bathtub, initial encounter; Y92.002 Bathroom of unspecified non-institutional (private) residence as the place of occurrence of the external cause; R05 Cough; R42 Dizziness and giddiness; I12.9 Hypertensive chronic kidney disease with stage 1 through stage 4 chronic kidney disease, or unspecified chronic kidney disease; E11.22 Type 2 diabetes mellitus with diabetic chronic kidney disease; N18.9 Chronic kidney disease, unspecified; I25.10 Atherosclerotic heart disease of native coronary artery without angina pectoris; I25.2 Old myocardial infarction; I48.91 Unspecified atrial fibrillation; Z79.899 Other long term (current) drug therapy; Z95.5 Presence of coronary angioplasty implant and graft; Z20.828 Contact with and (suspected) exposure to other viral communicable diseases
CPT/HCPCS: 99284; 36415; 87070; 87880; 82550; 83690; 85025; 85610; 85730; 80053; 81001; 84484; 87804; 71045; 73030 ×2; U0003; A9270; C9803; 87635

== ENCOUNTER 2020-10-26 01:55 | Emergency (ER) | payer MEDICARE ==
[2020-10-26 03:32] LABS: APPEARANCE,URINE CLEAR; BILIRUBIN,URINE NEGATIVE (NEGATIVE); COLOR,URINE YELLOW; GLUCOSE, URINE 150 mg/dL (NEGATIVE); KETONES,URINE NEGATIVE (NEGATIVE); LEUKOCYTE ESTERASE,URINE NEGATIVE (NEGATIVE); NITRITE,URINE NEGATIVE (NEGATIVE); PROTEIN,URINE 100 mg/dL (NEGATIVE); URINE SPECIFIC GRAVITY 1.012; UROBILINOGEN,URINE NEGATIVE mg/dL (<2.0)
[2020-10-26 03:40] LABS: ABSOLUTE EOSINOPHILS # (AUTO) 0.2 10^3/uL (0.0-0.6); ABSOLUTE LYMPHOCYTES (AUTO) 1.4 10^3/uL (0.5-4.7); ABSOLUTE MONOCYTES (AUTO) 0.6 10^3/uL (0.1-1.4); ABSOLUTE NEUT (AUTO) 4.4 10^3/uL (1.7-8.2); BASOPHILS % (AUTO) 0.6 % (0-2); EOSINOPHILS % (AUTO) 2.6 % (0-6); HEMATOCRIT 39.7 % (37.9-51.0); HEMOGLOBIN 13.1 g/dL (13.5-17.0); LYMPHOCYTES % (AUTO) 21.7 % (13-45); MEAN CORPUSCULAR HEMOGLOBIN 31.3 pg (27.0-33.4); MEAN CORPUSCULAR HGB CONC 33.1 g/dL (32.0-36.0); MEAN CORPUSCULAR VOLUME 95 fl (80-97); MONOCYTES % (AUTO) 9.1 % (3-13); PLATELET COUNT 239 10^3/uL (150-450); RED BLOOD COUNT 4.19 10^6/uL (4.35-5.55); RED CELL DISTRIBUTION WIDTH 14.3 % (11.5-14.0); TOTAL CELLS COUNTED % (AUTO) 100 %; WHITE BLOOD COUNT 6.6 10^3/uL (4.0-10.5)
[2020-10-26 04:11] LABS: ALBUMIN 4.1 g/dL (3.5-5.0); ALKALINE PHOSPHATASE 76 U/L (38-126); ANION GAP 9 (5-19); ASPARTATE AMINO TRANSFERASE 19 U/L (17-59); BILIRUBIN,DIRECT 0.3 mg/dL (0.0-0.4); BILIRUBIN,TOTAL 0.9 mg/dL (0.2-1.3); BLOOD UREA NITROGEN 27 mg/dL (7-20); CARBON DIOXIDE 24 mmol/L (22-30); CHLORIDE 103 mmol/L (98-107); CREATINE KINASE 52 U/L (55-170); GLUCOSE 276 mg/dL (75-110); POTASSIUM 4.4 mmol/L (3.6-5.0); TOTAL PROTEIN 6.9 g/dL (6.3-8.2)
[2020-10-26 04:22] LABS: CREATINE KINASE MB 0.89 ng/mL (<4.55)
[2020-10-26 04:24] LABS: TROPONIN I < 0.012 ng/mL
[2020-10-26] MEDS ORDERED: NORMAL SALINE 1000 ML 1,000 ML IV ONE (04:40)
--- NOTE | 2020-10-26 04:49 | ER Document Report ---
ED General - General Chief Complaint: General Weakness Stated Complaint: FEELING FEVERISH/TIGHTNESS IN CHEST/INSOMNIA Time Seen by Provider: 10/26/20 04:33 Primary Care Provider: ANNA MARTI MD [Primary Care Provider] - Follow up as needed TRAVEL OUTSIDE OF THE [place] IN LAST 30 DAYS: No - HPI Context: Time:429 Chief Complaint: [Weakness, dizziness, feeling off balance] [This is a 84-year-old male who presents to the emergency department complaining of dizziness and lightheadedness for the past 2 weeks. Patient states he is diabetic and he is on diuretic medication which he states makes him have to "pee all the time." Patient denies chest pain. Patient denies fever, chills, abdominal pain, shortness of breath, loss of sense of taste or loss of sense of smell, history of COVID-19 infection, known exposure to Covid positive patients or patients under investigation for Covid infection. Patient states he does not really drink water but does drink diet Dr. Purcell ] History obtained from [patient] Symptoms began:[2 weeks ago] Onset: [Gradual] Timing: [Gradual] Quality: [Dizzy] Intensity: [Moderate] Location: [Patient states he just feels dizzy and off balance all over] Radiation: [Denies] [The pain does not migrate to a new location.] Aggravating factors: [none] Relieving factors: [none] [Denies] SOB [Denies] nausea [Denies] vomiting [Denies] sweats [Denies] fever [Denies] cough [Denies] calf or leg swelling or pain - Related Data Allergies/Adverse Reactions: adhesive tape Adverse Reaction (Intermediate, Verified 10/17/20 10:06) Pruritis Home Medications: medications in car Past Medical History - General Information source: Patient - Social History Smoking Status: Never Smoker Drug Abuse: None Lives with: Family Family History: Reviewed & Not Pertinent, CAD, Hypertension - Past Medical History Cardiac Medical History: Reports: Hx Atrial Fibrillation, Hx Coronary Artery Disease, Hx Heart Attack - [place] X 2, Hx Hypercholesterolemia, Hx Hypertension Denies: Hx Congestive Heart Failure, Hx Heart Murmur Pulmonary Medical History: Denies: Hx Asthma, Hx Bronchitis, Hx COPD, Hx Pneumonia, Hx Tuberculosis Neurological Medical History: Denies: Hx Cerebrovascular Accident, Hx Seizures Endocrine Medical History: Reports: Hx Diabetes Mellitus Type 2 Renal/ Medical History: Denies: Hx Peritoneal Dialysis GI Medical History: Reports: Hx Gastroesophageal Reflux Disease, Hx Hiatal Hernia. Denies: Hx Hepatitis, Hx Ulcer Musculoskeletal Medical History: Reports Hx Arthritis, Denies Hx Muscle Weakness Psychiatric Medical History: Denies: Hx Depression Infectious Medical History: Denies: Hx Hepatitis Past Surgical History: Reports: Hx Cardiac Catheterization, Hx Coronary Stent, Hx Herniorrhaphy. Denies: Hx Pacemaker. Comment Only: Hx Open Heart Surgery - STENT PLACED - Immunizations Hx Diphtheria, Pertussis, Tetanus Vaccination: Yes Hx Pneumococcal Vaccination: 03/04/14 Review of Systems - Review of Systems Notes: Review of systems as below unless otherwise stated in HPI. CONSTITUTIONAL [No] fever, [No] chills. EYES [No] eye pain. ENT [No] URI symptoms, [No] sore throat, [No] ear pain. CARDIOVASCULAR [No] chest pain, [No] palpitations, [No] edema. RESPIRATORY [No] Cough, [No] SOB, [No] wheezing. GASTROINTESTINAL [No] abdominal pain, [No] nausea, [No] Diarrhea, [No] Vomiting, [No] constipation, [No] melena, [No] rectal bleeding. GENITOURINARY [No] dysuria, [No] urinary frequency, [No] hematuria, [No] urinary urgency MUSCULOSKELETAL [No] Back pain. SKIN [No] Rash. NEUROLOGIC [No] Headache, [No] recent seizures, [No] paralysis,[No] parathesias, positive dizziness, positive lightheadedness ENDOCRINE [No] polyuria. HEMO/LYMPATIC [No] easy brusing PSYCHIATRIC [No] depression. Physical Exam - Vital signs Vitals: Temp Pulse Resp BP Pulse Ox 97.8 F 58 L 18 139/67 H 96 10/26/20 02:13 10/26/20 02:13 10/26/20 02:13 10/26/20 02:13 10/26/20 02:13 - Notes Notes: CONSTITUTIONAL [Vital signs reviewed, patient's orthostatics are positive, patient appears comfortable, Alert and oriented X 3, Normal stature.] HEAD [Atraumatic, Normocephalic.] EYES [Eyes are normal to inspection, No discharge from eyes, Extraocular muscles intact, Sclera are normal, Conjunctiva are normal. No horizontal or vertical nystagmus noted] ENT [External ears normal to inspection, Nose examination normal, Mouth normal to inspection.] NECK [Normal ROM, No jugular venous distention, No meningeal signs, ] RESPIRATORY CHEST [Chest is nontender, Breath sounds normal, No respiratory distress.] CARDIOVASCULAR [Irregular rhythm, No murmurs, Normal S1 S2, No rub, No gallop.] ABDOMEN [Abdomen is nontender, No pulsatile masses, No other masses, Bowel sounds normal, No distension, No peritoneal signs, No hernias.] BACK [There is no CVA Tenderness, There is no tenderness to palpation, Normal inspection.] UPPER EXTREMITY [Inspection normal, No cyanosis, No clubbing, No edema, LOWER EXTREMITY [Inspection normal, No cyanosis, No clubbing, No edema, No calf tenderness, NEURO [No focal motor deficits, No focal sensory deficits, Speech normal.] SKIN [Skin is warm, Skin is dry, Skin is normal color.] PSYCHIATRIC [Normal affect. ] Course - Re-evaluation Re-evalutation: 10/26/20 05:25 Results of ED MSE discussed with patient and with patient's daughter by phone who is waiting for her father in the car. Given the patient's positive ortho statics and lab work, I think the patient is dehydrated and would benefit from a liter of saline. Patient states he is agreeable to this. All questions were answered prior to discharge. Emergency signs and symptoms, reasons to return to the emergency department discussed with patient. - Vital Signs Vital signs: Temp Pulse Resp BP Pulse Ox 97.8 F 50 L 18 157/76 H 96 10/26/20 02:13 10/26/20 04:24 10/26/20 02:13 10/26/20 04:24 10/26/20 02:13 - Laboratory Result Diagrams: 10/26/20 02:40 10/26/20 02:40 Laboratory results interpreted by me: 10/26/20 10/26/20 10/26/20 02:40 02:40 03:00 RBC 4.19 L Hgb 13.1 L RDW 14.3 H Sodium 136.4 L BUN 27 H Creatinine 1.58 H Est GFR ( Amer) 51 L Est GFR (MDRD) Non-Af 42 L Glucose 276 H Creatine Kinase 52 L Urine Protein 100 H Urine Glucose (UA) 150 H - EKG Interpretation by Me Additional EKG results interpreted by me: 10/26/20 05:26 EKG obtained on 10/26/2020 at 0245 hrs. was interpreted by this MD. Findings: Rate controlled atrial fibrillation, rate 45, there are no discernible P waves, QRS complex appears narrow, there are no obvious patterns of ST segment elevation, depression or reciprocal changes seen to suggest acute myocardial ischemia or infarction. No acute. With prior EKG from 11/07/2019, the morphology between the 2 EKGs are grossly unchanged. Impression: Right controlled atrial fibrillation Discharge - Discharge Clinical Impression: Dehydration Condition: Stable Disposition: HOME, SELF-CARE Additional Instructions: Return to the Emergency Department without delay if any worse. HOME CARE INSTRUCTIONS & INFORMATION: Thank you for choosing us for your medical needs. We hope you're satisfied with the care you received. After you leave, you must properly care for your problem and, at the same time, observe its progress. Any condition can change. Some illnesses can change rapidly over hours or days. If your condition worsens, return to the Emergency Department or see your physician promptly. ABOUT YOUR X-RAYS AND EKG'S: If you had an EKG or X-rays taken, they have been read by the Emergency Physician. The X-rays and EKG's will also be read by a Radiologist or Computer Technology Instructor within 24 hours. If discrepancies are noted, you will be notified by telephone. Please be certain the ED has a correct telephone number & address where you can be reached. Also, realize that some fractures or abnormalities do not show up on initial X-rays. If your symptoms continue, see your physician. ABOUT YOUR LABORATORY TEST: If you had laboratory tests, the results have been reviewed by the Emergency Physician. Some test results (for example cultures) may not be available for several days. You will be contacted if any test result shows you need additional treatment. Please be certain the ED has a correct telephone number and address where you can be reached. ABOUT YOUR MEDICATIONS: You will receive instructions on how to take your medicine on the prescription label you receive. Additional information may be provided by the Pharmacy. If you have questions afterwards, call the ED for clarification or further instructions. Some prescribed medications may cause drowsiness. Do not perform tasks such as driving a car or operating machinery without consulting your Pharmacist. If you feel you need a refill of pain medication, your condition will need re-evaluation. Please do not call for a refill of any medication. ABOUT YOUR SIGNATURE: Signature of this document acknowledges to followin. Understanding that you received emergency treatment and that you may be released before al medical problems are known or treated. Please be certain the ED has a correct phone number & address where you can be reached. 2. Acknowledgement that you will arrange for follow-up care as recommended. 3. Authorization for the Emergency Physician to provide information to your follow-up Physician in order to maximize your care. AT ANY TIME, IF YOUR SYMPTOMS CHANGE SIGNIFICANTLY OR WORSEN OR YOU DEVELOP NEW SYMPTOMS, RETURN TO THE EMERGENCY DEPARTMENT IMMEDIATELY FOR RE-EVALUATION. OUR GOAL IS TO PROVIDE EXCELLENT MEDICAL CARE! WE HOPE THAT WE HAVE MET YOUR EXPECTATIONS DURING YOUR EMERGENCY DEPARTMENT VISIT AND THAT YOU FEEL YOU HAVE RECEIVED EXCELLENT CARE! Dehydration Dehydration can result from vomiting or diarrhea, fever, or decreased intake of fluids. If severe, hospitalization and intravenous fluids may be required. Most cases are treated at home with fluids by mouth. For the next 24 hours, drink lots of clear fluids. In mild cases, this can be soda pop or sports drinks. For more severe dehydration, the doctor may recommend special fluids such as Pedialyte or Lytren. Try to get three liters (3 quarts) of fluid per day. If vomiting occurs, continue to drink the fluids frequently (every 15 to 20 minutes), but in small amounts (one or two ounces). Depending on the type of dehydration, the doctor may prescribe antinausea medicine or potassium replacements. Call the doctor or return for re-examination if you become progressively weak, vomit repeatedly, or have other new symptoms. Referrals: ANNA MARTI MD [Primary Care Provider] - Follow up as needed
[2020-10-26 06:00] VITALS: BP 160/86
--- NOTE | 2020-10-26 08:37 | EKG REPORT ---
SEVERITY:- ABNORMAL ECG - ATRIAL FIBRILLATION WITH SLOW VENTRICULAR RESPONSE : Confirmed by: Jose Simms MD 26-Oct-2020 08:37:20
== END 2020-10-26 06:06 | disposition home or self-care (01) ==
LOC: ER 01:55
DX: E86.0 Dehydration (principal); R53.1 Weakness; R50.9 Fever, unspecified; R07.9 Chest pain, unspecified; G47.00 Insomnia, unspecified; R42 Dizziness and giddiness; Z79.899 Other long term (current) drug therapy; I48.91 Unspecified atrial fibrillation; I25.10 Atherosclerotic heart disease of native coronary artery without angina pectoris; I25.2 Old myocardial infarction; E78.00 Pure hypercholesterolemia, unspecified; I10 Essential (primary) hypertension; E11.9 Type 2 diabetes mellitus without complications
CPT/HCPCS: 93005; 99284; 96360; 36415; 82553; 82550; 85025; 80053; 81001; 84484; 93010; J7030